=== PATIENT | male | born 1940 | race Caucasian/White ===

== ENCOUNTER 2023-10-26 09:54 | Inpatient (IN) | payer OTHER, MEDICAID ==
[~2023-10-26] VITALS: Ht 172.7 cm; Wt 75.0 kg
[2023-10-26 10:36] VITALS: PULSE 94; RESP 18; O2SAT 96
[2023-10-26 10:59] LABS: Basophils # (auto) 0 10 ^3/uL (0-0.2); Basophils % (auto) 0.3 % (0.0-2.0); Eosinophils # (auto) 0.2 10 ^3/uL (0-0.8); Eosinophils % (auto) 3.2 % (0.0-7.0); Hemoglobin 13.3 g/dL (13.5-17.5); Lymphocytes # (auto) 0.9 10 ^3/uL (0.4-5.4); Lymphocytes % (auto) 16.4 % (10.0-50.0); Mean Corpuscular Hemoglobin 29.4 pg (28.0-32.0); Mean Corpuscular Volume 86.6 fL (80.0-100.0); Monocytes # (auto) 0.4 10 ^3/uL (0-1.3); Monocytes % (auto) 6.5 % (0.0-12.0); Neutrophils % (auto) 73.6 % (37.0-80.0); Nucleated Red Blood Cells % 0.2 %; Red Cell Distribution Width 15.5 % (11.8-14.3); White Blood Cell 5.4 10^3/uL (4.4-10.8)
[2023-10-26 11:20] LABS: Alanine Aminotransferase 15 U/L (7-40); Albumin 4.1 g/dL (3.2-4.8); Alkaline Phosphatase 85 U/L (46-116); Anion Gap 5 (5-15); Aspartate Aminotransferase 12 U/L (13-40); Blood Urea Nitrogen 12 mg/dL (9-23); Calcium 9.6 mg/dL (8.5-10.1); Carbon Dioxide 30 mmol/L (20-30); Chloride 106 mmol/L (98-107); Glucose 81 mg/dL (74-106); INR 1.17 (0.9-1.15); Partial Thromboplastin Time 29.3 SEC (24.5-34.5); Potassium 3.9 mmol/L (3.5-5.1); Prothrombin Time 12.3 sec (9.3-11.8); Sodium 141 mmol/L (136-145)
[2023-10-26 11:21] LABS: Total Protein 6.4 g/dL (5.7-8.2)
[2023-10-26] MEDS ORDERED: ASCO10003 PO (12:27)
[2023-10-26] MEDS ORDERED: ACET-1882 PO (12:27)
[2023-10-26] MEDS ORDERED: ACETAMINOPHEN 325 MG TAB PO PRN (12:30)
[2023-10-26] MEDS: IOHEXOL 350 MG/ML 100ML IJ ONE (16:49)
[2023-10-26] MEDS: SODIUM CHLORIDE 0.9% 1,000 ML IV SCH (17:26)
[2023-10-26 19:15] VITALS: PULSE 94; RESP 18; O2SAT 96
[2023-10-26 22:35] VITALS: BP 148/76; PULSE 82; RESP 23; O2SAT 90
[2023-10-26] MEDS: diphenhdrAMINE HCL 50 MG/1 ML VL IV ONE (22:39)
[2023-10-27] VITALS (7 sets, daily range): BP systolic 119–150; BP diastolic 75–101; PULSE 66–86; RESP 18–21; TEMP 97.6–98.8; O2SAT 90–95
[2023-10-27 06:53] LABS: Basophils # (auto) 0 10 ^3/uL (0-0.2); Eosinophils # (auto) 0.1 10 ^3/uL (0-0.8); Eosinophils % (auto) 2.9 % (0.0-7.0); Hemoglobin 13.2 g/dL (13.5-17.5); Lymphocytes % (auto) 23.1 % (10.0-50.0); Mean Corpuscular Hemoglobin 29.2 pg (28.0-32.0); Mean Corpuscular Hgb Conc. 33.8 g/dL (32.0-36.0); Mean Corpuscular Volume 86.4 fL (80.0-100.0); Monocytes # (auto) 0.4 10 ^3/uL (0-1.3); Monocytes % (auto) 8.7 % (0.0-12.0); Neutrophils # (auto) 2.8 10 ^3/uL (1.6-8.6); Neutrophils % (auto) 64.3 % (37.0-80.0); Nucleated Red Blood Cells % 0.1 %; Red Blood Cells 4.52 10^6/uL (4.5-5.90); Red Cell Distribution Width 15.1 % (11.8-14.3); White Blood Cell 4.4 10^3/uL (4.4-10.8)
[2023-10-27 07:14] LABS: Alanine Aminotransferase 16 U/L (7-40); Albumin 3.8 g/dL (3.2-4.8); Alkaline Phosphatase 82 U/L (46-116); Anion Gap 10 (5-15); Aspartate Aminotransferase 15 U/L (13-40); Bilirubin, Total 1.4 mg/dL (0.2-1.0); Blood Urea Nitrogen 8 mg/dL (9-23); Calcium 9.5 mg/dL (8.5-10.1); Carbon Dioxide 23 mmol/L (20-30); Chloride 106 mmol/L (98-107); Glucose 76 mg/dL (74-106); Potassium 3.7 mmol/L (3.5-5.1); Sodium 139 mmol/L (136-145); Total Protein 6.2 g/dL (5.7-8.2)
[2023-10-27] MEDS: ENOXAPARIN SOD 40 MG/0.4 ML SYRINGE SC SCH (09:29)
[2023-10-27] MEDS: ASCORBIC ACID PO SCH (09:29)
[2023-10-27] MEDS ORDERED: HYDR-4924 PO (17:12)
[2023-10-27] MEDS ORDERED: TRAZ-227 PO (17:12)
[2023-10-27] MEDS ORDERED: DIVA1TAB38 PO (17:12)
[2023-10-27] MEDS ORDERED: LORA-1123 PO (17:12)
[2023-10-27] MEDS ORDERED: QUET50TA PO (17:12)
[2023-10-28] VITALS (7 sets, daily range): BP systolic 118–156; BP diastolic 75–100; PULSE 61–85; RESP 16–20; TEMP 97.5–98.2; O2SAT 95–100
[2023-10-28] MEDS: HALOPERIDOL LACTATE 5 MG/ML INJ VIAL IM PRN (14:26)
[2023-10-28] MEDS: LORazepam 0.5 MG TAB PO PRN (16:29)
[2023-10-28] MEDS: traZODone HCL 50 MG TAB PO SCH (21:10)
[2023-10-28] MEDS: QUEtiapine FUMARATE 25 MG TAB PO SCH (21:11)
[2023-10-29] VITALS (7 sets, daily range): BP systolic 118–140; BP diastolic 68–89; PULSE 60–88; RESP 17–20; TEMP 97–98.7; O2SAT 94–99
== END 2023-10-29 19:34 | disposition home or self-care (01) | DRG 641 ==
LOC: EDBD 09:54 → ER 09:54 → OVERFLOW 12:27 → WEST WING 22:35
PROVIDERS: ADMIT Nurse Practitioner Family; ATTEND Internal Medicine Geriatric Medicine
DX: R62.7 Adult failure to thrive (principal); F02.811 Dementia in other diseases classified elsewhere, unspecified severity, with agitation; M25.512 Pain in left shoulder; G30.9 Alzheimer's disease, unspecified; Z79.1 Long term (current) use of non-steroidal anti-inflammatories (NSAID); Z79.899 Other long term (current) drug therapy; Z68.25 Body mass index [BMI] 25.0-25.9, adult
CPT/HCPCS: 36415; 70450; 71045; 71275; 73020; 80053; 82607; 83605; 83880; 84443; 84484; 85025; 85379; 85610; 85730; 87040; 93005; 93306; 96374; 97110; 97116; 97163; 97530; G0378

== ENCOUNTER 2024-01-01 10:42 | Inpatient (IN) | payer OTHER, MEDICAID ==
[~2024-01-01] VITALS: Ht 180.3 cm; Wt 74.4 kg
[~2024-01-01 10:42] MED LIST: ACET-1882 PO; ASCO10003 PO; DIVA1TAB38 PO; HYDR-4924 PO; LORA-1123 PO; QUET50TA PO; TRAZ-227 PO
[2024-01-01 11:30] LABS: Base Excess 0.9 mmol/L (-2.0-3.0)
[2024-01-01] MEDS: SODIUM CHLORIDE 0.9% 500 ML IVB ONE (11:37)
[2024-01-01 11:38] VITALS: PULSE 64; RESP 14; O2SAT 94
[2024-01-01 12:13] LABS: Basophils # (auto) 0 10 ^3/uL (0-0.2); Basophils % (auto) 0.2 % (0.0-2.0); Eosinophils # (auto) 0.1 10 ^3/uL (0-0.8); Eosinophils % (auto) 1.7 % (0.0-7.0); Hemoglobin 14.8 g/dL (13.5-17.5); Lymphocytes # (auto) 1.3 10 ^3/uL (0.4-5.4); Lymphocytes % (auto) 16.7 % (10.0-50.0); Mean Corpuscular Hemoglobin 30.6 pg (28.0-32.0); Mean Corpuscular Hgb Conc. 33.5 g/dL (32.0-36.0); Mean Corpuscular Volume 91.3 fL (80.0-100.0); Monocytes # (auto) 0.5 10 ^3/uL (0-1.3); Monocytes % (auto) 6.2 % (0.0-12.0); Neutrophils # (auto) 5.8 10 ^3/uL (1.6-8.6); Neutrophils % (auto) 75.2 % (37.0-80.0); Nucleated Red Blood Cells % 0.2 %; Platelet Count (auto) 212 10^3/uL (140-450); Red Blood Cells 4.82 10^6/uL (4.5-5.90); Red Cell Distribution Width 14.7 % (11.8-14.3); White Blood Cell 7.7 10^3/uL (4.4-10.8)
[2024-01-01 12:37] LABS: Alanine Aminotransferase 27 U/L (7-40); Albumin 4.2 g/dL (3.2-4.8); Alkaline Phosphatase 98 U/L (46-116); Anion Gap 8 (5-15); Aspartate Aminotransferase 21 U/L (13-40); BUN/Creatinine Ratio 30.6 (10.0-20.0); Bilirubin, Total 1.6 mg/dL (0.2-1.0); Blood Urea Nitrogen 34 mg/dL (9-23); Calcium 9.9 mg/dL (8.7-10.4); Carbon Dioxide 33 mmol/L (20-30); Chloride 119 mmol/L (98-107); Glucose 77 mg/dL (74-106); Magnesium 2.4 mg/dL (1.6-2.6); Potassium 3.5 mmol/L (3.5-5.1); Sodium 160 mmol/L (136-145); Total Protein 6.8 g/dL (5.7-8.2)
[2024-01-01] MEDS: LORazepam 2MG/ML-1ML VIAL IV ONE (13:17)
[2024-01-01] MEDS: LORazepam 2MG/ML-1ML VIAL ONE (13:22)
[2024-01-01 14:34] LABS: Urine Bacteria None Seen /hpf (None Seen)
[2024-01-01 15:11] LABS: Amphetamine Screen, Urine Neg (NEGATIVE); Barbiturate Scree,Urine Neg (NEGATIVE); Benzodiazephine Screen, Urine Neg (NEGATIVE)
[2024-01-01 15:12] LABS: Cannabinoid Screen, Urine Neg (NEGATIVE); Cocaine Screen, Urine Neg (NEGATIVE); Opiate Scree,Urine Neg (NEGATIVE); Phencyclidine Screen, Urine Neg (NEGATIVE)
[2024-01-01 15:16] LABS: Urine Blood 2+ /uL (Negative); Urine Clarity Clear (Clear); Urine Color Dark-Yellow (Yellow); Urine Mucus FEW (None Seen); Urine Protein, UAD 1+ (Negative); Urine Specific Gravity 1.034 (1.001-1.035); Urine Urobilinogen 4 mg/dL (Negative); Urine WBC 2 /hpf (0 - 3); Urine pH 5.5 (5.0-9.0)
[2024-01-01] MEDS: SODIUM CHLORIDE 0.9% 1,000 ML IV ONE (16:00)
[2024-01-01] MEDS: D5W/SOD CHL 0.45% 1,000 ML IV ONE (17:18)
[2024-01-01] MEDS ORDERED: ACETAMINOPHEN 325 MG TAB PO PRN ×2 (18:30)
[2024-01-01] MEDS ORDERED: DOCUSATE SOD 100 MG CAP PO PRN (18:30)
[2024-01-01 19:13] LABS: Chloride 122 mmol/L (98-107); Potassium 3.7 mmol/L (3.5-5.1); Sodium 159 mmol/L (136-145)
[2024-01-01 19:14] LABS: Anion Gap 7 (5-15); Calcium 9.6 mg/dL (8.7-10.4); Carbon Dioxide 30 mmol/L (20-30)
[2024-01-01 19:19] LABS: BUN/Creatinine Ratio 28.6 (10.0-20.0); Blood Urea Nitrogen 26 mg/dL (9-23); Glucose 83 mg/dL (74-106)
[2024-01-01 21:30] VITALS: PULSE 73; RESP 16; O2SAT 95
[2024-01-01 21:31] LABS: Chloride 121 mmol/L (98-107); Potassium 2.9 mmol/L (3.5-5.1); Sodium 158 mmol/L (136-145)
[2024-01-01 21:33] LABS: Anion Gap 5 (5-15); Calcium 9.6 mg/dL (8.7-10.4); Carbon Dioxide 32 mmol/L (20-30)
[2024-01-01 21:38] LABS: BUN/Creatinine Ratio 28.1 (10.0-20.0); Blood Urea Nitrogen 27 mg/dL (9-23); Glucose 112 mg/dL (74-106)
[2024-01-01] MEDS: ONDANSETRON HCL 4 MG/2 ML VIAL IV PRN (22:49)
[2024-01-01] MEDS: HYDROmorphone HCL 2 MG/ML VL/or syr IV PRN (22:50)
[2024-01-01] MEDS: LORazepam 2MG/ML-1ML VIAL IV PRN (22:50)
[2024-01-02 02:13] LABS: Chloride 121 mmol/L (98-107); Potassium 3.4 mmol/L (3.5-5.1); Sodium 158 mmol/L (136-145)
[2024-01-02 02:14] LABS: Anion Gap 7 (5-15); Calcium 9.3 mg/dL (8.7-10.4); Carbon Dioxide 30 mmol/L (20-30)
[2024-01-02 02:19] LABS: BUN/Creatinine Ratio 27.4 (10.0-20.0); Blood Urea Nitrogen 26 mg/dL (9-23); Glucose 94 mg/dL (74-106)
[2024-01-02 05:09] LABS: Basophils # (auto) 0.1 10 ^3/uL (0-0.2); Basophils % (auto) 0.6 % (0.0-2.0); Eosinophils # (auto) 0.2 10 ^3/uL (0-0.8); Eosinophils % (auto) 2.4 % (0.0-7.0); Hematocrit 41.9 % (41.0-53.0); Lymphocytes # (auto) 1.8 10 ^3/uL (0.4-5.4); Lymphocytes % (auto) 19.4 % (10.0-50.0); Mean Corpuscular Hgb Conc. 33.3 g/dL (32.0-36.0); Mean Corpuscular Volume 90.2 fL (80.0-100.0); Monocytes # (auto) 0.9 10 ^3/uL (0-1.3); Neutrophils # (auto) 6.2 10 ^3/uL (1.6-8.6); Neutrophils % (auto) 67.6 % (37.0-80.0); Nucleated Red Blood Cells % 0.4 %; Platelet Count (auto) 175 10^3/uL (140-450); Red Blood Cells 4.65 10^6/uL (4.5-5.90); Red Cell Distribution Width 14.5 % (11.8-14.3); White Blood Cell 9.2 10^3/uL (4.4-10.8)
[2024-01-02 05:14] LABS: Chloride 120 mmol/L (98-107); Potassium 3.6 mmol/L (3.5-5.1); Sodium 160 mmol/L (136-145)
[2024-01-02 05:15] LABS: Anion Gap 6 (5-15); Calcium 9.4 mg/dL (8.7-10.4); Carbon Dioxide 34 mmol/L (20-30)
[2024-01-02 05:20] LABS: BUN/Creatinine Ratio 33.3 (10.0-20.0); Blood Urea Nitrogen 33 mg/dL (9-23); Glucose 86 mg/dL (74-106)
[2024-01-02 07:35] VITALS: PULSE 82; RESP 12; O2SAT 100
[2024-01-02] MEDS: ENOXAPARIN SOD 40 MG/0.4 ML SYRINGE SC SCH (10:35)
[2024-01-02 11:35] LABS: Calcium 9.7 mg/dL (8.7-10.4); Chloride 120 mmol/L (98-107); Potassium 3.8 mmol/L (3.5-5.1); Sodium 160 mmol/L (136-145)
[2024-01-02 11:36] LABS: Anion Gap 7 (5-15); Carbon Dioxide 33 mmol/L (20-30)
[2024-01-02 11:41] LABS: BUN/Creatinine Ratio 26.3 (10.0-20.0); Blood Urea Nitrogen 25 mg/dL (9-23); Glucose 81 mg/dL (74-106)
[2024-01-02] MEDS: POTASSIUM CHLORIDE 20 MEQ in D5W 5% 1,000 ML IV SCH (13:19)
[2024-01-02 18:43] LABS: Chloride 118 mmol/L (98-107); Potassium 3.3 mmol/L (3.5-5.1); Sodium 157 mmol/L (136-145)
[2024-01-02 18:44] LABS: Anion Gap 8 (5-15); Calcium 9.3 mg/dL (8.7-10.4); Carbon Dioxide 31 mmol/L (20-30)
[2024-01-02 18:49] LABS: BUN/Creatinine Ratio 30.6 (10.0-20.0); Blood Urea Nitrogen 26 mg/dL (9-23); Glucose 116 mg/dL (74-106)
[2024-01-02 19:10] VITALS: PULSE 95; RESP 12; O2SAT 100
[2024-01-02] MEDS ORDERED: D5W 5% 1,000 ML IV SCH (22:45)
[2024-01-02] MEDS: D5W 5% 1,000 ML IV SCH (22:53)
[2024-01-03 06:16] LABS: Basophils # (auto) 0 10 ^3/uL (0-0.2); Basophils % (auto) 0.1 % (0.0-2.0); Eosinophils # (auto) 0.2 10 ^3/uL (0-0.8); Eosinophils % (auto) 2.2 % (0.0-7.0); Hematocrit 39.7 % (41.0-53.0); Hemoglobin 13.4 g/dL (13.5-17.5); Lymphocytes # (auto) 0.9 10 ^3/uL (0.4-5.4); Lymphocytes % (auto) 12.3 % (10.0-50.0); Mean Corpuscular Hemoglobin 30.7 pg (28.0-32.0); Mean Corpuscular Hgb Conc. 33.9 g/dL (32.0-36.0); Mean Corpuscular Volume 90.7 fL (80.0-100.0); Monocytes # (auto) 0.5 10 ^3/uL (0-1.3); Monocytes % (auto) 6.9 % (0.0-12.0); Neutrophils # (auto) 5.9 10 ^3/uL (1.6-8.6); Neutrophils % (auto) 78.5 % (37.0-80.0); Nucleated Red Blood Cells % 0.1 %; Platelet Count (auto) 183 10^3/uL (140-450); Red Blood Cells 4.37 10^6/uL (4.5-5.90); Red Cell Distribution Width 14.4 % (11.8-14.3); White Blood Cell 7.6 10^3/uL (4.4-10.8)
[2024-01-03 06:23] LABS: Chloride 114 mmol/L (98-107); Potassium 2.9 mmol/L (3.5-5.1); Sodium 153 mmol/L (136-145)
[2024-01-03 06:24] LABS: Anion Gap 6 (5-15); Carbon Dioxide 33 mmol/L (20-30)
[2024-01-03 06:25] LABS: Calcium 9.6 mg/dL (8.7-10.4)
[2024-01-03 06:29] LABS: Blood Urea Nitrogen 18 mg/dL (9-23); Glucose 102 mg/dL (74-106)
[2024-01-03 10:40] VITALS: PULSE 79; RESP 18; O2SAT 98
[2024-01-03] MEDS: POTASSIUM CHLORIDE 40 MEQ, LIDOCAINE 1% (LOCAL ANESTH.) 4 ML in SODIUM CHL 0.9% 250 ML IV ONE (11:15)
[2024-01-03] MEDS: POTASSIUM CHLORIDE 40 MEQ in D5W 5% 1,000 ML IV SCH (11:15)
[2024-01-03 17:30] VITALS: BP 135/84; PULSE 73; RESP 16; O2SAT 90
[2024-01-03 18:22] VITALS: BP 135/84; PULSE 64; RESP 20; TEMP 98.3; O2SAT 91
[2024-01-03 20:00] VITALS: PULSE 77; PULSE 89; RESP 18; O2SAT 99
[2024-01-03] MEDS: POTASSIUM CHL 20MEQ/100ML 100 ML IV SCH (20:59)
[2024-01-04 07:30] VITALS: PULSE 82
[2024-01-04 09:00] VITALS: BP 133/66; PULSE 81; RESP 20; TEMP 98.1; O2SAT 96
[2024-01-04 09:25] LABS: Basophils # (auto) 0 10 ^3/uL (0-0.2); Basophils % (auto) 0.3 % (0.0-2.0); Eosinophils # (auto) 0.3 10 ^3/uL (0-0.8); Eosinophils % (auto) 4.1 % (0.0-7.0); Hematocrit 39.5 % (41.0-53.0); Hemoglobin 13.5 g/dL (13.5-17.5); Lymphocytes # (auto) 0.8 10 ^3/uL (0.4-5.4); Lymphocytes % (auto) 11.2 % (10.0-50.0); Mean Corpuscular Hemoglobin 30.5 pg (28.0-32.0); Mean Corpuscular Hgb Conc. 34.1 g/dL (32.0-36.0); Mean Corpuscular Volume 89.3 fL (80.0-100.0); Monocytes # (auto) 0.4 10 ^3/uL (0-1.3); Neutrophils # (auto) 5.5 10 ^3/uL (1.6-8.6); Neutrophils % (auto) 78.4 % (37.0-80.0); Nucleated Red Blood Cells % 0.1 %; Platelet Count (auto) 178 10^3/uL (140-450); Red Blood Cells 4.42 10^6/uL (4.5-5.90); Red Cell Distribution Width 14.3 % (11.8-14.3)
[2024-01-04 09:37] LABS: Anion Gap 4 (5-15); Carbon Dioxide 31 mmol/L (20-30); Chloride 113 mmol/L (98-107); Potassium 4.2 mmol/L (3.5-5.1)
[2024-01-04 09:38] LABS: Calcium 9.5 mg/dL (8.7-10.4)
[2024-01-04 09:42] LABS: Sodium 148 mmol/L (136-145)
[2024-01-04 09:43] LABS: BUN/Creatinine Ratio 18.1 (10.0-20.0); Blood Urea Nitrogen 13 mg/dL (9-23); Glucose 90 mg/dL (74-106)
[2024-01-04] MEDS: SOD CHL 0.45% 1,000 ML IV SCH (10:00)
[2024-01-04] MEDS: Ensure HIGH Protein Chocolate 8oz Bottle PO SCH (12:00)
[2024-01-04 13:00] VITALS: BP 122/67; PULSE 79; RESP 20; TEMP 98.1; O2SAT 99
[2024-01-04 17:00] VITALS: BP 133/81; PULSE 65; RESP 20; TEMP 98.3; O2SAT 100
[2024-01-04 20:00] VITALS: PULSE 66; PULSE 85; RESP 20; O2SAT 100
[2024-01-04 21:00] VITALS: BP 150/36; PULSE 66; RESP 20; TEMP 97.9; O2SAT 100
[2024-01-05] VITALS (9 sets, daily range): BP systolic 118–149; BP diastolic 29–96; PULSE 64–94; RESP 14–20; TEMP 97.4–98.5; O2SAT 95–100
[2024-01-05 06:47] LABS: Basophils # (auto) 0 10 ^3/uL (0-0.2); Basophils % (auto) 0.2 % (0.0-2.0); Eosinophils # (auto) 0.2 10 ^3/uL (0-0.8); Eosinophils % (auto) 3.9 % (0.0-7.0); Hematocrit 35.3 % (41.0-53.0); Hemoglobin 12.4 g/dL (13.5-17.5); Lymphocytes # (auto) 0.8 10 ^3/uL (0.4-5.4); Lymphocytes % (auto) 13.8 % (10.0-50.0); Mean Corpuscular Hgb Conc. 35.2 g/dL (32.0-36.0); Monocytes # (auto) 0.4 10 ^3/uL (0-1.3); Monocytes % (auto) 6.7 % (0.0-12.0); Neutrophils # (auto) 4.6 10 ^3/uL (1.6-8.6); Neutrophils % (auto) 75.4 % (37.0-80.0); Nucleated Red Blood Cells % 0.1 %; Platelet Count (auto) 156 10^3/uL (140-450); Red Blood Cells 4.01 10^6/uL (4.5-5.90); Red Cell Distribution Width 13.9 % (11.8-14.3); White Blood Cell 6.1 10^3/uL (4.4-10.8)
[2024-01-05 09:40] LABS: Chloride 110 mmol/L (98-107); Potassium 3.4 mmol/L (3.5-5.1); Sodium 143 mmol/L (136-145)
[2024-01-05 09:41] LABS: Anion Gap 6 (5-15); Calcium 8.8 mg/dL (8.7-10.4); Carbon Dioxide 27 mmol/L (20-30)
[2024-01-05 09:46] LABS: BUN/Creatinine Ratio 16.9 (10.0-20.0); Blood Urea Nitrogen 10 mg/dL (9-23); Glucose 85 mg/dL (74-106)
[2024-01-05] MEDS: POTASSIUM CHLORIDE 40 MEQ, LIDOCAINE 1% (LOCAL ANESTH.) 4 ML in SODIUM CHL 0.9% 250 ML IV ONE (13:10)
[2024-01-06] VITALS (7 sets, daily range): BP systolic 115–154; BP diastolic 53–67; PULSE 72–84; RESP 14–18; TEMP 97.2–98.5; O2SAT 95–100
[2024-01-06 14:33] LABS: Basophils # (auto) 0 10 ^3/uL (0-0.2); Basophils % (auto) 0.1 % (0.0-2.0); Eosinophils # (auto) 0.2 10 ^3/uL (0-0.8); Hematocrit 34.4 % (41.0-53.0); Lymphocytes # (auto) 0.8 10 ^3/uL (0.4-5.4); Lymphocytes % (auto) 13.3 % (10.0-50.0); Mean Corpuscular Hemoglobin 30.7 pg (28.0-32.0); Mean Corpuscular Hgb Conc. 34.9 g/dL (32.0-36.0); Monocytes # (auto) 0.4 10 ^3/uL (0-1.3); Monocytes % (auto) 7.6 % (0.0-12.0); Neutrophils # (auto) 4.4 10 ^3/uL (1.6-8.6); Nucleated Red Blood Cells % 0.1 %; Platelet Count (auto) 158 10^3/uL (140-450); Red Blood Cells 3.91 10^6/uL (4.5-5.90); White Blood Cell 5.8 10^3/uL (4.4-10.8)
[2024-01-06 15:07] LABS: Anion Gap 6 (5-15); Carbon Dioxide 29 mmol/L (20-30); Chloride 107 mmol/L (98-107); Potassium 3.4 mmol/L (3.5-5.1); Sodium 142 mmol/L (136-145)
[2024-01-06 15:09] LABS: Calcium 8.8 mg/dL (8.7-10.4)
[2024-01-06 15:13] LABS: BUN/Creatinine Ratio 20.9 (10.0-20.0); Blood Urea Nitrogen 14 mg/dL (9-23); Glucose 91 mg/dL (74-106)
[2024-01-06 16:40] LABS: Erythrocyte Sedimentation Rate 13 mm/hr (0-20)
[2024-01-06] MEDS: VALPROIC ACID 250 MG/5 ML ORAL SOLN PO SCH (22:44)
[2024-01-07] VITALS (8 sets, daily range): BP systolic 102–146; BP diastolic 52–78; PULSE 66–88; RESP 15–18; TEMP 97.5–98.1; O2SAT 93–96
[2024-01-07 12:57] LABS: Chloride 106 mmol/L (98-107); Potassium 3.5 mmol/L (3.5-5.1); Sodium 140 mmol/L (136-145)
[2024-01-07 12:58] LABS: Anion Gap 5 (5-15); Carbon Dioxide 29 mmol/L (20-30)
[2024-01-07 12:59] LABS: Calcium 9.3 mg/dL (8.7-10.4)
[2024-01-07 13:03] LABS: BUN/Creatinine Ratio 16.1 (10.0-20.0); Blood Urea Nitrogen 10 mg/dL (9-23); Glucose 90 mg/dL (74-106)
[2024-01-08] VITALS (7 sets, daily range): BP systolic 110–140; BP diastolic 48–78; PULSE 60–90; RESP 16–20; TEMP 97.1–98.7; O2SAT 92–97
[2024-01-09] VITALS (7 sets, daily range): BP systolic 110–143; BP diastolic 45–73; PULSE 65–87; RESP 16–18; TEMP 97.7–98.4; O2SAT 96–98
[2024-01-09] MEDS ORDERED: HALOPERIDOL LACTATE 5 MG/ML INJ VIAL IM PRN (23:00)
[2024-01-10] VITALS (7 sets, daily range): BP systolic 103–148; BP diastolic 47–76; PULSE 64–84; RESP 14–17; TEMP 97.5–99.4; O2SAT 95–100
[2024-01-10] MEDS: HYDROcodone-ACET 5/325MG TAB PO PRN (10:02)
[2024-01-10 22:08] LABS: Vitamin B1, Whole Blood 102.3 nmol/L (66.5-200.0)
[2024-01-11] VITALS (8 sets, daily range): BP systolic 114–139; BP diastolic 39–91; PULSE 59–73; RESP 16–20; TEMP 97.1–98.8; O2SAT 95–98
[2024-01-12 01:00] VITALS: BP 118/70; PULSE 65; RESP 20; TEMP 98.6; O2SAT 98
[2024-01-12 04:47] VITALS: BP 157/67; PULSE 56; RESP 18; TEMP 98.6; O2SAT 98
[2024-01-12 08:00] VITALS: PULSE 57; RESP 18; O2SAT 95
[2024-01-12 20:00] VITALS: PULSE 69; PULSE 71; RESP 17; O2SAT 97
[2024-01-12 21:00] VITALS: BP 126/36; PULSE 71; RESP 17; TEMP 98.1; O2SAT 97
[2024-01-13] MEDS ORDERED: LORazepam 2MG/ML-1ML VIAL IV PRN
[2024-01-13 05:00] VITALS: BP 135/41; PULSE 58; RESP 17; TEMP 98; O2SAT 97
[2024-01-13 08:00] VITALS: PULSE 54; RESP 18; O2SAT 95
[2024-01-13 09:09] VITALS: BP 121/60; PULSE 56; RESP 91; TEMP 98.1; O2SAT 98
[2024-01-13 13:50] VITALS: BP 125/66; PULSE 54; RESP 19; TEMP 98; O2SAT 98
[2024-01-13 17:21] VITALS: BP 126/67; PULSE 58; RESP 19; TEMP 98.2; O2SAT 97
[2024-01-13 21:00] VITALS: BP 119/65; PULSE 60; RESP 20; TEMP 97.6; O2SAT 98
[2024-01-14 01:00] VITALS: BP 129/70; PULSE 62; RESP 20; TEMP 97.9; O2SAT 99
[2024-01-14 05:00] VITALS: BP 135/70; PULSE 68; RESP 18; TEMP 98; O2SAT 98
[2024-01-14 08:00] VITALS: RESP 18
[2024-01-14 09:00] VITALS: BP 130/68; PULSE 65; RESP 19; TEMP 97.8; O2SAT 97
[2024-01-14 11:36] LABS: Chloride 105 mmol/L (98-107); Potassium 3.7 mmol/L (3.5-5.1); Sodium 140 mmol/L (136-145)
[2024-01-14 11:37] LABS: Anion Gap 3 (5-15); Calcium 9.6 mg/dL (8.7-10.4); Carbon Dioxide 32 mmol/L (20-30)
[2024-01-14 11:42] LABS: Glucose 80 mg/dL (74-106)
[2024-01-14 11:43] LABS: BUN/Creatinine Ratio 27.7 (10.0-20.0); Blood Urea Nitrogen 18 mg/dL (9-23)
[2024-01-14 11:49] LABS: Basophils # (auto) 0 10 ^3/uL (0-0.2); Basophils % (auto) 0.4 % (0.0-2.0); Eosinophils # (auto) 0.2 10 ^3/uL (0-0.8); Eosinophils % (auto) 2.6 % (0.0-7.0); Hematocrit 36.9 % (41.0-53.0); Hemoglobin 12.7 g/dL (13.5-17.5); Lymphocytes # (auto) 0.9 10 ^3/uL (0.4-5.4); Lymphocytes % (auto) 12.8 % (10.0-50.0); Mean Corpuscular Hemoglobin 30.7 pg (28.0-32.0); Mean Corpuscular Hgb Conc. 34.5 g/dL (32.0-36.0); Mean Corpuscular Volume 88.9 fL (80.0-100.0); Monocytes # (auto) 0.5 10 ^3/uL (0-1.3); Neutrophils # (auto) 5.4 10 ^3/uL (1.6-8.6); Neutrophils % (auto) 77.2 % (37.0-80.0); Platelet Count (auto) 452 10^3/uL (140-450); Red Blood Cells 4.15 10^6/uL (4.5-5.90); Red Cell Distribution Width 14.1 % (11.8-14.3)
[2024-01-14 13:00] VITALS: BP 125/72; PULSE 58; RESP 20; TEMP 98.4; O2SAT 96
== END 2024-01-14 13:50 | DRG 640 ==
LOC: EDBD 10:42 → ER 10:42 → TELE 18:43 → TELE-EAST 01-03 16:36 → TELE-WESTW 01-09 05:48 → WEST WING 01-14 01:32
PROVIDERS: ADMIT Internal Medicine; ATTEND Nurse Practitioner Acute Care
PROC: 05H933Z Insertion of Infusion Device into Right Brachial Vein, Percutaneous Approach (ICD-10-PCS; principal; 2024-01-05)
PROC: B54MZZA Ultrasonography of Right Upper Extremity Veins, Guidance (ICD-10-PCS; 2024-01-05)
DX: E87.0 Hyperosmolality and hypernatremia (principal); G93.41 Metabolic encephalopathy; E86.0 Dehydration; F02.80 Dementia in other diseases classified elsewhere, unspecified severity, without behavioral disturbance, psychotic disturbance, mood disturbance, and anxiety; E86.1 Hypovolemia; G30.9 Alzheimer's disease, unspecified; F29 Unspecified psychosis not due to a substance or known physiological condition; E87.6 Hypokalemia; I12.9 Hypertensive chronic kidney disease with stage 1 through stage 4 chronic kidney disease, or unspecified chronic kidney disease; I48.91 Unspecified atrial fibrillation; N18.9 Chronic kidney disease, unspecified; N40.0 Benign prostatic hyperplasia without lower urinary tract symptoms; L89.159 Pressure ulcer of sacral region, unspecified stage; Z82.49 Family history of ischemic heart disease and other diseases of the circulatory system; Z81.8 Family history of other mental and behavioral disorders
CPT/HCPCS: 36415; 36600; 70450; 70551; 71045; 76705; 80048; 80053; 80164; 80307; 81001; 82140; 82306; 82607; 82805; 83735; 83930; 84425; 84484; 85025; 85652; 86141; 87081; 87086; 92610; 93005; 97110; 97116; 97163; 97530; G0378; J2001; J2405; J3480

== ENCOUNTER 2024-02-02 10:17 | Inpatient (IN) | payer OTHER, MEDICAID ==
[~2024-02-02] VITALS: Ht 165.1 cm; Wt 61.0 kg
[2024-02-02] MEDS: DEXTROSE (50%) 50ML SYRG IV ONE ×2 (10:22→11:00)
[2024-02-02] MEDS ORDERED: DEXTROSE 50% SYRINGE 50 ML IV ONE (10:24)
[2024-02-02 11:36] LABS: Basophils # (auto) 0 10 ^3/uL (0-0.2); Basophils % (auto) 0.3 % (0.0-2.0); Eosinophils # (auto) 0.2 10 ^3/uL (0-0.8); Eosinophils % (auto) 2.7 % (0.0-7.0); Hematocrit 41.6 % (41.0-53.0); Hemoglobin 13.8 g/dL (13.5-17.5); Lymphocytes # (auto) 0.9 10 ^3/uL (0.4-5.4); Lymphocytes % (auto) 11.9 % (10.0-50.0); Mean Corpuscular Hemoglobin 29.7 pg (28.0-32.0); Mean Corpuscular Hgb Conc. 33.1 g/dL (32.0-36.0); Mean Corpuscular Volume 89.7 fL (80.0-100.0); Monocytes # (auto) 0.5 10 ^3/uL (0-1.3); Monocytes % (auto) 6.5 % (0.0-12.0); Neutrophils # (auto) 6.2 10 ^3/uL (1.6-8.6); Neutrophils % (auto) 78.6 % (37.0-80.0); Nucleated Red Blood Cells % 0.1 %; Platelet Count (auto) 209 10^3/uL (140-450); Red Blood Cells 4.64 10^6/uL (4.5-5.90); Red Cell Distribution Width 14.6 % (11.8-14.3); White Blood Cell 7.9 10^3/uL (4.4-10.8)
[2024-02-02 11:39] VITALS: PULSE 64; RESP 12; O2SAT 98
[2024-02-02] MEDS: DEXTROSE 10% 1,000 ML IV ONE (11:59)
[2024-02-02 12:03] LABS: Alanine Aminotransferase 14 U/L (7-40); Albumin 3.7 g/dL (3.2-4.8); Alkaline Phosphatase 103 U/L (46-116); Anion Gap 7 (5-15); Aspartate Aminotransferase 13 U/L (13-40); BUN/Creatinine Ratio 22.5 (10.0-20.0); Bilirubin, Total 0.5 mg/dL (0.2-1.0); Blood Urea Nitrogen 20 mg/dL (9-23); Calcium 9.9 mg/dL (8.7-10.4); Carbon Dioxide 31 mmol/L (20-31); Chloride 111 mmol/L (98-107); Glucose 147 mg/dL (74-106); Potassium 3.5 mmol/L (3.5-5.1); Sodium 149 mmol/L (136-145); Total Protein 6.1 g/dL (5.7-8.2)
[2024-02-02] MEDS ORDERED: ACETAMINOPHEN 325 MG TAB PO PRN (14:45)
[2024-02-02] MEDS ORDERED: NITROGLYCERIN 0.4 MG SL TAB SL PRN (14:45)
[2024-02-02] MEDS ORDERED: MORPHINE SULFATE INJ 2 MG/ml SYRG IV PRN (14:45)
[2024-02-02] MEDS: PANTOPRAZOLE 40 MG/10 ML VIAL INJ IV ONE (14:53)
[2024-02-02] MEDS ORDERED: SOD CHL 0.45% 1,000 ML IV ONE ×2 (15:00→15:15)
[2024-02-02 16:31] LABS: Urine Bacteria None Seen /hpf (None Seen)
[2024-02-02 16:44] LABS: Urine Blood Negative /uL (Negative); Urine Clarity Ex.Turbid (Clear); Urine Color Yellow (Yellow); Urine Protein, UAD 3+ (Negative); Urine Specific Gravity 1.015 (1.001-1.035); Urine Urobilinogen Normal (Negative); Urine WBC 1319 /hpf (0 - 3); Urine WBC Clumps PRESENT /hpf (None Seen)
[2024-02-02 16:53] LABS: Amphetamine Screen, Urine Neg (NEGATIVE); Barbiturate Scree,Urine Neg (NEGATIVE); Benzodiazephine Screen, Urine Neg (NEGATIVE); Cocaine Screen, Urine Neg (NEGATIVE); Creatinine, Urine 91.12 mg/dL (30.0-125.0)
[2024-02-02 16:54] LABS: Cannabinoid Screen, Urine Neg (NEGATIVE); Opiate Scree,Urine Neg (NEGATIVE); Phencyclidine Screen, Urine Neg (NEGATIVE)
[2024-02-02 16:56] LABS: Protein, Urine 329.3 mg/dL (1-14); Urine Protein/Creatinine Ratio 3.61
[2024-02-02] MEDS: D5W/SOD CHL 0.45%/KCL 20MEQ 1,000 ML IV SCH (17:45)
[2024-02-02 19:30] VITALS: BP 113/55; PULSE 48; PULSE 87; RESP 13; RESP 17; TEMP 91.5; O2SAT 98; O2SAT 99
[2024-02-02] MEDS: cefTRIAXone 1GM/50ML D5W 50 ML IV SCH (21:00)
[2024-02-02 22:20] VITALS: BP 113/55; PULSE 48; RESP 17; TEMP 97.7; O2SAT 99
[2024-02-03] MEDS ORDERED: TAMS-35 PO (00:49)
[2024-02-03 01:00] VITALS: BP 103/55; PULSE 58; RESP 18; TEMP 97.3; O2SAT 100
[2024-02-03 05:00] VITALS: BP 100/55; PULSE 65; RESP 18; TEMP 96.5; O2SAT 95
[2024-02-03 07:50] LABS: Basophils # (auto) 0 10 ^3/uL (0-0.2); Basophils % (auto) 0.2 % (0.0-2.0); Eosinophils # (auto) 0.2 10 ^3/uL (0-0.8); Hematocrit 39.9 % (41.0-53.0); Hemoglobin 13.7 g/dL (13.5-17.5); Lymphocytes # (auto) 0.8 10 ^3/uL (0.4-5.4); Lymphocytes % (auto) 10.7 % (10.0-50.0); Mean Corpuscular Hemoglobin 30.4 pg (28.0-32.0); Mean Corpuscular Hgb Conc. 34.4 g/dL (32.0-36.0); Mean Corpuscular Volume 88.5 fL (80.0-100.0); Monocytes # (auto) 0.4 10 ^3/uL (0-1.3); Monocytes % (auto) 4.7 % (0.0-12.0); Neutrophils # (auto) 6.2 10 ^3/uL (1.6-8.6); Neutrophils % (auto) 81.4 % (37.0-80.0); Nucleated Red Blood Cells % 0.1 %; Platelet Count (auto) 232 10^3/uL (140-450); Red Blood Cells 4.51 10^6/uL (4.5-5.90); Red Cell Distribution Width 14.3 % (11.8-14.3); White Blood Cell 7.6 10^3/uL (4.4-10.8)
[2024-02-03 08:06] LABS: Alanine Aminotransferase 12 U/L (7-40); Albumin 3.7 g/dL (3.2-4.8); Alkaline Phosphatase 105 U/L (46-116); Anion Gap 6 (5-15); Aspartate Aminotransferase 9 U/L (13-40); BUN/Creatinine Ratio 23.4 (10.0-20.0); Bilirubin, Total 0.6 mg/dL (0.2-1.0); Blood Urea Nitrogen 15 mg/dL (9-23); Carbon Dioxide 31 mmol/L (20-31); Chloride 111 mmol/L (98-107); Glucose 82 mg/dL (74-106); Potassium 3.7 mmol/L (3.5-5.1); Sodium 148 mmol/L (136-145)
[2024-02-03 09:00] VITALS: BP 105/45; PULSE 62; RESP 15; TEMP 97.5; O2SAT 43
[2024-02-03] MEDS: ENOXAPARIN SOD 40 MG/0.4 ML SYRINGE SC SCH (09:36)
[2024-02-03] MEDS: PANTOPRAZOLE 40 MG/10 ML VIAL INJ IV SCH (09:36)
[2024-02-03 13:00] VITALS: BP 104/65; PULSE 95; RESP 18; TEMP 97.1; O2SAT 94
[2024-02-03] MEDS: HALOPERIDOL LACTATE 5 MG/ML INJ VIAL IM PRN (17:59)
[2024-02-03 20:00] VITALS: PULSE 75; RESP 14; O2SAT 95
[2024-02-03 22:00] VITALS: BP 124/74; PULSE 75; RESP 14; TEMP 98; O2SAT 95
[2024-02-04] VITALS (7 sets, daily range): BP systolic 108–127; BP diastolic 57–92; PULSE 63–82; RESP 14–24; TEMP 96.6–98.1; O2SAT 93–100
[2024-02-04 10:32] LABS: Anion Gap 5 (5-15); Carbon Dioxide 30 mmol/L (20-31); Chloride 110 mmol/L (98-107); Potassium 3.7 mmol/L (3.5-5.1); Sodium 145 mmol/L (136-145)
[2024-02-04 10:33] LABS: Calcium 9.5 mg/dL (8.7-10.4)
[2024-02-04 10:38] LABS: BUN/Creatinine Ratio 24.6 (10.0-20.0); Blood Urea Nitrogen 15 mg/dL (9-23); Glucose 84 mg/dL (74-106); INR 1.19 (0.9-1.15); Partial Thromboplastin Time 32.7 SEC (24.5-34.5); Prothrombin Time 12.5 sec (9.3-11.8)
[2024-02-04] MEDS ORDERED: VANCOMYCIN PER PHARMACY 0 MG IV SCH (16:00)
[2024-02-04] MEDS: VANCOMYCIN 1GM/250ML 250 ML IV ONE (16:00)
[2024-02-04] MEDS: OLANZapine 5 MG TAB PO ONE (16:15)
[2024-02-04] MEDS ORDERED: fentaNYL CITRATE 100 MCG/2 ML VL ONE (17:34)
[2024-02-04] MEDS ORDERED: ePHEDrine SULFATE 50 MG/ML AMP ONE (18:02)
[2024-02-04] MEDS ORDERED: MEPERIDINE HCL (25 MG/ML) 1ML VIAL ONE (18:14)
[2024-02-04] MEDS: SODIUM CHLORIDE 0.9% 1,000 ML IV ONE (19:00)
[2024-02-04] MEDS: OLANZapine 5 MG TAB PO SCH (22:25)
[2024-02-05 05:00] VITALS: BP 120/85; PULSE 62; RESP 20; TEMP 97; O2SAT 95
[2024-02-05 06:07] LABS: PSA Free 0.35 ng/mL; Prostate Specific Antigen 1.7 ng/mL (0.0-4.0)
[2024-02-05] MEDS: VANCOMYCIN 1GM/200ML PREMIX 200 ML IV ONE (07:58)
[2024-02-05] MEDS: VANCOMYCIN 1GM/250ML 250 ML IV ONE (07:58)
[2024-02-05 08:36] VITALS: BP 122/77; PULSE 81; RESP 19; TEMP 98.1; O2SAT 94
[2024-02-05 12:52] VITALS: BP 112/70; PULSE 71; RESP 19; TEMP 98.4; O2SAT 98
[2024-02-05 17:00] VITALS: BP 118/80; PULSE 76; RESP 18; TEMP 98.1; O2SAT 98
[2024-02-05 19:28] LABS: Basophils # (auto) 0 10 ^3/uL (0-0.2); Basophils % (auto) 0.2 % (0.0-2.0); Eosinophils # (auto) 0.1 10 ^3/uL (0-0.8); Eosinophils % (auto) 1.6 % (0.0-7.0); Hematocrit 40.3 % (41.0-53.0); Hemoglobin 13.6 g/dL (13.5-17.5); Lymphocytes % (auto) 13.2 % (10.0-50.0); Mean Corpuscular Hemoglobin 29.8 pg (28.0-32.0); Mean Corpuscular Hgb Conc. 33.8 g/dL (32.0-36.0); Mean Corpuscular Volume 88.4 fL (80.0-100.0); Monocytes # (auto) 0.4 10 ^3/uL (0-1.3); Monocytes % (auto) 5.6 % (0.0-12.0); Neutrophils # (auto) 6.1 10 ^3/uL (1.6-8.6); Neutrophils % (auto) 79.4 % (37.0-80.0); Nucleated Red Blood Cells % 0.1 %; Platelet Count (auto) 235 10^3/uL (140-450); Red Blood Cells 4.56 10^6/uL (4.5-5.90); Red Cell Distribution Width 14.4 % (11.8-14.3); White Blood Cell 7.7 10^3/uL (4.4-10.8)
[2024-02-05] MEDS: VANCOMYCIN 750mg/150ml 150 ML IV SCH (19:58)
[2024-02-05 20:00] VITALS: PULSE 72; RESP 17; O2SAT 95
[2024-02-05 20:51] VITALS: BP 122/69; PULSE 68; RESP 20; TEMP 98.2; O2SAT 98
[2024-02-06] VITALS (8 sets, daily range): BP systolic 95–142; BP diastolic 48–92; PULSE 55–105; RESP 17–19; TEMP 97.3–98.6; O2SAT 90–99
[2024-02-07] VITALS (8 sets, daily range): BP systolic 100–132; BP diastolic 51–79; PULSE 69–85; RESP 16–18; TEMP 98–98.2; O2SAT 92–97
[2024-02-07 06:49] LABS: Anion Gap 7 (5-15); Carbon Dioxide 26 mmol/L (20-31); Chloride 109 mmol/L (98-107); Potassium 3.2 mmol/L (3.5-5.1); Sodium 142 mmol/L (136-145)
[2024-02-07 06:51] LABS: Calcium 8.8 mg/dL (8.7-10.4)
[2024-02-07 06:55] LABS: Glucose 102 mg/dL (74-106)
[2024-02-07 06:56] LABS: BUN/Creatinine Ratio 15.3 (10.0-20.0); Blood Urea Nitrogen 11 mg/dL (9-23)
[2024-02-07] MEDS: LIDOCAINE 1% (LOCAL ANESTH.) PF 5ml SDV ID ONE (11:15)
[2024-02-07] MEDS: SODIUM CHLOR 0.9% PF (SALINE LOCK) 10ML VIAL/SYR IV SCH (11:43)
[2024-02-08] VITALS (8 sets, daily range): BP systolic 94–124; BP diastolic 51–69; PULSE 64–84; RESP 14–19; TEMP 97.2–98.1; O2SAT 92–100
[2024-02-08 06:16] LABS: Basophils # (auto) 0 10 ^3/uL (0-0.2); Basophils % (auto) 0.4 % (0.0-2.0); Eosinophils # (auto) 0.2 10 ^3/uL (0-0.8); Eosinophils % (auto) 4.7 % (0.0-7.0); Hematocrit 35.1 % (41.0-53.0); Hemoglobin 12.1 g/dL (13.5-17.5); Lymphocytes # (auto) 1.1 10 ^3/uL (0.4-5.4); Lymphocytes % (auto) 22.2 % (10.0-50.0); Mean Corpuscular Hemoglobin 30.3 pg (28.0-32.0); Mean Corpuscular Hgb Conc. 34.5 g/dL (32.0-36.0); Mean Corpuscular Volume 87.8 fL (80.0-100.0); Monocytes # (auto) 0.5 10 ^3/uL (0-1.3); Monocytes % (auto) 9.7 % (0.0-12.0); Platelet Count (auto) 195 10^3/uL (140-450); Red Blood Cells 3.99 10^6/uL (4.5-5.90); Red Cell Distribution Width 14.3 % (11.8-14.3); White Blood Cell 4.8 10^3/uL (4.4-10.8)
[2024-02-09] VITALS (7 sets, daily range): BP systolic 118–151; BP diastolic 55–96; PULSE 57–74; RESP 16–20; TEMP 97.4–98.3; O2SAT 95–100
[2024-02-09 15:31] LABS: Basophils # (auto) 0 10 ^3/uL (0-0.2); Basophils % (auto) 0.4 % (0.0-2.0); Eosinophils # (auto) 0.2 10 ^3/uL (0-0.8); Eosinophils % (auto) 3.8 % (0.0-7.0); Hematocrit 37.5 % (41.0-53.0); Hemoglobin 12.6 g/dL (13.5-17.5); Lymphocytes # (auto) 1.5 10 ^3/uL (0.4-5.4); Lymphocytes % (auto) 27.3 % (10.0-50.0); Mean Corpuscular Hemoglobin 29.5 pg (28.0-32.0); Mean Corpuscular Hgb Conc. 33.7 g/dL (32.0-36.0); Mean Corpuscular Volume 87.5 fL (80.0-100.0); Monocytes # (auto) 0.4 10 ^3/uL (0-1.3); Neutrophils # (auto) 3.2 10 ^3/uL (1.6-8.6); Neutrophils % (auto) 60.5 % (37.0-80.0); Nucleated Red Blood Cells % 0.2 %; Platelet Count (auto) 210 10^3/uL (140-450); Red Blood Cells 4.29 10^6/uL (4.5-5.90); Red Cell Distribution Width 14.5 % (11.8-14.3); White Blood Cell 5.3 10^3/uL (4.4-10.8)
[2024-02-09] MEDS: VANCOMYCIN 750mg/150ml 150 ML IV SCH (20:11)
[2024-02-10] VITALS (7 sets, daily range): BP systolic 92–127; BP diastolic 38–67; PULSE 52–80; RESP 16–19; TEMP 97.4–98.3; O2SAT 93–100
[2024-02-10 00:22] LABS: Potassium 3.6 mmol/L (3.5-5.1)
[2024-02-10 00:29] LABS: Magnesium 1.6 mg/dL (1.6-2.6)
[2024-02-10] MEDS ORDERED: POTASSIUM CHLORIDE 40 MEQ, LIDOCAINE 1% (LOCAL ANESTH.) 4 ML in SODIUM CHL 0.9% 250 ML IV ONE (00:45)
[2024-02-10] MEDS: MAGNESIUM SULFATE 1GM/100ML 100 ML IV ONE (01:22)
[2024-02-10] MEDS: POTASSIUM CHL 20MEQ/100ML 100 ML IV SCH (02:51)
[2024-02-10 06:53] LABS: Basophils # (auto) 0 10 ^3/uL (0-0.2); Basophils % (auto) 0.3 % (0.0-2.0); Eosinophils # (auto) 0.2 10 ^3/uL (0-0.8); Eosinophils % (auto) 4.5 % (0.0-7.0); Hematocrit 32.4 % (41.0-53.0); Hemoglobin 11.2 g/dL (13.5-17.5); Lymphocytes % (auto) 22.5 % (10.0-50.0); Mean Corpuscular Hemoglobin 30.4 pg (28.0-32.0); Mean Corpuscular Hgb Conc. 34.6 g/dL (32.0-36.0); Monocytes # (auto) 0.4 10 ^3/uL (0-1.3); Monocytes % (auto) 8.8 % (0.0-12.0); Neutrophils # (auto) 2.8 10 ^3/uL (1.6-8.6); Neutrophils % (auto) 63.9 % (37.0-80.0); Nucleated Red Blood Cells % 0.2 %; Platelet Count (auto) 190 10^3/uL (140-450); Red Blood Cells 3.68 10^6/uL (4.5-5.90); Red Cell Distribution Width 14.2 % (11.8-14.3); White Blood Cell 4.3 10^3/uL (4.4-10.8)
[2024-02-11] VITALS (8 sets, daily range): BP systolic 90–131; BP diastolic 50–68; PULSE 56–86; RESP 16–18; TEMP 97.9–98.5; O2SAT 96–100
[2024-02-11 14:14] LABS: COVID19 ANTIGEN SOFIA FIA NEGATIVE (NEGATIVE)
[2024-02-12 05:00] VITALS: BP 97/61; PULSE 59; RESP 17
[2024-02-12 08:15] VITALS: O2SAT 96
[2024-02-12 09:42] VITALS: BP 98/57; PULSE 57; O2SAT 94
[2024-02-12 13:00] VITALS: BP 105/59; PULSE 57; RESP 19; TEMP 97.5; O2SAT 97
[2024-02-12 17:00] VITALS: BP 98/53; PULSE 55; RESP 18; TEMP 97.5; O2SAT 100
[2024-02-12 21:00] VITALS: BP 109/61; PULSE 100; RESP 16; TEMP 97.7; O2SAT 92
[2024-02-13 01:00] VITALS: BP 100/52; PULSE 90; RESP 16; TEMP 97.8; O2SAT 92
[2024-02-13 05:00] VITALS: BP 128/63; PULSE 66; RESP 16; TEMP 97.6; O2SAT 96
[2024-02-13 08:15] VITALS: BP 131/64; PULSE 85; RESP 20; TEMP 98.4; O2SAT 94
[2024-02-13 12:00] VITALS: BP 113/54; PULSE 58; RESP 18; TEMP 98.3; O2SAT 96
[2024-02-13] MEDS ORDERED: HALOPERIDOL LACTATE 5 MG/ML INJ VIAL ONE (14:16)
[2024-02-13] MEDS ORDERED: LORazepam 2MG/ML-1ML VIAL IV ONE (14:45)
[2024-02-14 01:00] VITALS: BP 127/74; PULSE 78; RESP 18; TEMP 98; O2SAT 94
[2024-02-14 05:00] VITALS: BP 130/66; PULSE 81; RESP 18; TEMP 97.6; O2SAT 95
[2024-02-14 09:00] VITALS: BP 116/74; PULSE 61; RESP 20; TEMP 97.8; O2SAT 94
[2024-02-14 13:00] VITALS: BP 112/73; PULSE 59; RESP 17; TEMP 97.9; O2SAT 93
[2024-02-14 17:00] VITALS: BP 130/72; PULSE 67; RESP 16; TEMP 97.9; O2SAT 94
[2024-02-14 21:00] VITALS: BP 130/69; PULSE 57; RESP 17; TEMP 97.3; O2SAT 97
[2024-02-15] VITALS (7 sets, daily range): BP systolic 98–132; BP diastolic 50–82; PULSE 50–74; RESP 16–20; TEMP 97.7–98.2; O2SAT 94–99
[2024-02-15] MEDS: ENSURE CLEAR Apple 8oz Carton PO SCH (12:00)
[2024-02-16 05:00] VITALS: BP 123/65; PULSE 52; RESP 20; TEMP 97.4; O2SAT 97
[2024-02-16 07:33] LABS: Chloride 107 mmol/L (98-107); Potassium 3.4 mmol/L (3.5-5.1); Sodium 142 mmol/L (136-145)
[2024-02-16 07:34] LABS: Anion Gap 6 (5-15); Calcium 8.8 mg/dL (8.7-10.4); Carbon Dioxide 29 mmol/L (20-31)
[2024-02-16 07:39] LABS: BUN/Creatinine Ratio 25.8 (10.0-20.0); Blood Urea Nitrogen 17 mg/dL (9-23); Glucose 82 mg/dL (74-106)
[2024-02-16 07:43] LABS: Basophils # (auto) 0 10 ^3/uL (0-0.2); Basophils % (auto) 0.4 % (0.0-2.0); Eosinophils # (auto) 0.3 10 ^3/uL (0-0.8); Eosinophils % (auto) 6.5 % (0.0-7.0); Hematocrit 33.3 % (41.0-53.0); Hemoglobin 11.4 g/dL (13.5-17.5); Lymphocytes # (auto) 1.1 10 ^3/uL (0.4-5.4); Mean Corpuscular Hemoglobin 29.9 pg (28.0-32.0); Mean Corpuscular Hgb Conc. 34.3 g/dL (32.0-36.0); Mean Corpuscular Volume 87.2 fL (80.0-100.0); Monocytes # (auto) 0.3 10 ^3/uL (0-1.3); Monocytes % (auto) 8.9 % (0.0-12.0); Neutrophils # (auto) 2.2 10 ^3/uL (1.6-8.6); Neutrophils % (auto) 56.2 % (37.0-80.0); Nucleated Red Blood Cells % 0.1 %; Platelet Count (auto) 233 10^3/uL (140-450); Red Blood Cells 3.82 10^6/uL (4.5-5.90); Red Cell Distribution Width 14.5 % (11.8-14.3); White Blood Cell 3.9 10^3/uL (4.4-10.8)
[2024-02-16 08:00] VITALS: RESP 18
[2024-02-16 09:00] VITALS: BP 120/58; PULSE 54; RESP 17; TEMP 98.2; O2SAT 97
[2024-02-16 12:52] VITALS: BP 105/40; PULSE 56; RESP 17; TEMP 97.1; O2SAT 96
[2024-02-16] MEDS: POTASSIUM EFFERVESENT TAB 25 MEQ PO ONE (13:10)
[2024-02-16 17:00] VITALS: BP 95/52; PULSE 59; RESP 16; TEMP 98.3; O2SAT 98
[2024-02-16 21:00] VITALS: BP 107/59; PULSE 80; RESP 17; TEMP 98; O2SAT 96
[2024-02-17 01:00] VITALS: BP 107/69; PULSE 62; RESP 17; TEMP 98.1; O2SAT 98
[2024-02-17 09:00] VITALS: BP 110/49; PULSE 53; RESP 21; TEMP 97.4; O2SAT 93
[2024-02-17 13:00] VITALS: BP 107/44; PULSE 55; RESP 20; TEMP 96.5; O2SAT 95
[2024-02-17 17:00] VITALS: BP 90/58; PULSE 64; RESP 21; TEMP 96.6; O2SAT 93
[2024-02-17 20:00] VITALS: PULSE 59; RESP 16; O2SAT 99
[2024-02-17 21:00] VITALS: BP 122/70; PULSE 59; RESP 18; TEMP 98; O2SAT 99
[2024-02-18] VITALS (8 sets, daily range): BP systolic 96–122; BP diastolic 50–69; PULSE 51–72; RESP 16–19; TEMP 97.9–98.8; O2SAT 96–100
[2024-02-19 05:00] VITALS: BP 106/60; PULSE 54; RESP 18; TEMP 97.3; O2SAT 100
[2024-02-19 08:00] VITALS: PULSE 56; RESP 18
[2024-02-19 08:43] VITALS: BP 130/67; PULSE 56; RESP 18; TEMP 98.8; O2SAT 98
[2024-02-19 13:42] VITALS: TEMP 37.1
== END 2024-02-19 16:40 | disposition hospice, home (50) | DRG 853 ==
LOC: EDBD 10:17 → ER 10:17 → TELE 14:41 → OVERFLOW 15:31 → CENTRAL 22:20 → EAST 02-18 21:22
PROVIDERS: ADMIT Nurse Practitioner Family; ATTEND Nurse Practitioner Acute Care
PROC: 0T5C8ZZ Destruction of Bladder Neck, Via Natural or Artificial Opening Endoscopic (ICD-10-PCS; 2024-02-04)
PROC: 0TBC8ZX Excision of Bladder Neck, Via Natural or Artificial Opening Endoscopic, Diagnostic (ICD-10-PCS; principal; 2024-02-04 17:38)
PROC: 02HV33Z Insertion of Infusion Device into Superior Vena Cava, Percutaneous Approach (ICD-10-PCS; 2024-02-07)
PROC: B548ZZA Ultrasonography of Superior Vena Cava, Guidance (ICD-10-PCS; 2024-02-07)
DX: A41.9 Sepsis, unspecified organism (principal); G93.41 Metabolic encephalopathy; R65.21 Severe sepsis with septic shock; N39.0 Urinary tract infection, site not specified; E87.0 Hyperosmolality and hypernatremia; I31.39 Other pericardial effusion (noninflammatory); I48.20 Chronic atrial fibrillation, unspecified; R47.01 Aphasia; L89.621 Pressure ulcer of left heel, stage 1; E86.0 Dehydration; E16.2 Hypoglycemia, unspecified; E87.6 Hypokalemia; F32.A Depression, unspecified; N32.9 Bladder disorder, unspecified; G30.9 Alzheimer's disease, unspecified; F02.C0 Dementia in other diseases classified elsewhere, severe, without behavioral disturbance, psychotic disturbance, mood disturbance, and anxiety; K80.20 Calculus of gallbladder without cholecystitis without obstruction; N40.0 Benign prostatic hyperplasia without lower urinary tract symptoms; L89.151 Pressure ulcer of sacral region, stage 1; Z20.822 Contact with and (suspected) exposure to COVID-19; E86.1 Hypovolemia; F02.80 Dementia in other diseases classified elsewhere, unspecified severity, without behavioral disturbance, psychotic disturbance, mood disturbance, and anxiety; Z79.1 Long term (current) use of non-steroidal anti-inflammatories (NSAID); Z79.899 Other long term (current) drug therapy; Z82.49 Family history of ischemic heart disease and other diseases of the circulatory system; Z81.8 Family history of other mental and behavioral disorders; Z59.71 Insufficient health insurance coverage; Z74.01 Bed confinement status
CPT/HCPCS: 36415; 36569; 70450; 71045; 74176; 76705; 76937; 80048; 80053; 80202; 80307; 81001; 82565; 82570; 82962; 83735; 84132; 84154; 84156; 84300; 84443; 85025; 85610; 85730; 86850; 86900; 86901; 87040; 87081; 87086; 87426; 93005; 93886; 96365; 96375; 97110; 97163; 97530; G0378; J2470; J3480

== ENCOUNTER 2024-03-05 14:40 | Inpatient (IN) | payer OTHER, MEDICAID ==
[~2024-03-05] VITALS: Ht 177.8 cm; Wt 61.0 kg
[2024-03-05] MEDS: PANTOPRAZOLE 40 MG/10 ML VIAL INJ IV ONE (00:31)
[2024-03-05] MEDS: CIPROFLOXACIN 400MG/200ML 200 ML IV ONE (00:31)
[~2024-03-05 14:40] MED LIST changes: +TAMS-35 PO
--- NOTE | 2024-03-05 15:21 | ED.PDOC ---
General HPI Comments 83y M who presents to the ED vi EMS for chief complaint of urinary symptoms. EMS states pt is resident at [facility] and staff noticed pt had blood in urine with associated 02 sat. Pt daughter was consulted and EMS was called for pt to be seen for further evaluation in the ED. EMS states pt has history of dementia and is ax0x0 in the ED and unable to answer any questions. Pt has history of COPD and is on 2 L via NC. . Pt has noted stable vitals in the ED with noted 02 sat of 99%. Pt unable to provide any information at this time Chief Complaint: Urinary Time Seen by MD: 15:17 Primary Care Provider: UNKNOWN Reviewed notes: Medications, Allergies Allergies: Coded Allergies: Lactose Intolerance (GI) (Verified Adverse Reaction, Mild, 02/08/24) Home Meds Reported Medications Tamsulosin Hcl (Flomax) 0.4 Mg Cap, 1 CAP PO DAILY, #30 CAP 11 Refills 02/03/24 Trazodone Hcl (Trazodone Hcl) 50 Mg Tab, 50 MG PO, TAB 10/27/23 Hydroxyzine HCl (Hydroxyzine Hydrochloride) 25 Mg Tab, 25 MG PO, TAB 10/27/23 Divalproex Sodium (Divalproex Sodium) 250 Mg Tab, 250 MG PO, TAB 10/27/23 Lorazepam (Lorazepam) 1 Mg Tab, 1 TAB PO TID, #90 TAB 10/27/23 Quetiapine Fumerate (Seroquel) 50 Mg Tab, 50 MG PO for 30 Days, MG 10/27/23 Ascorbic Acid (Gnp Vitamin C W/Tammy Hips) 1,000 Mg Tab, 1 PO DAILY 10/26/23 Acetaminophen (Acetaminophen) 325 Mg Tab, PO 10/26/23 Information Source: Emergency Med Personnel Mode of Arrival: EMS Brought in by: EMS Past Medical History PAST MEDICAL HISTORY: Alzheimer, COPD, Depression Surgical History: Unknown Family History Family History: Reviewed,noncontributory to illness, Unknown Social History Smoker: Unknown Alcohol: Unknown Drugs: Unknown Lives In: Assisted Care Constitutional: denies: chills, diaphoresis, fatigue, fever, malaise, sweats, weakness, others EENTM: denies: blurred vision, double vision, ear bleeding, ear discharge, ear drainage, ear pain, ear ringing, eye pain, eye redness, hearing loss, mouth pain, mouth swelling, nasal discharge, nose bleeding, nose congestion, nose pain, photophobia, tearing, throat pain, throat swelling, voice changes, others Respiratory: denies: cough, hemoptysis, orthopnea, SOB at rest, shortness of breath, SOB with excertion, stridor, wheezing, others Cardiovascular: denies: chest pain, dizzy spells, diaphoresis, Dyspnea on exertion, edema, irregular heart beat, left arm pain, lightheadedness, palpitations, PND, syncope, others Gastrointestinal: denies: abdomen distended, abdominal pain, blood streaked bowels, constipated, diarrhea, dysphagia, difficulty swallowing, hematemesis, melena, nausea, poor appetite, poor fluid intake, rectal bleeding, rectal pain, vomiting, others Genitourinary: reports: hematuria; denies: burning, dysuria, flank pain, frequency, incontinence, penile discharge, penile sore, pain, testicle pain, testicle swelling, urgency, others Neurological: denies: dizziness, fainting, headache, left sided numbness, left sided weakness, numbness, paresthesia, pre-existing deficit, right sided numbness, right sided weakness, seizure, speech problems, tingling, tremors, weakness, others Musculoskeletal: denies: back pain, gout, joint pain, joint swelling, muscle pain, muscle stiffness, neck pain, others Integumetry: denies: bruises, change in color, change in hair/nails, dryness, laceration, lesions, lumps, rash, wounds, others Allergic/Immunocompromised: denies: Difficulty Healing, Frequent Infections, Hives, Itching, others Hematologic/Lymphatic: denies: anemia, blood clots, easy bleeding, easy bruising, swollen glands, others Endocrine: denies: excessive hunger, excessive sweating, excessive thirst, excessive urination, flushing, intolerance to cold, intolerance to heat, unexplained weight gain, unexplained weight loss, others Psychiatric: denies: anxiety, bipolar disorder, depression, hopeless, panic disorder, schizophrenia, sleepless, suicidal, others All Other Systems: Reviewed and Negative Physical Exam General Appearance: Moderate Distress HEENT: Normal ENT Inspection, Pharynx Normal, TMs Normal Neck: Full Range of Motion, Non-Tender, Normal, Normal Inspection Respiratory: Chest Non-Tender, Lungs Clear, No Accessory Muscle Use, No Respiratory Distress, Normal Breath Sounds Cardiovascular: No Edema, No JVD, No Murmur, No Gallop, Normal Peripheral Pulses, Regular Rate/Rhythm Breast Exam: Deferred Gastrointestinal: No Organomegaly, Non Tender, No Pulsatile Mass, Normal Bowel Sounds, Soft Genitalia: Deferred Pelvic: Deferred Rectal: Deferred Extremities: No calf tenderness, Normal capillary refill, Normal inspection, Normal range of motion, Non-tender, No pedal edema Musculoskeletal : Apperance: Normal Neurologic: Disoriented Cerebellar Function: NOT DONE Reflexes: NOT DONE Skin: Pallor Peripheral Pulses: 3+ Radial (R), 3+ Radial (L) Lymphatic: No Adenopathy Was a procedure done? Was a procedure done?: No Differential Diagnosis Kidney stone (Female): Musculoskeletal pain, Urinary obstruction, Urolithiasis Urinary Problem (Male): Epididymitis, Prostatitis, Plelonephritis, Urethritis, Urinary Retention, UTI X-Ray, Labs, Meds, VS Vital Signs Date Time Temp Pulse Resp B/P (MAP) Pulse Ox O2 Delivery O2 Flow Rate FiO2 03/05/24 15:30 84 14 99 Nasal Cannula* 2 28 03/05/24 15:30 97.9 84 14 122/58 (79) 99 97.9 03/05/24 14:59 97.9 90 24 157/72 (100) 99 Lab Test 03/05/24 15:26 Range/Units White Blood Count 7.6 4.4-10.8 10^3/uL Red Blood Count 4.88 4.5-5.90 10^6/uL Hemoglobin 14.8 13.5-17.5 g/dL Hematocrit 45.7 41.0-53.0 % Mean Corpuscular Volume 93.7 80.0-100.0 fL Mean Corpuscular Hemoglobin 30.4 28.0-32.0 pg Mean Corpuscular Hemoglobin Concent 32.4 32.0-36.0 g/dL Red Cell Distribution Width 15.9 H 11.8-14.3 % Platelet Count 246 140-450 10^3/uL Mean Platelet Volume 9.3 6.9-10.8 fL Neutrophils (%) (Auto) 71.6 37.0-80.0 % Lymphocytes (%) (Auto) 17.6 10.0-50.0 % Monocytes (%) (Auto) 6.5 0.0-12.0 % Eosinophils (%) (Auto) 4.1 0.0-7.0 % Basophils (%) (Auto) 0.2 0.0-2.0 % Neutrophils # (Auto) 5.5 1.6-8.6 10 ^3/uL Lymphocytes # (Auto) 1.3 0.4-5.4 10 ^3/uL Monocytes # (Auto) 0.5 0-1.3 10 ^3/uL Eosinophils # (Auto) 0.3 0-0.8 10 ^3/uL Basophils # (Auto) 0 0-0.2 10 ^3/uL Nucleated Red Blood Cells 0.2 % Sodium Level 151 H 136-145 mmol/L Potassium Level 4.7 3.5-5.1 mmol/L Chloride Level 115 H 98-107 mmol/L Carbon Dioxide Level 25 20-31 mmol/L Anion Gap 11 5-15 Blood Urea Nitrogen 37 H 9-23 mg/dL Creatinine 0.93 0.700-1.30 mg/dL Glomerular Filtration Rate Calc 82 >90 mL/min BUN/Creatinine Ratio 39.8 H 10.0-20.0 Serum Glucose 89 74-106 mg/dL Calcium Level 10.0 8.7-10.4 mg/dL Troponin I High Sensitivity 13 </=54 ng/L PROCEDURE(s): CXRP - CHEST PORTABLE IMPRESSION: No acute disease. Patient baseline. History of dementia. Sodium elevated. Vitals stable. Family was worried about his confusion. Denies any falls. Establish intravenous access. Was given fluid. Hypernatremia. Free water. WBC within normal limits. Hemoglobin within normal limits. Reviewed his previous visit. EKG reviewed does not show any acute changes. Cardiac marker within normal limits. Waiting for family. Continue cardiac monitoring. Chest x-ray reviewed does not show any acute changes. Time of 1ST Reevaluation: 15:50 Reevaluation 1ST: Unchanged Patient Education/Counseling: Other (pt has history of dementia) Family Education/Counseling: No Family Present Departure 1 Departure Time of Disposition: 16:36 Impression: Primary Impression: Metabolic encephalopathy Additional Impression: Hypernatremia Disposition: 09 ADMITTED INPATIENT Admit to: Med Surg Condition: Guarded Critical Care Note Critical Care Time?: Yes (45 min-critical care time only) Stability Stability form required: No Heart Score Heart Score: Heart Score Response (Comments) Value History N/A 0 EKG N/A 0 Age N/A 0 Risk Factors N/A 0 Troponin N/A 0 Total 0 I personally scribed for RONALDO PHILLIPS MD ([email or web address]) on 03/05/24 at 15:21. Electronically submitted by Maty Del Toro ([email or web address]). I personally scribed for RONALDO PHILLIPS MD ([email or web address]) on 03/05/24 at 16:53. Electronically submitted by Maty Del Toro ([email or web address]). RONALDO PHILLIPS MD Mar 05, 2024 15:21
[2024-03-05 15:30] VITALS: PULSE 84; RESP 14; O2SAT 99
[2024-03-05 15:54] LABS: Basophils # (auto) 0 10 ^3/uL (0-0.2); Basophils % (auto) 0.2 % (0.0-2.0); Eosinophils # (auto) 0.3 10 ^3/uL (0-0.8); Eosinophils % (auto) 4.1 % (0.0-7.0); Hematocrit 45.7 % (41.0-53.0); Hemoglobin 14.8 g/dL (13.5-17.5); Lymphocytes # (auto) 1.3 10 ^3/uL (0.4-5.4); Lymphocytes % (auto) 17.6 % (10.0-50.0); Mean Corpuscular Hemoglobin 30.4 pg (28.0-32.0); Mean Corpuscular Hgb Conc. 32.4 g/dL (32.0-36.0); Mean Corpuscular Volume 93.7 fL (80.0-100.0); Monocytes # (auto) 0.5 10 ^3/uL (0-1.3); Monocytes % (auto) 6.5 % (0.0-12.0); Neutrophils # (auto) 5.5 10 ^3/uL (1.6-8.6); Neutrophils % (auto) 71.6 % (37.0-80.0); Nucleated Red Blood Cells % 0.2 %; Platelet Count (auto) 246 10^3/uL (140-450); Red Blood Cells 4.88 10^6/uL (4.5-5.90); Red Cell Distribution Width 15.9 % (11.8-14.3); White Blood Cell 7.6 10^3/uL (4.4-10.8)
[2024-03-05 16:24] LABS: Chloride 115 mmol/L (98-107); Potassium 4.7 mmol/L (3.5-5.1); Sodium 151 mmol/L (136-145)
[2024-03-05 16:25] LABS: Anion Gap 11 (5-15); Carbon Dioxide 25 mmol/L (20-31)
[2024-03-05 16:30] LABS: BUN/Creatinine Ratio 39.8 (10.0-20.0); Blood Urea Nitrogen 37 mg/dL (9-23); Glucose 89 mg/dL (74-106)
--- NOTE | 2024-03-05 16:31 | DVH ---
CHEST RADIOGRAPH Indication:sob Technique: Single frontal view of the chest was obtained COMPARISON: XY CHEST PORTABLE on DOS: 02/04/24, XY CHEST PORTABLE on DOS: 01/01/24, XY CHEST PORTABLE on DOS: 10/26/23 FINDINGS: Lines and Tubes: None Lungs: Clear Pleura: No effusion. No pneumothorax. Cardiomediastinal contours: Unremarkable Bones: Unremarkable IMPRESSION: No acute disease.
[2024-03-05 17:18] LABS: Urine Bacteria None Seen /hpf (None Seen)
[2024-03-05 17:53] LABS: Urine Blood 3+ /uL (Negative); Urine Clarity Ex.Turbid (Clear); Urine Color Dark-Red (Yellow); Urine Protein, UAD 2+ (Negative); Urine Urobilinogen Normal (Negative)
[2024-03-05 17:55] LABS: Urine WBC 8212 /hpf (0 - 3)
[2024-03-05] MEDS ORDERED: NITROGLYCERIN 0.4 MG SL TAB SL PRN (20:45)
[2024-03-05] MEDS ORDERED: ONDANSETRON HCL 4 MG/2 ML VIAL IV PRN (20:45)
[2024-03-05] MEDS ORDERED: ACETAMINOPHEN 325 MG TAB PO PRN (20:45)
[2024-03-05] MEDS ORDERED: MORPHINE SULFATE INJ 2 MG/ml SYRG IV PRN ×2 (20:45)
[2024-03-05] MEDS: ENOXAPARIN SOD 40 MG/0.4 ML SYRINGE SC SCH (21:32)
[2024-03-05] MEDS: SODIUM CHLOR 0.9% PF (SALINE LOCK) 10ML VIAL/SYR IV SCH (22:29)
[2024-03-05 23:00] VITALS: PULSE 85
--- NOTE | 2024-03-05 23:03 | DVHHPRES ---
History of Present Illness Resident Creating Document: ITZEL KEVIN RESIDENT History of Present Illness AARON LOGAN is a 83 years old male with PMH of Alzheimer's, COPD, depression from [facility] facility presented to the ED with the chief complaints of blood in urine noted by staff and altered. Patient is poor historian, unable to answer any question. Past Medical History Alzheimer's, COPD, depression Past Surgical History Unable to obtain Family History Unable to obtain Past Social History Lives at [facility]. Review of Systems Review of Systems Unable to obtain due to patient clinical status Allergies: Coded Allergies: Lactose Intolerance (GI) (Verified Adverse Reaction, Mild, 02/08/24) Medications Current Medications Medications Dose Ordered Sig/Candice Route Start Time Stop Time Status Last Admin Dose Admin Sodium Chloride 10 ml Q8HR IV 03/05/24 22:00 03/05/24 22:29 10 ML Ondansetron HCl 4 mg Q4HP PRN IV 03/05/24 20:45 Acetaminophen 650 mg Q6HP PRN PO 03/05/24 20:45 Morphine Sulfate 2 mg Q4HPRN PRN IV 03/05/24 20:45 Enoxaparin Sodium 40 mg DAILY SC 03/05/24 20:45 03/05/24 21:32 40 MG Nitroglycerin 0.4 mg Q5MINP PRN SL 03/05/24 20:45 Morphine Sulfate 2 mg Q30M PRN IV 03/05/24 20:45 Cefepime HCl 50 ml @ 12.5 mls/hr Q8HR IV 03/06/24 06:00 UNV Ciprofloxacin 200 ml @ 200 mls/hr DAILY IV 03/05/24 23:00 UNV Exam Vital Signs Vital Signs Date Time Temp Pulse Resp B/P (MAP) Pulse Ox O2 Delivery O2 Flow Rate FiO2 03/05/24 22:00 98 18 112/65 (81) 97 03/05/24 19:35 98.3 98.3 03/05/24 15:30 Nasal Cannula* 2 28 Exam Pt is lying on bed, limited physical exam due to patient clinical status General Appearance: altered, Oriented X 0 HEENT: Atraumatic, Mucous membranes moist/pink Respiratory: Clear to auscultation, Normal air movement, No added sounds Cardiovascular: Regular rate, Normal S1, Normal S2, No murmurs Abdominal: Active bowel sounds, Soft, no distention, no tenderness Extremities: No edema, Normal pulses, Skin: deferred Neuro: deferred Psych/Mental Status: deferred Nurse was there as sharperone during examination Labs/Xrays Labs Test 03/05/24 17:00 03/05/24 15:26 Range/Units Urine Color Dark-red Yellow Urine Clarity Ex.turbid Clear Urine pH 6.0 5.0-9.0 Urine Specific [place] 1.030 1.001-1.035 Urine Protein 2+ H Negative Urine Ketones Negative Negative Urine Blood 3+ H Negative /uL Urine Nitrite Negative Negative Urine Bilirubin 1+ Negative Urine Urobilinogen Normal Negative mg/dL Urine Leukocyte Esterase Negative Negative /uL Urine RBC 2655802 0 - 3 /hpf Urine WBC 8212 0 - 3 /hpf Urine Squamous Epithelial Cells None seen <5 /hpf Urine Bacteria None seen None Seen /hpf Urine Glucose 3+ H Normal mg/dL White Blood Count 7.6 4.4-10.8 10^3/uL Red Blood Count 4.88 4.5-5.90 10^6/uL Hemoglobin 14.8 13.5-17.5 g/dL Hematocrit 45.7 41.0-53.0 % Mean Corpuscular Volume 93.7 80.0-100.0 fL Mean Corpuscular Hemoglobin 30.4 28.0-32.0 pg Mean Corpuscular Hemoglobin Concent 32.4 32.0-36.0 g/dL Red Cell Distribution Width 15.9 H 11.8-14.3 % Platelet Count 246 140-450 10^3/uL Mean Platelet Volume 9.3 6.9-10.8 fL Neutrophils (%) (Auto) 71.6 37.0-80.0 % Lymphocytes (%) (Auto) 17.6 10.0-50.0 % Monocytes (%) (Auto) 6.5 0.0-12.0 % Eosinophils (%) (Auto) 4.1 0.0-7.0 % Basophils (%) (Auto) 0.2 0.0-2.0 % Neutrophils # (Auto) 5.5 1.6-8.6 10 ^3/uL Lymphocytes # (Auto) 1.3 0.4-5.4 10 ^3/uL Monocytes # (Auto) 0.5 0-1.3 10 ^3/uL Eosinophils # (Auto) 0.3 0-0.8 10 ^3/uL Basophils # (Auto) 0 0-0.2 10 ^3/uL Nucleated Red Blood Cells 0.2 % Sodium Level 151 H 136-145 mmol/L Potassium Level 4.7 3.5-5.1 mmol/L Chloride Level 115 H 98-107 mmol/L Carbon Dioxide Level 25 20-31 mmol/L Anion Gap 11 5-15 Blood Urea Nitrogen 37 H 9-23 mg/dL Creatinine 0.93 0.700-1.30 mg/dL Glomerular Filtration Rate Calc 82 >90 mL/min BUN/Creatinine Ratio 39.8 H 10.0-20.0 Serum Glucose 89 74-106 mg/dL Calcium Level 10.0 8.7-10.4 mg/dL Troponin I High Sensitivity 13 </=54 ng/L Assessment/Plan Assessment/Plan # Acute metabolic encephalopathy likely due to UTI # acute complicated UTI -evident on urinalysis -ordered urine culture -currently on cefepime and ciprofloxacin -ordered UDS # hematuria -ordered CT abdominal pelvis, pending -urology consulted evaluation # hypernatremia -monitor lab for now Lovenox for now protonix Clear liquid diet if passed swallow test Reconciled home meds Goals of care discussed with the patient for more than 27 minutes: Full code status Case management discussed with Dr. Hough, patient's nurse Plan discussed with: Patient My Orders Orders - ITZEL KEVIN RESIDENT Procedure Category Date Status Time Admit ADMIT 03/05/24 Transmitted 20:35 Allergies FRANKO 03/05/24 In Process 20:35 Code Status CODE 03/05/24 Transmitted 20:35 Sodium Chloride Lock PHA 03/05/24 In Process (Saline Lock Ns) 22:00 Ondansetron Hcl PHA 03/05/24 In Process (Zofran) 20:45 Complete Blood Count LAB 03/06/24 Verified 04:00 Comprehensive LAB 03/06/24 Verified Metabolic Panel 04:00 * Swallow Request ST 03/05/24 Transmitted 20:35 Acetaminophen Tablet PHA 03/05/24 In Process (Tylenol Tablet) 20:45 Clear Liq Diet DIET 03/06/24 Transmitted Breakfast Morphine Sulfate PHA 03/05/24 In Process Injection 20:45 Enoxaparin Sodium PHA 03/05/24 In Process (Lovenox) 20:45 Nitroglycerin PHA 03/05/24 In Process Sublingual (Ntrostat 20:45 Morphine Sulfate PHA 03/05/24 In Process Injection 20:45 Oxygen By Nasal RT 03/05/24 Transmitted Cannula 20:35 Stat Ekg For Chest FRANKO 03/05/24 In Process Pain 20:35 Notify Of Changes FRANKO 03/05/24 In Process From Base 20:35 Bird Raiser For FRANKO 03/05/24 In Process 24 Hours 20:35 Emergency Dysrhythmia FRANKO 03/05/24 In Process Protocol 20:35 Rhythm Strips Once FRANKO 03/05/24 In Process Every Shift 20:35 PTPTT LAB 03/06/24 Verified 04:00 Hemoglobin A1c LAB 03/05/24 Logged 22:48 Drug Screen LAB 03/05/24 In Process 22:48 Comprehensive LAB 03/05/24 Logged Metabolic Panel 22:48 Complete Blood Count LAB 03/05/24 Logged 22:48 Vitamin D, 25-Hydroxy LAB 03/05/24 Logged 22:48 Vitamin B12 LAB 03/05/24 Logged 22:48 Thyroid Stimulating LAB 03/05/24 Logged Hormone 22:48 Stool Occult Blood LAB 03/06/24 Verified 04:00 Cefepime 1gm/ 50ml PHA 03/06/24 Logged (Maxipime 1gm/50ml) 06:00 Ciprofloxacin PHA 03/05/24 Logged 400mg/200ml (Cipro Iv) 23:00 Urine Bacterial AYDEN 03/05/24 In Process Culture 22:48 Creatine Kinase LAB 03/05/24 Logged 22:55 Ct Ab Pel Wo Con-No CT 03/05/24 Logged Oral Or Iv 22:55 * Urology Consult CONS 03/05/24 Transmitted 22:56 Pantoprazole PHA 03/05/24 Verified (Protonix) 23:00 Pantoprazole PHA 03/06/24 Verified (Protonix) 10:00 ITZEL KEVIN RESIDENT Mar 05, 2024 23:02
[2024-03-05 23:08] VITALS: BP 121/62; PULSE 56; RESP 16; TEMP 98; O2SAT 90
[2024-03-05 23:18] LABS: Amphetamine Screen, Urine Neg (NEGATIVE); Barbiturate Scree,Urine Neg (NEGATIVE); Benzodiazephine Screen, Urine Neg (NEGATIVE); Cocaine Screen, Urine Neg (NEGATIVE); Opiate Scree,Urine Neg (NEGATIVE)
[2024-03-05 23:19] LABS: Cannabinoid Screen, Urine Neg (NEGATIVE); Phencyclidine Screen, Urine Neg (NEGATIVE)
[2024-03-05 23:34] LABS: Basophils # (auto) 0 10 ^3/uL (0-0.2); Basophils % (auto) 0.1 % (0.0-2.0); Eosinophils # (auto) 0.3 10 ^3/uL (0-0.8); Eosinophils % (auto) 3.8 % (0.0-7.0); Hematocrit 40.9 % (41.0-53.0); Hemoglobin 13.8 g/dL (13.5-17.5); Lymphocytes # (auto) 1.2 10 ^3/uL (0.4-5.4); Lymphocytes % (auto) 16.3 % (10.0-50.0); Mean Corpuscular Hemoglobin 30.2 pg (28.0-32.0); Mean Corpuscular Hgb Conc. 33.9 g/dL (32.0-36.0); Mean Corpuscular Volume 89.2 fL (80.0-100.0); Monocytes # (auto) 0.4 10 ^3/uL (0-1.3); Monocytes % (auto) 5.6 % (0.0-12.0); Neutrophils # (auto) 5.3 10 ^3/uL (1.6-8.6); Neutrophils % (auto) 74.2 % (37.0-80.0); Nucleated Red Blood Cells % 0.1 %; Platelet Count (auto) 252 10^3/uL (140-450); Red Blood Cells 4.58 10^6/uL (4.5-5.90); Red Cell Distribution Width 15.3 % (11.8-14.3); White Blood Cell 7.2 10^3/uL (4.4-10.8)
[2024-03-05 23:50] LABS: Alanine Aminotransferase 21 U/L (7-40); Albumin 4.1 g/dL (3.2-4.8); Alkaline Phosphatase 102 U/L (46-116); Anion Gap 7 (5-15); Aspartate Aminotransferase 20 U/L (13-40); BUN/Creatinine Ratio 41.7 (10.0-20.0); Bilirubin, Total 0.8 mg/dL (0.2-1.0); Blood Urea Nitrogen 35 mg/dL (9-23); Carbon Dioxide 32 mmol/L (20-31); Chloride 113 mmol/L (98-107); Glucose 92 mg/dL (74-106); Potassium 3.8 mmol/L (3.5-5.1); Sodium 152 mmol/L (136-145); Total Protein 6.2 g/dL (5.7-8.2)
[2024-03-06] VITALS (11 sets, daily range): BP systolic 116–131; BP diastolic 60–69; PULSE 56–92; RESP 16–18; TEMP 98–98.6; O2SAT 90–94
--- NOTE | 2024-03-06 00:17 | DVH ---
EXAM: CT STROKE CTH INDICATION: Stroke TECHNIQUE: CT of the head without intravenous contrast. Radiation Dose : 1. Head: CT Dose: CTDI volume is 34 mGy. Dose-length product is 860 mGy*cm The dose indicators for CT are the volume Computed Tomography (CT) Dose Index (CTDIvol) and the Dose Length Product (DLP), and are measured in units of mGy and mGy-cm, respectively. These indicators are not patient dose, but values generated from the CT scanner acquisition factors. The report includes radiation exposure data for exposures received during this examination. COMPARISON: CT HEAD WITHOUT CONTRAST on DOS: 02/02/24, CT HEAD WITHOUT CONTRAST on DOS: 01/01/24, CT HEA D WITHOUT CONTRAST on DOS: 10/26/23 FINDINGS: There is no evidence of acute intracranial hemorrhage, extra-axial collection, mass effect, midline s hift, herniation or hydrocephalus. The ventricles, sulci and cisterns are age appropriate. The powell-white differentiation is intact. Patchy periventricular and subcortical white matter hypoattenuation is nonspecific but may be related to small vessel ischemic disease. The visualized paranasal sinuses and mastoid air cells are clear. The surrounding soft tissues and osseous structures are unremarkable. IMPRESSION: No acute intracranial abnormality. Severe chronic small vessel ischemic disease. Age-related atrophy. If there is high clinical concern for acute infarct consider MRI for further evaluation. Radiation optimization: All CT scans at this facility use at least one of these dose optimization seymour hniques: automated exposure control mA and/or kV adjustment per patient size (includes targeted exam s where dose is matched to clinical indication) or iterative reconstruction.
[2024-03-06] MEDS: SOD CHL 0.45% 1,000 ML IV SCH (01:00)
[2024-03-06 01:16] LABS: Base Excess 2.9 mmol/L (-2.0-3.0)
[2024-03-06] MEDS: CEFEPIME 1GM/ 50ML 50 ML IV ONE (01:50)
--- NOTE | 2024-03-06 04:10 | DVH ---
Exam: CT CT AB PEL WO CON-NO ORAL OR IV History: Hematuria,UTi complicated Comparison Study: None available at time of dictation. TECHNIQUE: Multidetector CT of the abdomen was performed from lung bases to pubic symphysis. Imaging was performed without IV contrast. Axial, coronal and sagittal multiplanar reformats were obtained fr om the axial data set by the technologist. Radiation Dose Information: CT Dose: CTDI volume is 25 mGy. Dose-length product is 250 mGy*cm FINDINGS: Evaluation of solid organs is limited due to lack of intravenous contrast use. Findings: Lung Bases: No acute or significant lung base finding. Normal heart size. No pleural or pericardial effusion. Liver: Hepatic steatosis. Gallbladder and Biliary Tree: Unremarkable Spleen: Unremarkable Pancreas: The pancreas is grossly normal in appearance. Adrenal Glands: Unremarkable Kidneys: Kidneys are grossly normal without calculi or hydronephrosis. Possible nonobstructing 2 mm l eft proximal ureteral calculus. This could represent punctate atherosclerotic calcification within th e left renal artery alternatively. No hydronephrosis. Bladder: Garza catheter present within the bladder. Hypodense foci seen within the bladder, which cou ld represent hemorrhage. Bowel: The stomach is grossly normal in appearance. Small bowel and colon are normal in caliber and d istribution. The appendix is not visualized; however, no secondary findings of acute appendicitis id entified. Ascites: Absent Lymphadenopathy: No mesenteric, retroperitoneal or periportal lymphadenopathy. Abdominal Wall and Mesentery: Unremarkable. Vasculature: The visualized abdominal aorta is normal in size and caliber. Evaluation of abdominal a nd pelvic vessels is limited due to lack of intravenous contrast. Pelvic Organs: Unremarkable Musculoskeletal: No aggressive focal bony lesions, acute fractures or dislocation. Soft tissues: Unremarkable IMPRESSION: Possible nonobstructing 2 mm left proximal ureteral calculus. This could represent punctate atheroscl erotic calcification within the left renal artery alternatively. No hydronephrosis. Garza catheter present within the bladder. Hypodense foci seen within the bladder, which could repres ent hemorrhage. Radiation optimization: All CT scans at this facility use at least one of these dose optimization seymour hniques: automated exposure control mA and/or kV adjustment per patient size (includes targeted exam s where dose is matched to clinical indication) or iterative reconstruction.
[2024-03-06] MEDS: CEFEPIME 1GM/ 50ML 50 ML IV SCH (05:54)
[2024-03-06 05:59] LABS: Basophils # (auto) 0 10 ^3/uL (0-0.2); Basophils % (auto) 0.2 % (0.0-2.0); Eosinophils # (auto) 0.2 10 ^3/uL (0-0.8); Eosinophils % (auto) 3.4 % (0.0-7.0); Hematocrit 40.1 % (41.0-53.0); Hemoglobin 13.3 g/dL (13.5-17.5); Lymphocytes # (auto) 1.4 10 ^3/uL (0.4-5.4); Lymphocytes % (auto) 18.7 % (10.0-50.0); Mean Corpuscular Hgb Conc. 33.2 g/dL (32.0-36.0); Mean Corpuscular Volume 90.3 fL (80.0-100.0); Monocytes # (auto) 0.5 10 ^3/uL (0-1.3); Monocytes % (auto) 6.4 % (0.0-12.0); Neutrophils # (auto) 5.1 10 ^3/uL (1.6-8.6); Neutrophils % (auto) 71.3 % (37.0-80.0); Nucleated Red Blood Cells % 0.2 %; Platelet Count (auto) 222 10^3/uL (140-450); Red Blood Cells 4.44 10^6/uL (4.5-5.90); Red Cell Distribution Width 15.4 % (11.8-14.3); White Blood Cell 7.2 10^3/uL (4.4-10.8)
[2024-03-06 06:08] LABS: INR 1.24 (0.9-1.15); Partial Thromboplastin Time 33.1 SEC (24.5-34.5); Prothrombin Time 12.9 sec (9.3-11.8)
[2024-03-06 06:29] LABS: Alanine Aminotransferase 19 U/L (7-40); Albumin 3.9 g/dL (3.2-4.8); Alkaline Phosphatase 97 U/L (46-116); Anion Gap 7 (5-15); Aspartate Aminotransferase 16 U/L (13-40); BUN/Creatinine Ratio 35.8 (10.0-20.0); Blood Urea Nitrogen 29 mg/dL (9-23); Calcium 9.9 mg/dL (8.7-10.4); Carbon Dioxide 30 mmol/L (20-31); Chloride 113 mmol/L (98-107); Glucose 83 mg/dL (74-106); Potassium 3.4 mmol/L (3.5-5.1); Sodium 150 mmol/L (136-145)
[2024-03-06 06:30] LABS: Bilirubin, Total 0.8 mg/dL (0.2-1.0); Total Protein 6.4 g/dL (5.7-8.2)
[2024-03-06] MEDS: POTASSIUM CHL 20MEQ/100ML 100 ML IV ONE (07:01)
[2024-03-06] MEDS ORDERED: IPRATROPIUM BROM 0.5 MG/2.5ML INH SOL NEB PRN (09:45)
[2024-03-06] MEDS ORDERED: ALBUTEROL SULF 2.5 MG/0.5ML(0.5%) NEB SOLN NEB PRN (09:45)
--- NOTE | 2024-03-06 09:49 | ECG ---
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
[2024-03-06] MEDS: PANTOPRAZOLE 40 MG/10 ML VIAL INJ IV SCH (10:41)
[2024-03-06] MEDS: TAMSULOSIN HYDROCHLORIDE 0.4 MG CAP PO SCH (10:41)
[2024-03-06] MEDS: MEROPENEM 1GM IVPB 50 ML IV ONE (11:48)
[2024-03-06] MEDS ORDERED: cefTRIAXone 1GM/50ML D5W 50 ML IV SCH (12:00)
[2024-03-06] MEDS: ERGOCALCIFEROL 50,000 UNIT(1.25MG) CAP PO SCH (12:00)
[2024-03-06 13:28] LABS: Chloride 114 mmol/L (98-107); Potassium 3.7 mmol/L (3.5-5.1); Sodium 150 mmol/L (136-145)
[2024-03-06 13:29] LABS: Anion Gap 4 (5-15); Calcium 9.7 mg/dL (8.7-10.4); Carbon Dioxide 32 mmol/L (20-31)
[2024-03-06 13:34] LABS: BUN/Creatinine Ratio 29.1 (10.0-20.0); Blood Urea Nitrogen 23 mg/dL (9-23); Glucose 115 mg/dL (74-106)
[2024-03-06] MEDS ORDERED: MEROPENEM 1GM IVPB 50 ML IV SCH ×3 (14:00→18:00)
[2024-03-06] MEDS: D5W 5% 1,000 ML IV SCH (14:39)
[2024-03-06] MEDS: CALAMINE TOPical LOTION180 ML TOP PRN (18:07)
[2024-03-06] MEDS: MEROPENEM 1GM IVPB 50 ML IV SCH (18:07)
--- NOTE | 2024-03-06 18:19 | DVHPNRES ---
Progress Note Date Seen: Mar 06, 2024 Resident Creating Document: RANDY MARSHALL Has the PT tested + for MRSA If YES, has PT been informed?: No Medical Necessity Reason Pt with a Central, PICC or Fol: No Subjective Review of Systems AARON LOGAN is an 83-year-old male with a history of severe dementia, permanent atrial fibrillation, BPH, and gallstones who was brought from a care facility with altered level of consciousness and witnessed blood in the urine. The patient was also admitted on February 02, 2024, to [facility] due to metabolic encephalopathy secondary to septic shock and was found to have hematuria. He underwent cystoscopy with a biopsy and fulguration of a bladder neck lesion by urologist Dr. oNbles on 02/04/2024. The reports did not show malignancy. The patient was also evaluated by Neurology consult by Dr. Whitlock for severe dementia, who advised Haldol p.r.n. for agitation and confusion and also placed him on Zyprexa. He was discharged with a PICC line to receive IV antibiotics. At the time of discharge, due to severe dementia, the patient was alert, awake, and oriented x3 but not communicative. During this discharge, the patient could not communicate to provide a proper history. PMHx: Alzheimers, COPD, depression PSHx: Noncontributory Family history: Noncontributory Social history: Lives at a care facility Home medication: Hydroxyzine, loratadine, quetiapine, tamsulosin, trazodone, divalproex Allergic history: Lactulose intolerance On physical examination, the patient was aphasic, with scar tissue from a healed bedsore on his back. Lab studies were significant for raised sodium at 150, potassium at 3.4, creatinine kinase at 197, and urinalysis RBC at [id number]. Head CT scan showed chronic ischemic changes. Abdominopelvic CT scan showed a possible nonobstructing 2 mm left proximal ureteral calculus with a hypodense focus seen within the bladder, which could represent hemorrhage. Changes from previous H/P or p: No Changes Objective vital signs Vital Sign Date Time Temp Pulse Resp B/P (MAP) Pulse Ox O2 Delivery O2 Flow Rate FiO2 03/06/24 13:26 98.2 70 18 127/64 94 4.0 98.2 03/06/24 08:00 Nasal Cannula* 28 Total Intake and Output 03/05/24 03/05/24 03/06/24 15:00 23:00 07:00 Intake Total 250 ml Output Total 10 ml 125 ml Balance -10 ml 125 ml medications Current Medications Medications Dose Ordered Sig/Candice Route Start Time Stop Time Status Last Admin Dose Admin Sodium Chloride 10 ml Q8HR IV 03/05/24 22:00 03/06/24 14:25 10 ML Ondansetron HCl 4 mg Q4HP PRN IV 03/05/24 20:45 Acetaminophen 650 mg Q6HP PRN PO 03/05/24 20:45 Morphine Sulfate 2 mg Q4HPRN PRN IV 03/05/24 20:45 Nitroglycerin 0.4 mg Q5MINP PRN SL 03/05/24 20:45 Morphine Sulfate 2 mg Q30M PRN IV 03/05/24 20:45 Pantoprazole Sodium 40 mg DAILY IV 03/06/24 10:00 03/06/24 10:41 40 MG Divalproex Sodium 250 mg DAILY PO 03/06/24 10:00 03/06/24 10:41 250 MG Tamsulosin HCl 0.4 mg DAILY PO 03/06/24 10:00 03/06/24 10:41 0.4 MG Dextrose 1,000 ml @ 85 mls/hr [id number] IV 03/06/24 09:30 03/06/24 14:39 85 MLS/HR Ipratropium Ernest 0.5 mg Q4HPRN PRN NEB 03/06/24 09:45 Albuterol 2.5 mg Q4HPRN PRN NEB 03/06/24 09:45 Ergocalciferol 50,000 unit Q7D PO 03/06/24 12:00 Calamine 1 applic QIDP PRN TOP 03/06/24 15:30 Meropenem 50 ml @ 17 mls/hr Q8H IV 03/06/24 18:00 Examination General Appearance: An old male lying on the bed, alert but could not communicate. HEENT: Atraumatic, PERRLA, EOMI, Mucous membrane moist/pink Respiratory: Clear to auscultation, Normal air movement Cardiovascular: Regular rate, Normal S1, Normal S2, No murmurs, no chest wall tenderness Abdominal: Normal bowel sounds, Soft, No tenderness, No hepatospenomegaly, No masses Extremities: No clubbing, No cyanosis, No edema, Normal pulses, No tenderness/swelling Skin: There is a scar tissue on the back of the patient, remnant of healed bedsore laboratory and microbiology Laboratory Tests 03/06/24 13:00 03/06/24 05:12 Test 03/06/24 13:00 Range/Units Serum Glucose 115 H 74-106 mg/dL Labs and/or images reviewed: Labs reviewed by me, Image(s) reviewed by me Problem List/Assessment/Plan Problem List/Assessment/Plan Acute metabolic encephalopathy likely due to UTI/electrolyte imbalance Acute complicated UTI BPH Maryana hematuria Urinalysis shows maryana hematuria Urine culture Meropenem Tamsulosin Hypernatremia Sodium is raised at 1:[address] 5 at 85 mL/hour Check serum sodium every 6 hours Hypokalemia Supplement Hyperchloremia Monitor Rhabdomyolysis, likely due to immobility IV fluids Severe dementia Continue home medical Permanent atrial fibrillation Due to hematuria, could not give anticoagulant DVT prophylaxis SCD Diet Regular diet Code status Full code Case discussed with Dr. Hough Plan discussed with: Patient, Spouse (Alma Jimenez), Other (RN) My Orders My Orders Orders - RANDY MARSHALL Procedure Category Date Status Time * Swallow Request ST 03/06/24 Transmitted 11:43 Ergocalciferol PHA 03/06/24 In Process (Vitamin D 50,000 12:00 Meropenem 1gm Ivpb PHA 03/06/24 In Process (Merrem 1gm/ Ns) 18:00 Pureed DIET 03/06/24 Transmitted Dinner RANDY MARSHALL RESDIENT Mar 06, 2024 18:19
[2024-03-06] MEDS ORDERED: CIPROFLOXACIN 400MG/200ML 200 ML IV SCH (22:00)
[2024-03-07] VITALS (9 sets, daily range): BP systolic 118–149; BP diastolic 45–76; PULSE 68–94; RESP 16–18; TEMP 97.5–98.4; O2SAT 91–100
[2024-03-07 07:31] LABS: Alanine Aminotransferase 16 U/L (7-40); Alkaline Phosphatase 85 U/L (46-116); Anion Gap 7 (5-15); BUN/Creatinine Ratio 28.6 (10.0-20.0); Blood Urea Nitrogen 18 mg/dL (9-23); Calcium 9.3 mg/dL (8.7-10.4); Carbon Dioxide 28 mmol/L (20-31); Chloride 112 mmol/L (98-107); Glucose 113 mg/dL (74-106); Potassium 3.3 mmol/L (3.5-5.1); Sodium 147 mmol/L (136-145)
[2024-03-07 07:32] LABS: Albumin 3.5 g/dL (3.2-4.8); Aspartate Aminotransferase 16 U/L (13-40)
[2024-03-07 07:33] LABS: Bilirubin, Total 0.7 mg/dL (0.2-1.0); Total Protein 5.9 g/dL (5.7-8.2)
[2024-03-07 09:18] LABS: Basophils # (auto) 0 10 ^3/uL (0-0.2); Basophils % (auto) 0.4 % (0.0-2.0); Eosinophils # (auto) 0.3 10 ^3/uL (0-0.8); Eosinophils % (auto) 5.7 % (0.0-7.0); Hematocrit 38.4 % (41.0-53.0); Hemoglobin 12.6 g/dL (13.5-17.5); Lymphocytes # (auto) 1.3 10 ^3/uL (0.4-5.4); Lymphocytes % (auto) 22.3 % (10.0-50.0); Mean Corpuscular Hemoglobin 29.9 pg (28.0-32.0); Mean Corpuscular Hgb Conc. 32.9 g/dL (32.0-36.0); Mean Corpuscular Volume 90.9 fL (80.0-100.0); Monocytes # (auto) 0.4 10 ^3/uL (0-1.3); Neutrophils # (auto) 3.9 10 ^3/uL (1.6-8.6); Neutrophils % (auto) 64.6 % (37.0-80.0); Nucleated Red Blood Cells % 0.1 %; Platelet Count (auto) 224 10^3/uL (140-450); Red Blood Cells 4.22 10^6/uL (4.5-5.90); Red Cell Distribution Width 15.4 % (11.8-14.3)
[2024-03-07] MEDS ORDERED: POTASSIUM CHL 20MEQ/100ML 100 ML IV ONE (10:15)
[2024-03-07] MEDS: D5W 5% 1,000 ML IV SCH (10:51)
[2024-03-07] MEDS: POTASSIUM CHL 20MEQ/100ML 100 ML IV ONE (14:09)
--- NOTE | 2024-03-07 15:38 | DVHPNRES ---
Progress Note Date Seen: Mar 07, 2024 Resident Creating Document: RANDY MARSHALL JULIO CÉSAR Has the PT tested + for MRSA If YES, has PT been informed?: No Medical Necessity Reason Pt with a Central, PICC or Fol: No Subjective Review of Systems Mind at the bedside. Patient is confused and can not communicate. Patient reports: No new complaints Objective vital signs Vital Sign Date Time Temp Pulse Resp B/P (MAP) Pulse Ox O2 Delivery O2 Flow Rate FiO2 03/07/24 08:00 92 03/07/24 08:00 Nasal Cannula* 2 28 03/07/24 06:59 98 03/06/24 17:00 98.0 16 120/66 (84) 98.0 Total Intake and Output 03/06/24 03/06/24 03/07/24 15:00 23:00 07:00 Intake Total 200 ml 700 ml 220 ml Output Total 200 ml Balance 200 ml 500 ml 220 ml medications Current Medications Medications Dose Ordered Sig/Candice Route Start Time Stop Time Status Last Admin Dose Admin Sodium Chloride 10 ml Q8HR IV 03/05/24 22:00 03/07/24 14:09 10 ML Ondansetron HCl 4 mg Q4HP PRN IV 03/05/24 20:45 Acetaminophen 650 mg Q6HP PRN PO 03/05/24 20:45 Morphine Sulfate 2 mg Q4HPRN PRN IV 03/05/24 20:45 Nitroglycerin 0.4 mg Q5MINP PRN SL 03/05/24 20:45 Morphine Sulfate 2 mg Q30M PRN IV 03/05/24 20:45 Pantoprazole Sodium 40 mg DAILY IV 03/06/24 10:00 03/07/24 10:31 40 MG Divalproex Sodium 250 mg DAILY PO 03/06/24 10:00 03/07/24 10:25 250 MG Tamsulosin HCl 0.4 mg DAILY PO 03/06/24 10:00 03/07/24 10:28 0.4 MG Ipratropium [place] 0.5 mg Q4HPRN PRN NEB 03/06/24 09:45 Albuterol 2.5 mg Q4HPRN PRN NEB 03/06/24 09:45 Calamine 1 applic QIDP PRN TOP 03/06/24 15:30 03/06/24 18:07 1 APPLIC Meropenem 50 ml @ 17 mls/hr Q8H IV 03/06/24 18:00 03/07/24 10:53 17 MLS/HR Dextrose 1,000 ml @ 75 mls/hr [id number] IV 03/07/24 10:15 03/07/24 10:51 75 MLS/HR Potassium Bicarbonate 50 meq DAILY PO 03/08/24 10:00 Examination General Appearance: An old male lying on the bed, alert but could not communicate. HEENT: Atraumatic, PERRLA, EOMI, Mucous membrane moist/pink Respiratory: Clear to auscultation, Normal air movement Cardiovascular: Regular rate, Normal S1, Normal S2, No murmurs, no chest wall tenderness Abdominal: Normal bowel sounds, Soft, No tenderness, No hepatospenomegaly, No masses Extremities: No clubbing, No cyanosis, No edema, Normal pulses, No tenderness/swelling Skin: There is a scar tissue on the back of the patient, remnant of healed bedsore laboratory and microbiology Laboratory Tests 03/07/24 12:15 03/07/24 08:44 03/07/24 06:17 Test 03/07/24 06:17 Range/Units Serum Glucose 113 H 74-106 mg/dL Microbiology Date/Time Source Procedure Growth Status 03/06/24 09:20 Blood Blood Culture - Preliminary NO GROWTH AFTER 24 HOURS OF INCUBATION. Resulted 03/05/24 17:00 Voided Urine Urine Culture - Preliminary Resulted Labs and/or images reviewed: Labs reviewed by me, Image(s) reviewed by me Problem List/Assessment/Plan Problem List/Assessment/Plan Acute metabolic encephalopathy likely due to UTI/electrolyte imbalance Acute complicated UTI BPH Maryana hematuria Urinalysis shows maryana hematuria Urine culture, preliminary result after 24 hours shows no growth Blood culture results of the 24 hours shows no growth. Meropenem Tamsulosin Consulted Urology Hypernatremia Sodium is downtrending Continue DW 5 at 75 mL/hour Check serum sodium every 6 hours Hypokalemia Supplement Hyperchloremia Monitor Rhabdomyolysis, likely due to immobility IV fluids Severe dementia Continue home medical Permanent atrial fibrillation Due to hematuria, could not give anticoagulant DVT prophylaxis SCD Diet Regular diet Code status Full code Case discussed with Plan discussed with: Patient, Spouse, Other (RN) My Orders My Orders Orders - RANDY MARSHALL RESDIENT Procedure Category Date Status Time Meropenem 1gm Ivpb PHA 03/06/24 In Process (Merrem 1gm/ Ns) 18:00 Pureed DIET 03/06/24 Transmitted Dinner Sodium LAB 03/07/24 Logged 18:00 Sodium LAB 03/08/24 Verified 00:00 Sodium LAB 03/08/24 Verified 06:00 Sodium LAB 03/08/24 Verified 12:00 Sodium LAB 03/08/24 Verified 18:00 D5w 5% (Dextrose 5%) PHA 03/07/24 In Process 10:15 Potassium Effervesent PHA 03/08/24 In Process Tab (Klor-Con/Ef) 10:00 Date of Service: Mar 07, 2024 Billing Provider: ELEUTERIO MEJIA MD Common Visit Codes: [id number] INP/OBS CARE(HIGH) RANDY MARSHALL RESDIENT Mar 07, 2024 15:38 ELEUTERIO MEJIA MD Mar 08, 2024 10:30
[2024-03-08] VITALS (9 sets, daily range): BP systolic 128–147; BP diastolic 54–73; PULSE 61–95; RESP 16–18; TEMP 97.2–98.4; O2SAT 95–100
[2024-03-08 06:52] LABS: Basophils # (auto) 0 10 ^3/uL (0-0.2); Basophils % (auto) 0.3 % (0.0-2.0); Eosinophils # (auto) 0.3 10 ^3/uL (0-0.8); Eosinophils % (auto) 5.7 % (0.0-7.0); Hematocrit 35.3 % (41.0-53.0); Hemoglobin 11.8 g/dL (13.5-17.5); Lymphocytes # (auto) 1.4 10 ^3/uL (0.4-5.4); Mean Corpuscular Hemoglobin 29.9 pg (28.0-32.0); Mean Corpuscular Hgb Conc. 33.4 g/dL (32.0-36.0); Mean Corpuscular Volume 89.6 fL (80.0-100.0); Monocytes # (auto) 0.4 10 ^3/uL (0-1.3); Monocytes % (auto) 7.8 % (0.0-12.0); Neutrophils # (auto) 3.4 10 ^3/uL (1.6-8.6); Neutrophils % (auto) 61.2 % (37.0-80.0); Nucleated Red Blood Cells % 0.2 %; Platelet Count (auto) 205 10^3/uL (140-450); Red Blood Cells 3.94 10^6/uL (4.5-5.90); Red Cell Distribution Width 14.7 % (11.8-14.3); White Blood Cell 5.6 10^3/uL (4.4-10.8)
[2024-03-08 07:02] LABS: Chloride 107 mmol/L (98-107); Potassium 3.3 mmol/L (3.5-5.1); Sodium 142 mmol/L (136-145)
[2024-03-08 07:03] LABS: Anion Gap 5 (5-15); Calcium 9.2 mg/dL (8.7-10.4); Carbon Dioxide 30 mmol/L (20-31)
[2024-03-08 07:08] LABS: BUN/Creatinine Ratio 27.6 (10.0-20.0); Blood Urea Nitrogen 16 mg/dL (9-23); Glucose 96 mg/dL (74-106)
--- NOTE | 2024-03-08 09:37 | DVHINCON2 ---
Date of service: Mar 08, 2024 Referring Physician hospitalist Reason for Consultation hematuria History of Present Illness History Source: MD Notes Exam Limitations: Clinical condition HPI 83 yo male with PMH of Alzheimer's, COPD, depression from for [facility] care [facility] presented to the ED with the chief complaints of blood in urine noted by staff and altered. Patient is poor historian, unable to answer any question. Urine is now clear. family is bedside for visitation Past Medical History Alzheimer's, COPD, depression Past Surgical History Unable to obtain Family History Unable to obtain Past Social History [facility]. Review of Systems Review of Systems Unable to obtain due to patient clinical status Allergies: Coded Allergies: Lactose Intolerance (GI) (Verified Adverse Reaction, Mild, 02/08/24) Home Meds Reported Medications Tamsulosin Hcl (Flomax) 0.4 Mg Cap, 1 CAP PO DAILY, #30 CAP 11 Refills 02/03/24 Trazodone Hcl (Trazodone Hcl) 50 Mg Tab, 50 MG PO, TAB 10/27/23 Hydroxyzine HCl (Hydroxyzine Hydrochloride) 25 Mg Tab, 25 MG PO, TAB 10/27/23 Divalproex Sodium (Divalproex Sodium) 250 Mg Tab, 250 MG PO, TAB 10/27/23 Lorazepam (Lorazepam) 1 Mg Tab, 1 TAB PO TID, #90 TAB 10/27/23 Quetiapine Fumerate (Seroquel) 50 Mg Tab, 50 MG PO for 30 Days, MG 10/27/23 Ascorbic Acid (Gnp Vitamin C W/Tammy Hips) 1,000 Mg Tab, 1 PO DAILY 10/26/23 Acetaminophen (Acetaminophen) 325 Mg Tab, PO 10/26/23 Past Medical History Patient Family History: Hypertension H&P Exam Vital Signs Vital Signs Date Time Temp Pulse Resp B/P (MAP) Pulse Ox O2 Delivery O2 Flow Rate FiO2 03/08/24 05:00 97.3 61 16 128/68 (88) 99 97.3 03/07/24 22:39 Nasal Cannula* 2 28 Labs/Xrays [facility] [id number] [place] [id number] Ph: [phone] DIAGNOSTIC IMAGING Diagnostic Imaging Report : [id number] Signed PATIENT: AARON LOGAN ACCT: [id number] UNIT: [id number] : 1940 LOC: [facility] ROOM / BED: 0274T / B AGE / SEX: 83 / M ADM STATUS: ADM IN SERVICE 0522 ORDERING PHYSICIAN: ITZEL KEVIN RESIDENT PROCEDURE(s): ABPL - CT AB PEL WO CON-NO ORAL OR IV REASON: Hematuria,UTi complicated ORDER NUMBER(s): [id number], ACCESSION NUMBER(s): [id number] Exam: CT CT AB PEL WO CON-NO ORAL OR IV History: Hematuria,UTi complicated Comparison Study: None available at time of dictation. TECHNIQUE: Multidetector CT of the abdomen was performed from lung bases to pubic symphysis. Imaging was performed without IV contrast. Axial, coronal and sagittal multiplanar reformats were obtained from the axial data set by the technologist. Radiation Dose Information: CT Dose: CTDI volume is 25 mGy. Dose-length product is 250 mGy*cm FINDINGS: Evaluation of solid organs is limited due to lack of intravenous contrast use. Findings: Lung Bases: No acute or significant lung base finding. Normal heart size. No pleural or pericardial effusion. Liver: Hepatic steatosis. Gallbladder and Biliary Tree: Unremarkable Spleen: Unremarkable Pancreas: The pancreas is grossly normal in appearance. Adrenal Glands: Unremarkable Kidneys: Kidneys are grossly normal without calculi or hydronephrosis. Possible nonobstructing 2 mm left proximal ureteral calculus. This could represent punctate atherosclerotic calcification within the left renal artery alternatively. No hydronephrosis. Bladder: [place]ore catheter present within the bladder. Hypodense foci seen within the bladder, which could represent hemorrhage. Bowel: The stomach is grossly normal in appearance. Small bowel and colon are normal in caliber and distribution. The appendix is not visualized; however, no secondary findings of acute appendicitis identified. Ascites: Absent Lymphadenopathy: No mesenteric, retroperitoneal or periportal lymphadenopathy. Abdominal Wall and Mesentery: Unremarkable. Vasculature: The visualized abdominal aorta is normal in size and caliber. Evaluation of abdominal and pelvic vessels is limited due to lack of intravenous contrast. Pelvic Organs: Unremarkable Musculoskeletal: No aggressive focal bony lesions, acute fractures or disl ocation. Soft tissues: Unremarkable IMPRESSION: Possible nonobstructing 2 mm left proximal ureteral calculus. This could represent punctate atherosclerotic calcification within the left renal artery alternatively. No hydronephrosis. Kilgore catheter present within the bladder. Hypodense foci seen within the bladder, which could represent hemorrhage. Radiation optimization: All CT scans at this facility use at least one of these dose optimization techniques: automated exposure control mA and/or kV ad justment per patient size (includes targeted exams where dose is matched to clinical indication) or iterative reconstruction. ATED BY: PANFILO RUST MD DICTATED DATE/TIME: 03/06/24407 SIGNED BY: PANFILO RUST MD SIGNED DATE/TIME: 03/06/24407 CC: Labs Test 03/08/24 06:25 03/07/24 06:17 03/06/24 13:00 03/06/24 10:00 Range/Units White Blood Count 5.6 4.4-10.8 10^3/uL Red Blood Count 3.94 L 4.5-5.90 10^6/uL Hemoglobin 11.8 L 13.5-17.5 g/dL Hematocrit 35.3 L 41.0-53.0 % Mean Corpuscular Volume 89.6 80.0-100.0 fL Mean Corpuscular Hemoglobin 29.9 28.0-32.0 pg Mean Corpuscular Hemoglobin Concent 33.4 32.0-36.0 g/dL Red Cell Distribution Width 14.7 H 11.8-14.3 % Platelet Count 205 140-450 10^3/uL Mean Platelet Volume 9.4 6.9-10.8 fL Neutrophils (%) (Auto) 61.2 37.0-80.0 % Lymphocytes (%) (Auto) 25.0 10.0-50.0 % Monocytes (%) (Auto) 7.8 0.0-12.0 % Eosinophils (%) (Auto) 5.7 0.0-7.0 % Basophils (%) (Auto) 0.3 0.0-2.0 % Neutrophils # (Auto) 3.4 1.6-8.6 10 ^3/uL Lymphocytes # (Auto) 1.4 0.4-5.4 10 ^3/uL Monocytes # (Auto) 0.4 0-1.3 10 ^3/uL Eosinophils # (Auto) 0.3 0-0.8 10 ^3/uL Basophils # (Auto) 0 0-0.2 10 ^3/uL Nucleated Red Blood Cells 0.2 % Sodium Level 142 136-145 mmol/L Potassium Level 3.3 L 3.5-5.1 mmol/L Chloride Level 107 98-107 mmol/L Carbon Dioxide Level 30 20-31 mmol/L Anion Gap 5 5-15 Blood Urea Nitrogen 16 9-23 mg/dL Creatinine 0.58 L 0.700-1.30 mg/dL Glomerular Filtration Rate Calc 98 >90 mL/min BUN/Creatinine Ratio 27.6 H 10.0-20.0 Serum Glucose 96 74-106 mg/dL Calcium Level 9.2 8.7-10.4 mg/dL Total Bilirubin 0.7 0.2-1.0 mg/dL Aspartate Amino Transferase (AST) 16 13-40 U/L Alanine Aminotransferase (ALT) 16 7-40 U/L Alkaline Phosphatase 85 46-116 U/L Total Protein 5.9 5.7-8.2 g/dL Albumin 3.5 3.2-4.8 g/dL Magnesium Level 2.0 1.6-2.6 mg/dL Lactic Acid Level 1.0 0.4-2.0 mmol/L Test 03/06/24 05:12 03/06/24 01:08 03/05/24 23:12 03/05/24 17:00 Range/Units Prothrombin Time 12.9 H 9.3-11.8 sec Prothrombin Time INR 1.24 H 0.9-1.15 Activated Partial Thromboplast Time 33.1 24.5-34.5 SEC Blood Gas Specimen Type Arterial Blood Gas Sample Site Right brachial Blood Gas Patient Temperature 37.0 Arterial Blood Date Drawn [id number] Arterial Blood pH 7.462 H 7.350-7.450 Arterial Blood Partial Pressure CO2 38.2 35.0-48.0 mmHg Arterial Blood Partial Pressure O2 139.7 H 83.0-108.0 mmHg Arterial Blood HCO3 26.7 21.0-28.0 mmol/L Arterial Blood Oxygen Saturation 98.4 H 94.0-98.0 % Arterial Blood Base Excess 2.9 -2.0-3.0 mmol/L Arterial Blood Oxyhemoglobin 97.9 94.0-98.0 % Arterial Blood Carboxyhemoglobin 0.2 L 0.5-1.5 % Arterial Blood Methemoglobin 0.3 0.0-1.5 % Jimmy Test N/a Blood Gas Total Hemoglobin 13.50 13.5-17.5 g/dL Blood Gas Liter Flow 3.00 Blood Gas Modality Nasal cannula FiO2 % 32.0 Hemoglobin A1c 4.9 <5.7 % A1C Ammonia < 10 L 11-32 umol/L Creatine Kinase 197 H 46-171 U/L Vitamin B12 Level 1283 H 211-911 pg/mL Vitamin D 25-Hydroxy 42.9 30.0-100 ng/mL Thyroid Stimulating Hormone (TSH) 2.12 0.55-4.78 uIU/mL Urine Color Dark-red Yellow Urine Clarity Ex.turbid Clear Urine pH 6.0 5.0-9.0 Urine Specific [place] 1.030 1.001-1.035 Urine Protein 2+ H Negative Urine Ketones Negative Negative Urine Blood 3+ H Negative /uL Urine Nitrite Negative Negative Urine Bilirubin 1+ Negative Urine Urobilinogen Normal Negative mg/dL Urine Leukocyte Esterase Negative Negative /uL Urine RBC [id number] 0 - 3 /hpf Urine WBC 8212 0 - 3 /hpf Urine Squamous Epithelial Cells None seen <5 /hpf Urine Bacteria None seen None Seen /hpf Urine Glucose 3+ H Normal mg/dL Urine Opiates Screen Neg NEGATIVE Urine Fentanyl Screen Neg NEGATIVE Urine Barbiturates Screen Neg NEGATIVE Urine Phencyclidine Screen Neg NEGATIVE Urine Amphetamines Screen Neg NEGATIVE Urine Benzodiazepines Screen Neg NEGATIVE Urine Cocaine Screen Neg NEGATIVE Urine Cannabinoids Screen Neg NEGATIVE Test 03/05/24 15:26 Range/Units Troponin I High Sensitivity 13 </=54 ng/L Microbiology Date/Time Source Procedure Growth Status 03/06/24 09:20 Blood Blood Culture - Preliminary NO GROWTH AFTER 48 HOURS OF INCUBATION. Resulted 03/05/24 17:00 Voided Urine Urine Culture - Final Klebsiella pneumoniae - ESBL Complete Assessment/Plan Problem List: (1) Failure to thrive (2) Alzheimer disease (3) Lethargic (4) Dehydration with hypernatremia (5) Hypoglycemia (6) Bladder mass (7) Altered mental status (8) Hypernatremia (9) Metabolic encephalopathy Plan outpt cystoscopy TBA d/c home with kilgore Plan discussed with: HAILEY Collado NP Mar 08, 2024 09:37
[2024-03-08] MEDS ORDERED: POTASSIUM EFFERVESENT TAB 25 MEQ PO SCH (10:00)
[2024-03-08] MEDS: POTASSIUM EFFERVESENT TAB 25 MEQ PO ONE (10:39)
[2024-03-08] MEDS ORDERED: DEXTROSE (50%) 50ML SYRG IV PRN (15:30)
[2024-03-08] MEDS: InsuLIN REG 1unit/0.01ml Soln (100units/ml) SC SCH (18:00)
[2024-03-08] MEDS: ACCU-CHEK COMFORT CURVE STRIP VI SCH (18:13)
[2024-03-08] MEDS: VALPROIC ACID 250 MG/5 ML ORAL SOLN PO SCH (18:16)
[2024-03-08] MEDS: MEROPENEM 1GM IVPB 50 ML IV SCH (20:00)
--- NOTE | 2024-03-08 22:18 | DVHPNRES ---
Progress Note Date Seen: Mar 08, 2024 Resident Creating Document: KELSEA CONNELLY RESIDENT Has the PT tested + for MRSA If YES, has PT been informed?: No Medical Necessity Reason Pt with a Central, PICC or Fol: No Subjective Review of Systems Patient is confused and can not communicate. Objective vital signs Vital Sign Date Time Temp Pulse Resp B/P (MAP) Pulse Ox O2 Delivery O2 Flow Rate FiO2 03/08/24 21:00 98.1 70 17 137/58 (84) 96 98.1 03/08/24 18:53 Nasal Cannula* 2 28 Total Intake and Output 03/07/24 03/07/24 03/08/24 15:00 23:00 07:00 Intake Total 50 ml 1610 ml 550 ml Output Total 300 ml 150 ml Balance 50 ml 1310 ml 400 ml medications Current Medications Medications Dose Ordered Sig/Candice Route Start Time Stop Time Status Last Admin Dose Admin Sodium Chloride 10 ml Q8HR IV 03/05/24 22:00 03/08/24 13:36 10 ML Ondansetron HCl 4 mg Q4HP PRN IV 03/05/24 20:45 Acetaminophen 650 mg Q6HP PRN PO 03/05/24 20:45 Morphine Sulfate 2 mg Q4HPRN PRN IV 03/05/24 20:45 Nitroglycerin 0.4 mg Q5MINP PRN SL 03/05/24 20:45 Morphine Sulfate 2 mg Q30M PRN IV 03/05/24 20:45 Pantoprazole Sodium 40 mg DAILY IV 03/06/24 10:00 03/08/24 10:38 40 MG Tamsulosin HCl 0.4 mg DAILY PO 03/06/24 10:00 03/07/24 10:28 0.4 MG Ipratropium [place] 0.5 mg Q4HPRN PRN NEB 03/06/24 09:45 Albuterol 2.5 mg Q4HPRN PRN NEB 03/06/24 09:45 Calamine 1 applic QIDP PRN TOP 03/06/24 15:30 03/06/24 18:07 1 APPLIC Potassium Bicarbonate 50 meq DAILY PO 03/09/24 10:00 Diagnostic Test (Pha) 1 strip Q6HR 03/08/24 18:00 03/08/24 18:13 1 STRIP Insulin Human Regular Q6HR SC 03/08/24 18:00 Dextrose 50 ml UD PRN IV 03/08/24 15:30 Valproate Sodium 125 mg BID PO 03/08/24 15:30 03/08/24 18:16 125 MG Meropenem 50 ml @ 17 mls/hr Q8H IV 03/08/24 20:00 03/08/24 20:00 17 MLS/HR Examination General Appearance: An old male lying on the bed, alert but could not communicate. HEENT: Atraumatic, PERRLA, EOMI, Mucous membrane moist/pink Respiratory: Clear to auscultation, Normal air movement Cardiovascular: Regular rate, Normal S1, Normal S2, No murmurs, no chest wall tenderness Abdominal: Normal bowel sounds, Soft, No tenderness, No hepatospenomegaly, No masses Extremities: No clubbing, No cyanosis, No edema, Normal pulses, No tenderness/swelling Skin: There is a scar tissue on the back of the patient, remnant of healed bedsore laboratory and microbiology Laboratory Tests 03/08/24 18:01 03/08/24 06:25 Test 03/08/24 06:25 Range/Units Serum Glucose 96 74-106 mg/dL Microbiology Date/Time Source Procedure Growth Status 03/07/24 13:20 Nose MRSA Screen - Final Complete 03/06/24 09:20 Blood Blood Culture - Preliminary NO GROWTH AFTER 48 HOURS OF INCUBATION. Resulted 03/05/24 17:00 Voided Urine Urine Culture - Final Klebsiella pneumoniae - ESBL Complete Labs and/or images reviewed: Labs reviewed by me, Image(s) reviewed by me Problem List/Assessment/Plan Problem List/Assessment/Plan Acute metabolic encephalopathy likely due to UTI/electrolyte imbalance Acute complicated UTI BPH Maryana hematuria Urinalysis shows maryana hematuria Urine culture, shows Klebsiella UTI Blood culture results of the 24 hours shows no growth. Meropenem Tamsulosin Consulted Urology Hypernatremia Sodium is downtrending Check serum sodium Hypokalemia Supplement Hyperchloremia Monitor Rhabdomyolysis, likely due to immobility IV fluids Severe dementia Continue home medical Permanent atrial fibrillation Due to hematuria, could not give anticoagulant DVT prophylaxis SCD Diet Regular diet Code status Full code Case discussed with Plan discussed with: Other My Orders My Orders Orders - KELSEA CONNELLY RESIDENT Procedure Category Date Status Time Glucose Blood PHA 03/08/24 In Process (Accu-Chek Comfort 18:00 Insulin R (Human) PHA 03/08/24 In Process (Insulin R) 18:00 Dextrose 50% Syringe PHA 03/08/24 In Process 15:30 Valproic Acid Oral PHA 03/08/24 In Process Soln (Depakene Oral S 15:30 Date of Service: Mar 08, 2024 Billing Provider: ELEUTERIO MEJIA MD Common Visit Codes: [id number] INP/OBS CARE(HIGH) KELSEA CONNELLY RESIDENT Mar 08, 2024 22:18 ELEUTERIO MEJIA MD Mar 11, 2024 17:53
[2024-03-09] VITALS (11 sets, daily range): BP systolic 140–150; BP diastolic 63–80; PULSE 54–79; RESP 16–18; TEMP 97.7–98.1; O2SAT 96–100
[2024-03-09 06:40] LABS: Anion Gap 4 (5-15); Basophils # (auto) 0 10 ^3/uL (0-0.2); Basophils % (auto) 0.2 % (0.0-2.0); Carbon Dioxide 31 mmol/L (20-31); Chloride 105 mmol/L (98-107); Eosinophils # (auto) 0.2 10 ^3/uL (0-0.8); Eosinophils % (auto) 5.7 % (0.0-7.0); Hematocrit 32.7 % (41.0-53.0); Hemoglobin 11.3 g/dL (13.5-17.5); Lymphocytes # (auto) 1.4 10 ^3/uL (0.4-5.4); Lymphocytes % (auto) 31.5 % (10.0-50.0); Mean Corpuscular Hemoglobin 30.7 pg (28.0-32.0); Mean Corpuscular Hgb Conc. 34.7 g/dL (32.0-36.0); Mean Corpuscular Volume 88.5 fL (80.0-100.0); Monocytes # (auto) 0.3 10 ^3/uL (0-1.3); Monocytes % (auto) 7.1 % (0.0-12.0); Neutrophils # (auto) 2.4 10 ^3/uL (1.6-8.6); Neutrophils % (auto) 55.5 % (37.0-80.0); Platelet Count (auto) 210 10^3/uL (140-450); Potassium 3.7 mmol/L (3.5-5.1); Red Blood Cells 3.69 10^6/uL (4.5-5.90); Red Cell Distribution Width 14.3 % (11.8-14.3); Sodium 140 mmol/L (136-145); White Blood Cell 4.3 10^3/uL (4.4-10.8)
[2024-03-09 06:41] LABS: Calcium 9.4 mg/dL (8.7-10.4)
[2024-03-09 06:46] LABS: BUN/Creatinine Ratio 24.6 (10.0-20.0); Blood Urea Nitrogen 14 mg/dL (9-23); Glucose 83 mg/dL (74-106)
[2024-03-09 06:47] LABS: Magnesium 1.7 mg/dL (1.6-2.6)
[2024-03-09] MEDS: POTASSIUM EFFERVESENT TAB 25 MEQ PO SCH (09:50)
--- NOTE | 2024-03-09 18:15 | DVHPNRES ---
Progress Note Date Seen: Mar 09, 2024 Resident Creating Document: RANDY MARSHALL JULIO CÉSAR Has the PT tested + for MRSA If YES, has PT been informed?: No Medical Necessity Reason Pt with a Central, PICC or Fol: No Subjective Review of Systems Patient seen and examined at the bedside. Patient is still confused and could not communicate. Patient reports: No new complaints Changes from previous H/P or p: No Changes Objective vital signs Vital Sign Date Time Temp Pulse Resp B/P (MAP) Pulse Ox O2 Delivery O2 Flow Rate FiO2 03/09/24 16:57 97.7 67 17 147/63 (91) 98 97.7 03/09/24 12:25 2.0 28 03/09/24 08:25 Nasal Cannula Total Intake and Output 03/08/24 03/08/24 03/09/24 15:00 23:00 07:00 Intake Total 1717 ml 700 ml 50 ml Output Total 500 ml Balance 1717 ml 200 ml 50 ml medications Current Medications Medications Dose Ordered Sig/Candice Route Start Time Stop Time Status Last Admin Dose Admin Sodium Chloride 10 ml Q8HR IV 03/05/24 22:00 03/09/24 14:17 10 ML Ondansetron HCl 4 mg Q4HP PRN IV 03/05/24 20:45 Acetaminophen 650 mg Q6HP PRN PO 03/05/24 20:45 Morphine Sulfate 2 mg Q4HPRN PRN IV 03/05/24 20:45 Nitroglycerin 0.4 mg Q5MINP PRN SL 03/05/24 20:45 Morphine Sulfate 2 mg Q30M PRN IV 03/05/24 20:45 Pantoprazole Sodium 40 mg DAILY IV 03/06/24 10:00 03/09/24 09:49 40 MG Tamsulosin HCl 0.4 mg DAILY PO 03/06/24 10:00 03/09/24 09:50 0.4 MG Ipratropium [place] 0.5 mg Q4HPRN PRN NEB 03/06/24 09:45 Cancel Albuterol 2.5 mg Q4HPRN PRN NEB 03/06/24 09:45 Calamine 1 applic QIDP PRN TOP 03/06/24 15:30 03/06/24 18:07 1 APPLIC Potassium Bicarbonate 50 meq DAILY PO 03/09/24 10:00 03/09/24 09:50 50 MEQ Diagnostic Test (Pha) 1 strip Q6HR 03/08/24 18:00 03/09/24 17:52 1 STRIP Insulin Human Regular Q6HR SC 03/08/24 18:00 03/09/24 00:05 2 UNITS Dextrose 50 ml UD PRN IV 03/08/24 15:30 Valproate Sodium 125 mg BID PO 03/08/24 15:30 03/09/24 09:49 125 MG Examination General Appearance: An old male lying on the bed, alert but could not communicate. HEENT: Atraumatic, PERRLA, EOMI, Mucous membrane moist/pink Respiratory: Clear to auscultation, Normal air movement Cardiovascular: Regular rate, Normal S1, Normal S2, No murmurs, no chest wall tenderness Abdominal: Normal bowel sounds, Soft, No tenderness, No hepatospenomegaly, No masses Extremities: No clubbing, No cyanosis, No edema, Normal pulses, No tenderness/swelling Skin: There is a scar tissue on the back of the patient, remnant of healed bedsore laboratory and microbiology Laboratory Tests 03/09/24 05:40 Test 03/09/24 05:40 Range/Units Serum Glucose 83 74-106 mg/dL Microbiology Date/Time Source Procedure Growth Status 03/07/24 13:20 Nose MRSA Screen - Final Complete 03/06/24 09:20 Blood Blood Culture - Preliminary NO GROWTH AFTER 72 HOURS OF INCUBATION. Resulted 03/05/24 17:00 Voided Urine Urine Culture - Final Klebsiella pneumoniae - ESBL Complete Labs and/or images reviewed: Labs reviewed by me, Image(s) reviewed by me Problem List/Assessment/Plan Problem List/Assessment/Plan Acute metabolic encephalopathy likely due to UTI/electrolyte imbalance Acute complicated UTI BPH Maryana hematuria Urinalysis shows maryana hematuria Urine culture, shows Klebsiella pneumoniae, ESBL Blood culture results of the 72 hours shows no growth. Discontinue Meropenem Start ertapenem Continue Tamsulosin Consulted Urology, recommended outpatient basis follow up and for cystoscopy MRSA screening negative Hypernatremia Sodium is normalized Monitoring Hypokalemia Supplement Hyperchloremia Monitor Questionable Rhabdomyolysis, likely due to immobility IV fluids Severe dementia Continue home medical Permanent atrial fibrillation Due to hematuria, could not give anticoagulant DVT prophylaxis SCD Diet Regular diet Code status Full code As the urine culture shows Klebsiella pneumoniae ESBL, the patient is planned to discharge to SNF (as [facility] previous facility, [facility] could not provide IV antibiotic) for IV antibiotic ertapenem 1 g daily for 14 days, elementary school social worker on the board for providing the place. Case discussed with Plan discussed with: Patient, Daughter (Nandini SAMPSON) via phone) My Orders My Orders Orders - RANDY MARSHALL RESDIENT Procedure Category Date Status Time * Vp Transportation CONS 03/09/24 Transmitted Consult 14:54 Discharge DISCHARGE 03/09/24 Transmitted 15:15 Ertapenem Sod Inj PHA 03/10/24 In Process (Invanz) 10:00 RANDY MARSHALL RESDIENT Mar 09, 2024 18:15
[2024-03-10] VITALS (11 sets, daily range): BP systolic 113–156; BP diastolic 62–75; PULSE 52–80; RESP 16–18; TEMP 98–99; O2SAT 96–100
[2024-03-10 10:45] LABS: Basophils # (auto) 0 10 ^3/uL (0-0.2); Basophils % (auto) 0.1 % (0.0-2.0); Eosinophils # (auto) 0.3 10 ^3/uL (0-0.8); Hematocrit 39.3 % (41.0-53.0); Hemoglobin 13.4 g/dL (13.5-17.5); Lymphocytes # (auto) 1.2 10 ^3/uL (0.4-5.4); Lymphocytes % (auto) 24.4 % (10.0-50.0); Mean Corpuscular Hemoglobin 30.2 pg (28.0-32.0); Mean Corpuscular Hgb Conc. 34.1 g/dL (32.0-36.0); Mean Corpuscular Volume 88.6 fL (80.0-100.0); Monocytes # (auto) 0.3 10 ^3/uL (0-1.3); Monocytes % (auto) 6.5 % (0.0-12.0); Nucleated Red Blood Cells % 0.3 %; Platelet Count (auto) 244 10^3/uL (140-450); Red Blood Cells 4.44 10^6/uL (4.5-5.90); Red Cell Distribution Width 14.4 % (11.8-14.3); White Blood Cell 4.8 10^3/uL (4.4-10.8)
[2024-03-10] MEDS: ERTAPENEM SOD INJ 1 GM in SODIUM CHL 0.9% 50 ML IV ONE (10:57)
--- NOTE | 2024-03-10 16:36 | DVHPNRES ---
Progress Note Date Seen: Mar 10, 2024 Resident Creating Document: RANDY MARSHALL JULIO CÉSAR Has the PT tested + for MRSA If YES, has PT been informed?: No Medical Necessity Reason Pt with a Central, PICC or Fol: No Subjective Review of Systems Patient seen and examined at the bedside. Patient is still confused and could not communicate. Patient reports: No new complaints Changes from previous H/P or p: No Changes Objective vital signs Vital Sign Date Time Temp Pulse Resp B/P (MAP) Pulse Ox O2 Delivery O2 Flow Rate FiO2 03/10/24 13:00 98.0 71 16 156/71 (99) 99 98.0 03/10/24 09:14 Room Air 03/10/24 09:14 0 21 Total Intake and Output 03/09/24 03/09/24 03/10/24 15:00 23:00 07:00 Intake Total 240 ml 900 ml 122 ml Output Total 650 ml 150 ml Balance 240 ml 250 ml -28 ml medications Current Medications Medications Dose Ordered Sig/Candice Route Start Time Stop Time Status Last Admin Dose Admin Sodium Chloride 10 ml Q8HR IV 03/05/24 22:00 03/10/24 14:02 10 ML Ondansetron HCl 4 mg Q4HP PRN IV 03/05/24 20:45 Acetaminophen 650 mg Q6HP PRN PO 03/05/24 20:45 Morphine Sulfate 2 mg Q4HPRN PRN IV 03/05/24 20:45 Nitroglycerin 0.4 mg Q5MINP PRN SL 03/05/24 20:45 Morphine Sulfate 2 mg Q30M PRN IV 03/05/24 20:45 Pantoprazole Sodium 40 mg DAILY IV 03/06/24 10:00 03/10/24 09:38 40 MG Tamsulosin HCl 0.4 mg DAILY PO 03/06/24 10:00 03/10/24 09:37 0.4 MG Ipratropium [place] 0.5 mg Q4HPRN PRN NEB 03/06/24 09:45 Cancel Albuterol 2.5 mg Q4HPRN PRN NEB 03/06/24 09:45 Calamine 1 applic QIDP PRN TOP 03/06/24 15:30 03/06/24 18:07 1 APPLIC Potassium Bicarbonate 50 meq DAILY PO 03/09/24 10:00 03/10/24 09:37 50 MEQ Diagnostic Test (Pha) 1 strip Q6HR 03/08/24 18:00 03/10/24 12:00 1 STRIP Insulin Human Regular Q6HR SC 03/08/24 18:00 03/09/24 00:05 2 UNITS Dextrose 50 ml UD PRN IV 03/08/24 15:30 Valproate Sodium 125 mg BID PO 03/08/24 15:30 03/10/24 09:38 125 MG Ertapenem 1 gm/ Sodium Chloride 50 ml @ 100 mls/hr DAILY IV 03/11/24 10:00 Examination General Appearance: An old male lying on the bed, alert but could not communicate. HEENT: Atraumatic, PERRLA, EOMI, Mucous membrane moist/pink Respiratory: Clear to auscultation, Normal air movement Cardiovascular: Regular rate, Normal S1, Normal S2, No murmurs, no chest wall tenderness Abdominal: Normal bowel sounds, Soft, No tenderness, No hepatospenomegaly, No masses Extremities: No clubbing, No cyanosis, No edema, Normal pulses, No tenderness/swelling Skin: There is a scar tissue on the back of the patient, remnant of healed bedsore laboratory and microbiology Laboratory Tests 03/10/24 10:24 03/09/24 05:40 Test 03/09/24 05:40 Range/Units Serum Glucose 83 74-106 mg/dL Microbiology Date/Time Source Procedure Growth Status 03/07/24 13:20 Nose MRSA Screen - Final Complete 03/06/24 09:20 Blood Blood Culture - Preliminary NO GROWTH AFTER 72 HOURS OF INCUBATION. Resulted 03/05/24 17:00 Voided Urine Urine Culture - Final Klebsiella pneumoniae - ESBL Complete Labs and/or images reviewed: Labs reviewed by me, Image(s) reviewed by me Problem List/Assessment/Plan Problem List/Assessment/Plan Acute metabolic encephalopathy likely due to UTI/electrolyte imbalance Acute complicated UTI BPH Maryana hematuria Urinalysis shows maryana hematuria Urine culture, shows Klebsiella pneumoniae, ESBL Blood culture results of the 72 hours shows no growth. Discontinue Meropenem Start ertapenem Continue Tamsulosin Consulted Urology, recommended outpatient basis follow up and for cystoscopy MRSA screening negative Hypernatremia Sodium is normalized Monitoring Hypokalemia Supplement Hyperchloremia Monitor Questionable Rhabdomyolysis, likely due to immobility IV fluids Severe dementia Continue home medical Permanent atrial fibrillation Due to hematuria, could not give anticoagulant DVT prophylaxis SCD Diet Regular diet Code status Full code As the urine culture shows Klebsiella pneumoniae ESBL, the patient is planned to discharge to SNF (as his previous facility, [facility] could not provide IV antibiotic) for IV antibiotic ertapenem 1 g daily for 14 days, social science manager on the board for providing the place still waiting for the SNF authorization. Case discussed with Plan discussed with: Patient, Other (RN) My Orders My Orders Orders - RANDY MARSHALL RESDIMICHAEL Procedure Category Date Status Time Discontinue Tele FRANKO 03/10/24 In Process 14:13 Transfer Orders XFER 03/10/24 Transmitted 14:13 Date of Service: Mar 10, 2024 Billing Provider: VARSHA MAYERS MD Common Visit Codes: [id number] INP/OBS CARE(HIGH) RANDY MARSHALL RESDIENT Mar 10, 2024 16:36 VARSHA MAYERS MD Mar 11, 2024 09:54
[2024-03-11] VITALS (10 sets, daily range): BP systolic 108–159; BP diastolic 60–71; PULSE 62–98; RESP 16–18; TEMP 97.5–98.6; O2SAT 93–98
[2024-03-11 06:28] LABS: Basophils # (auto) 0 10 ^3/uL (0-0.2); Basophils % (auto) 0.2 % (0.0-2.0); Eosinophils # (auto) 0.3 10 ^3/uL (0-0.8); Eosinophils % (auto) 4.9 % (0.0-7.0); Hematocrit 36.8 % (41.0-53.0); Hemoglobin 12.6 g/dL (13.5-17.5); Lymphocytes # (auto) 1.6 10 ^3/uL (0.4-5.4); Lymphocytes % (auto) 27.9 % (10.0-50.0); Mean Corpuscular Hemoglobin 30.2 pg (28.0-32.0); Mean Corpuscular Hgb Conc. 34.3 g/dL (32.0-36.0); Mean Corpuscular Volume 87.9 fL (80.0-100.0); Monocytes # (auto) 0.5 10 ^3/uL (0-1.3); Monocytes % (auto) 8.5 % (0.0-12.0); Neutrophils # (auto) 3.3 10 ^3/uL (1.6-8.6); Neutrophils % (auto) 58.5 % (37.0-80.0); Nucleated Red Blood Cells % 0.1 %; Platelet Count (auto) 274 10^3/uL (140-450); Red Blood Cells 4.19 10^6/uL (4.5-5.90); Red Cell Distribution Width 14.4 % (11.8-14.3); White Blood Cell 5.6 10^3/uL (4.4-10.8)
[2024-03-11] MEDS: ERTAPENEM SOD INJ 1 GM in SODIUM CHL 0.9% 50 ML IV SCH (10:16)
--- NOTE | 2024-03-11 18:54 | DVHPNRES ---
Progress Note Date Seen: Mar 11, 2024 Resident Creating Document: RANDY MARSHALL JULIO CÉSAR Has the PT tested + for MRSA If YES, has PT been informed?: No Medical Necessity Reason Pt with a Central, PICC or Fol: No Subjective Review of Systems Patient seen and examined at the bedside. Patient is still confused and could not communicate. Patient reports: No new complaints Changes from previous H/P or p: No Changes Objective vital signs Vital Sign Date Time Temp Pulse Resp B/P (MAP) Pulse Ox O2 Delivery O2 Flow Rate FiO2 03/11/24 17:00 97.6 77 18 112/65 (81) 94 97.6 03/11/24 07:57 Room Air* 0 21 Total Intake and Output 03/10/24 03/10/24 03/11/24 15:00 23:00 07:00 Intake Total 550 ml 1755 ml 1600 ml Output Total 1050 ml 1200 ml Balance 550 ml 705 ml 400 ml medications Current Medications Medications Dose Ordered Sig/Candice Route Start Time Stop Time Status Last Admin Dose Admin Sodium Chloride 10 ml Q8HR IV 03/05/24 22:00 03/11/24 14:14 10 ML Ondansetron HCl 4 mg Q4HP PRN IV 03/05/24 20:45 Acetaminophen 650 mg Q6HP PRN PO 03/05/24 20:45 Morphine Sulfate 2 mg Q4HPRN PRN IV 03/05/24 20:45 Nitroglycerin 0.4 mg Q5MINP PRN SL 03/05/24 20:45 Morphine Sulfate 2 mg Q30M PRN IV 03/05/24 20:45 Pantoprazole Sodium 40 mg DAILY IV 03/06/24 10:00 03/11/24 10:09 40 MG Tamsulosin HCl 0.4 mg DAILY PO 03/06/24 10:00 03/11/24 10:09 0.4 MG Ipratropium [place] 0.5 mg Q4HPRN PRN NEB 03/06/24 09:45 Cancel Albuterol 2.5 mg Q4HPRN PRN NEB 03/06/24 09:45 Calamine 1 applic QIDP PRN TOP 03/06/24 15:30 03/06/24 18:07 1 APPLIC Potassium Bicarbonate 50 meq DAILY PO 03/09/24 10:00 03/11/24 10:09 50 MEQ Diagnostic Test (Pha) 1 strip Q6HR 03/08/24 18:00 03/11/24 17:43 1 STRIP Insulin Human Regular Q6HR SC 03/08/24 18:00 03/09/24 00:05 2 UNITS Dextrose 50 ml UD PRN IV 03/08/24 15:30 Valproate Sodium 125 mg BID PO 03/08/24 15:30 03/11/24 10:08 125 MG Ertapenem 1 gm/ Sodium Chloride 50 ml @ 100 mls/hr DAILY IV 03/11/24 10:00 03/11/24 10:16 100 MLS/HR Examination General Appearance: An old male lying on the bed, alert but could not communicate. HEENT: Atraumatic, PERRLA, EOMI, Mucous membrane moist/pink Respiratory: Clear to auscultation, Normal air movement Cardiovascular: Regular rate, Normal S1, Normal S2, No murmurs, no chest wall tenderness Abdominal: Normal bowel sounds, Soft, No tenderness, No hepatospenomegaly, No masses Extremities: No clubbing, No cyanosis, No edema, Normal pulses, No tenderness/swelling Skin: There is a scar tissue on the back of the patient, remnant of healed bedsore laboratory and microbiology Laboratory Tests 03/11/24 06:07 03/09/24 05:40 Test 03/09/24 05:40 Range/Units Serum Glucose 83 74-106 mg/dL Microbiology Date/Time Source Procedure Growth Status 03/07/24 13:20 Nose MRSA Screen - Final Complete 03/06/24 09:20 Blood Blood Culture - Final NO GROWTH AFTER 5 DAYS OF INCUBATION. Complete 03/05/24 17:00 Voided Urine Urine Culture - Final Klebsiella pneumoniae - ESBL Complete Labs and/or images reviewed: Labs reviewed by me, Image(s) reviewed by me Problem List/Assessment/Plan Problem List/Assessment/Plan Acute metabolic encephalopathy likely due to UTI/electrolyte imbalance Acute complicated UTI BPH Maryana hematuria Urinalysis shows maryana hematuria Urine culture, shows Klebsiella pneumoniae, ESBL Blood culture results of the 72 hours shows no growth. Discontinue Meropenem Start ertapenem Continue Tamsulosin Consulted Urology, recommended outpatient basis follow up and for cystoscopy MRSA screening negative Hypernatremia Sodium is normalized Monitoring Hypokalemia Supplement Hyperchloremia Monitor Questionable Rhabdomyolysis, likely due to immobility IV fluids Severe dementia Continue home medical Permanent atrial fibrillation Due to hematuria, could not give anticoagulant DVT prophylaxis SCD Diet Regular diet Code status Full code As the urine culture shows Klebsiella pneumoniae ESBL, the patient is planned to discharge to SNF (as his previous facility, [facility] could not provide IV antibiotic) for IV antibiotic ertapenem 1 g daily for 14 days, delinquency prevention social worker on the board for providing the place still waiting for the SNF authorization. Case discussed with Plan discussed with: Patient, Daughter, Other (RN) Date of Service: Mar 11, 2024 Billing Provider: VARSHA MAYERS MD Common Visit Codes: [id number] INP/OBS CARE(HIGH) RANDY MARSHALL RESDIMICHAEL Mar 11, 2024 18:54 VARSHA MAYERS MD Mar 12, 2024 19:03
[2024-03-12] VITALS (10 sets, daily range): BP systolic 112–122; BP diastolic 7–78; PULSE 70–85; RESP 14–20; TEMP 97.8–98.8; O2SAT 93–98
[2024-03-12 05:42] LABS: Basophils # (auto) 0 10 ^3/uL (0-0.2); Basophils % (auto) 0.1 % (0.0-2.0); Eosinophils # (auto) 0.3 10 ^3/uL (0-0.8); Eosinophils % (auto) 3.2 % (0.0-7.0); Hematocrit 37.3 % (41.0-53.0); Hemoglobin 12.4 g/dL (13.5-17.5); Lymphocytes # (auto) 1.4 10 ^3/uL (0.4-5.4); Lymphocytes % (auto) 15.6 % (10.0-50.0); Mean Corpuscular Hemoglobin 29.4 pg (28.0-32.0); Mean Corpuscular Hgb Conc. 33.2 g/dL (32.0-36.0); Mean Corpuscular Volume 88.7 fL (80.0-100.0); Monocytes # (auto) 0.7 10 ^3/uL (0-1.3); Monocytes % (auto) 7.8 % (0.0-12.0); Neutrophils # (auto) 6.6 10 ^3/uL (1.6-8.6); Neutrophils % (auto) 73.3 % (37.0-80.0); Platelet Count (auto) 293 10^3/uL (140-450); Red Blood Cells 4.21 10^6/uL (4.5-5.90); Red Cell Distribution Width 14.4 % (11.8-14.3)
--- NOTE | 2024-03-12 18:37 | DVHPNRES ---
Progress Note Date Seen: Mar 12, 2024 Resident Creating Document: RANDY MARSHALL JULIO CÉSAR Has the PT tested + for MRSA If YES, has PT been informed?: No Medical Necessity Reason Pt with a Central, PICC or Fol: No Subjective Review of Systems Patient seen and examined at the bedside. Patient is still confused and could not communicate. Patient reports: No new complaints Objective vital signs Vital Sign Date Time Temp Pulse Resp B/P (MAP) Pulse Ox O2 Delivery O2 Flow Rate FiO2 03/12/24 16:34 97.8 70 14 115/70 (85) 94 97.8 03/12/24 12:15 0.0 21 03/12/24 08:00 Room Air* Total Intake and Output 03/11/24 03/11/24 03/12/24 15:00 23:00 07:00 Intake Total 1000 ml 360 ml 540 ml Output Total 1050 ml 450 ml Balance -50 ml 360 ml 90 ml medications Current Medications Medications Dose Ordered Sig/Candice Route Start Time Stop Time Status Last Admin Dose Admin Sodium Chloride 10 ml Q8HR IV 03/05/24 22:00 03/12/24 14:00 10 ML Ondansetron HCl 4 mg Q4HP PRN IV 03/05/24 20:45 Acetaminophen 650 mg Q6HP PRN PO 03/05/24 20:45 Morphine Sulfate 2 mg Q4HPRN PRN IV 03/05/24 20:45 Nitroglycerin 0.4 mg Q5MINP PRN SL 03/05/24 20:45 Morphine Sulfate 2 mg Q30M PRN IV 03/05/24 20:45 Pantoprazole Sodium 40 mg DAILY IV 03/06/24 10:00 03/12/24 10:46 40 MG Tamsulosin HCl 0.4 mg DAILY PO 03/06/24 10:00 03/12/24 10:45 0.4 MG Ipratropium [place] 0.5 mg Q4HPRN PRN NEB 03/06/24 09:45 Cancel Albuterol 2.5 mg Q4HPRN PRN NEB 03/06/24 09:45 Calamine 1 applic QIDP PRN TOP 03/06/24 15:30 03/06/24 18:07 1 APPLIC Potassium Bicarbonate 50 meq DAILY PO 03/09/24 10:00 03/12/24 10:45 50 MEQ Diagnostic Test (Pha) 1 strip Q6HR 03/08/24 18:00 03/12/24 17:59 1 STRIP Insulin Human Regular Q6HR SC 03/08/24 18:00 03/12/24 12:20 2 UNITS Dextrose 50 ml UD PRN IV 03/08/24 15:30 Valproate Sodium 125 mg BID PO 03/08/24 15:30 03/12/24 10:45 125 MG Ertapenem 1 gm/ Sodium Chloride 50 ml @ 100 mls/hr DAILY IV 03/11/24 10:00 03/12/24 10:45 100 MLS/HR Examination General Appearance: An old male lying on the bed, alert but could not communicate. HEENT: Atraumatic, PERRLA, EOMI, Mucous membrane moist/pink Respiratory: Clear to auscultation, Normal air movement Cardiovascular: Regular rate, Normal S1, Normal S2, No murmurs, no chest wall tenderness Abdominal: Normal bowel sounds, Soft, No tenderness, No hepatospenomegaly, No masses Extremities: No clubbing, No cyanosis, No edema, Normal pulses, No tenderness/swelling Skin: There is a scar tissue on the back of the patient, remnant of healed bedsore laboratory and microbiology Laboratory Tests 03/12/24 04:59 03/09/24 05:40 Test 03/09/24 05:40 Range/Units Serum Glucose 83 74-106 mg/dL Microbiology Date/Time Source Procedure Growth Status 03/07/24 13:20 Nose MRSA Screen - Final Complete 03/06/24 09:20 Blood Blood Culture - Final NO GROWTH AFTER 5 DAYS OF INCUBATION. Complete 03/05/24 17:00 Voided Urine Urine Culture - Final Klebsiella pneumoniae - ESBL Complete Labs and/or images reviewed: Labs reviewed by me, Image(s) reviewed by me Problem List/Assessment/Plan Problem List/Assessment/Plan Acute metabolic encephalopathy likely due to UTI/electrolyte imbalance Acute complicated UTI BPH Maryana hematuria Urinalysis shows maryana hematuria Urine culture, shows Klebsiella pneumoniae, ESBL Blood culture results of the 72 hours shows no growth. Discontinue Meropenem Start ertapenem Continue Tamsulosin Consulted Urology, recommended outpatient basis follow up and for cystoscopy MRSA screening negative Hypernatremia Sodium is normalized Monitoring Hypokalemia Supplement Hyperchloremia Monitor Questionable Rhabdomyolysis, likely due to immobility IV fluids Severe dementia Continue home medical Permanent atrial fibrillation Due to hematuria, could not give anticoagulant DVT prophylaxis SCD Diet Regular diet Code status Full code As the urine culture shows Klebsiella pneumoniae ESBL, the patient is planned to discharge to SNF (as his previous facility, [facility] could not provide IV antibiotic) for IV antibiotic ertapenem 1 g daily for 14 days, social worker on the board for providing the place still waiting for the SNF authorization. Case discussed with Plan discussed with: Patient, Daughter, Other (RN) Date of Service: Mar 12, 2024 Billing Provider: VARSHA MAYERS MD Common Visit Codes: [id number] INP/OBS CARE(HIGH) RANDY MARSHALL RESDIMICHAEL Mar 12, 2024 18:37 VARSHA MAYERS MD Mar 12, 2024 19:16
[2024-03-13] VITALS (8 sets, daily range): BP systolic 93–149; BP diastolic 58–94; PULSE 70–88; RESP 16–20; TEMP 97.6–99; O2SAT 94–97
[2024-03-13 04:14] LABS: Rapid Influenza A Negative (Negative); Rapid Influenza B Negative (Negative)
[2024-03-13 04:35] LABS: COVID19 ANTIGEN SOFIA FIA NEGATIVE (NEGATIVE)
[2024-03-13 06:25] LABS: Basophils # (auto) 0 10 ^3/uL (0-0.2); Basophils % (auto) 0.1 % (0.0-2.0); Eosinophils # (auto) 0.3 10 ^3/uL (0-0.8); Eosinophils % (auto) 2.1 % (0.0-7.0); Hematocrit 39.4 % (41.0-53.0); Hemoglobin 13.2 g/dL (13.5-17.5); Lymphocytes # (auto) 1.6 10 ^3/uL (0.4-5.4); Mean Corpuscular Hemoglobin 29.8 pg (28.0-32.0); Mean Corpuscular Hgb Conc. 33.4 g/dL (32.0-36.0); Mean Corpuscular Volume 89.2 fL (80.0-100.0); Monocytes % (auto) 7.1 % (0.0-12.0); Neutrophils # (auto) 11.5 10 ^3/uL (1.6-8.6); Neutrophils % (auto) 79.7 % (37.0-80.0); Nucleated Red Blood Cells % 0.1 %; Platelet Count (auto) 309 10^3/uL (140-450); Red Blood Cells 4.41 10^6/uL (4.5-5.90); Red Cell Distribution Width 14.6 % (11.8-14.3); White Blood Cell 14.4 10^3/uL (4.4-10.8)
--- NOTE | 2024-03-13 13:32 | DVHPNRES ---
Progress Note Date Seen: Mar 13, 2024 Resident Creating Document: RANDY MARSHALL JULIO CÉSAR Has the PT tested + for MRSA If YES, has PT been informed?: No Medical Necessity Reason Pt with a Central, PICC or Fol: No Subjective Review of Systems Patient seen and examined at the bedside. Patient is still confused and could not communicate. Patient reports: No new complaints Objective vital signs Vital Sign Date Time Temp Pulse Resp B/P (MAP) Pulse Ox O2 Delivery O2 Flow Rate FiO2 03/13/24 12:47 99.0 78 18 96/63 (74) 95 99.0 03/13/24 08:00 Room Air* 0 21 Total Intake and Output 03/12/24 03/12/24 03/13/24 15:00 23:00 07:00 Intake Total 50 ml 420 ml 0 ml Output Total 400 ml 200 ml Balance 50 ml 20 ml -200 ml medications Current Medications Medications Dose Ordered Sig/Candice Route Start Time Stop Time Status Last Admin Dose Admin Sodium Chloride 10 ml Q8HR IV 03/05/24 22:00 03/13/24 05:40 10 ML Ondansetron HCl 4 mg Q4HP PRN IV 03/05/24 20:45 Acetaminophen 650 mg Q6HP PRN PO 03/05/24 20:45 Morphine Sulfate 2 mg Q4HPRN PRN IV 03/05/24 20:45 Nitroglycerin 0.4 mg Q5MINP PRN SL 03/05/24 20:45 Morphine Sulfate 2 mg Q30M PRN IV 03/05/24 20:45 Pantoprazole Sodium 40 mg DAILY IV 03/06/24 10:00 03/13/24 09:31 40 MG Tamsulosin HCl 0.4 mg DAILY PO 03/06/24 10:00 03/13/24 10:01 0.4 MG Ipratropium [place] 0.5 mg Q4HPRN PRN NEB 03/06/24 09:45 Cancel Calamine 1 applic QIDP PRN TOP 03/06/24 15:30 03/06/24 18:07 1 APPLIC Potassium Bicarbonate 50 meq DAILY PO 03/09/24 10:00 03/13/24 09:38 50 MEQ Diagnostic Test (Pha) 1 strip Q6HR 03/08/24 18:00 03/13/24 12:00 1 STRIP Insulin Human Regular Q6HR SC 03/08/24 18:00 03/12/24 12:20 2 UNITS Dextrose 50 ml UD PRN IV 03/08/24 15:30 Valproate Sodium 125 mg BID PO 03/08/24 15:30 03/13/24 09:39 125 MG Ertapenem 1 gm/ Sodium Chloride 50 ml @ 100 mls/hr DAILY IV 03/11/24 10:00 03/13/24 09:56 100 MLS/HR Examination General Appearance: An old male lying on the bed, alert but could not communicate. HEENT: Atraumatic, PERRLA, EOMI, Mucous membrane moist/pink Respiratory: Clear to auscultation, Normal air movement Cardiovascular: Regular rate, Normal S1, Normal S2, No murmurs, no chest wall tenderness Abdominal: Normal bowel sounds, Soft, No tenderness, No hepatospenomegaly, No masses Extremities: No clubbing, No cyanosis, No edema, Normal pulses, No tenderness/swelling Skin: There is a scar tissue on the back of the patient, remnant of healed bedsore laboratory and microbiology Laboratory Tests 03/13/24 05:36 03/09/24 05:40 Test 03/09/24 05:40 Range/Units Serum Glucose 83 74-106 mg/dL Microbiology Date/Time Source Procedure Growth Status 03/07/24 13:20 Nose MRSA Screen - Final Complete 03/06/24 09:20 Blood Blood Culture - Final NO GROWTH AFTER 5 DAYS OF INCUBATION. Complete 03/05/24 17:00 Voided Urine Urine Culture - Final Klebsiella pneumoniae - ESBL Complete Labs and/or images reviewed: Labs reviewed by me, Image(s) reviewed by me Problem List/Assessment/Plan Problem List/Assessment/Plan Acute metabolic encephalopathy likely due to UTI/electrolyte imbalance Acute complicated UTI BPH Maryana hematuria Urinalysis shows maryana hematuria Urine culture, shows Klebsiella pneumoniae, ESBL Blood culture results of the 72 hours shows no growth. Discontinue Meropenem Start ertapenem Continue Tamsulosin Today, WBC has raised to 14 Consulted Urology, recommended outpatient basis follow up and for cystoscopy MRSA screening negative Hypernatremia Sodium is normalized Monitoring Hypokalemia Supplement Hyperchloremia Monitor Questionable Rhabdomyolysis, likely due to immobility IV fluids Severe dementia Continue home medical Hypotension 500 mL normal saline bolus Permanent atrial fibrillation Due to hematuria, could not give anticoagulant DVT prophylaxis SCD Diet Regular diet Code status Full code As the urine culture shows Klebsiella pneumoniae ESBL, the patient is planned to discharge to SNF (as his previous facility, [facility] could not provide IV antibiotic) for IV antibiotic ertapenem 1 g daily for 14 days, social work instructor on the board for providing the place still waiting for the SNF authorization. Case discussed with Plan discussed with: Patient, Other (RN) My Orders My Orders Orders - RANDY MARSHALL RESDIMICHAEL Procedure Category Date Status Time * Wound Consult CONS 03/13/24 Transmitted * Dietary Consult CONS 03/13/24 Transmitted 10:00 Date of Service: Mar 13, 2024 Billing Provider: VARSHA MAYERS MD Common Visit Codes: [id number] INP/OBS CARE(HIGH) RANDY MARSHALL RESDIMICHAEL Mar 13, 2024 13:32 VARSHA MAYERS MD Mar 14, 2024 20:00
[2024-03-13] MEDS: SODIUM CHLORIDE 0.9% 500 ML IV ONE (17:41)
[2024-03-13 19:27] LABS: Chloride 101 mmol/L (98-107); Sodium 138 mmol/L (136-145)
[2024-03-13 19:28] LABS: Anion Gap 7 (5-15); Calcium 10.2 mg/dL (8.7-10.4); Carbon Dioxide 30 mmol/L (20-31)
[2024-03-13 19:33] LABS: BUN/Creatinine Ratio 24.1 (10.0-20.0); Blood Urea Nitrogen 27 mg/dL (9-23); Glucose 87 mg/dL (74-106)
[2024-03-14] VITALS (8 sets, daily range): BP systolic 96–110; BP diastolic 51–64; PULSE 51–79; RESP 15–18; TEMP 98.3–99.4; O2SAT 95–100
[2024-03-14 06:05] LABS: Basophils # (auto) 0 10 ^3/uL (0-0.2); Basophils % (auto) 0.1 % (0.0-2.0); Eosinophils # (auto) 0.5 10 ^3/uL (0-0.8); Eosinophils % (auto) 5.6 % (0.0-7.0); Hematocrit 34.4 % (41.0-53.0); Lymphocytes # (auto) 1.6 10 ^3/uL (0.4-5.4); Lymphocytes % (auto) 18.1 % (10.0-50.0); Mean Corpuscular Hemoglobin 30.9 pg (28.0-32.0); Mean Corpuscular Hgb Conc. 34.7 g/dL (32.0-36.0); Mean Corpuscular Volume 88.8 fL (80.0-100.0); Monocytes # (auto) 0.6 10 ^3/uL (0-1.3); Neutrophils % (auto) 69.2 % (37.0-80.0); Platelet Count (auto) 300 10^3/uL (140-450); Red Blood Cells 3.88 10^6/uL (4.5-5.90); Red Cell Distribution Width 14.2 % (11.8-14.3); White Blood Cell 8.7 10^3/uL (4.4-10.8)
--- NOTE | 2024-03-14 16:47 | DVHPNRES ---
Progress Note Date Seen: Mar 14, 2024 Resident Creating Document: KELSEA CONNELLY RESIDENT Has the PT tested + for MRSA If YES, has PT been informed?: No Medical Necessity Reason Pt with a Central, PICC or Fol: No Subjective Review of Systems Patient seen and examined at the bedside. Patient is still confused and could not communicate. Awaiting SNF placement. ROS could not be done as patient is confused. Objective vital signs Vital Sign Date Time Temp Pulse Resp B/P (MAP) Pulse Ox O2 Delivery O2 Flow Rate FiO2 03/14/24 13:00 98.3 70 15 96/57 (70) 100 98.3 03/14/24 08:15 Room Air* 0 21 Total Intake and Output 03/13/24 03/13/24 03/14/24 15:00 23:00 07:00 Intake Total 1050 ml 1940 ml 755 ml Output Total 1325 ml 1300 ml Balance 1050 ml 615 ml -545 ml medications Current Medications Medications Dose Ordered Sig/Candice Route Start Time Stop Time Status Last Admin Dose Admin Sodium Chloride 10 ml Q8HR IV 03/05/24 22:00 03/14/24 13:04 10 ML Ondansetron HCl 4 mg Q4HP PRN IV 03/05/24 20:45 Acetaminophen 650 mg Q6HP PRN PO 03/05/24 20:45 Morphine Sulfate 2 mg Q4HPRN PRN IV 03/05/24 20:45 Nitroglycerin 0.4 mg Q5MINP PRN SL 03/05/24 20:45 Morphine Sulfate 2 mg Q30M PRN IV 03/05/24 20:45 Pantoprazole Sodium 40 mg DAILY IV 03/06/24 10:00 03/14/24 11:35 40 MG Tamsulosin HCl 0.4 mg DAILY PO 03/06/24 10:00 03/14/24 09:42 0.4 MG Ipratropium [place] 0.5 mg Q4HPRN PRN NEB 03/06/24 09:45 Cancel Calamine 1 applic QIDP PRN TOP 03/06/24 15:30 03/06/24 18:07 1 APPLIC Potassium Bicarbonate 50 meq DAILY PO 03/09/24 10:00 03/14/24 09:42 50 MEQ Diagnostic Test (Pha) 1 strip Q6HR 03/08/24 18:00 03/14/24 13:02 1 STRIP Insulin Human Regular Q6HR SC 03/08/24 18:00 03/12/24 12:20 2 UNITS Dextrose 50 ml UD PRN IV 03/08/24 15:30 Valproate Sodium 125 mg BID PO 03/08/24 15:30 03/14/24 09:41 125 MG Ertapenem 1 gm/ Sodium Chloride 50 ml @ 100 mls/hr DAILY IV 03/11/24 10:00 03/14/24 10:00 100 MLS/HR Examination General Appearance: An old male lying on the bed, alert but could not communicate. HEENT: Atraumatic, PERRLA, EOMI, Mucous membrane moist/pink Respiratory: Clear to auscultation, Normal air movement Cardiovascular: Regular rate, Normal S1, Normal S2, No murmurs, no chest wall tenderness Abdominal: Normal bowel sounds, Soft, No tenderness, No hepatospenomegaly, No masses Extremities: No clubbing, No cyanosis, No edema, Normal pulses, No tenderness/swelling Skin: There is a scar tissue on the back of the patient, remnant of healed bedsore laboratory and microbiology Laboratory Tests 03/14/24 05:06 03/13/24 05:36 Test 03/13/24 05:36 Range/Units Serum Glucose 87 74-106 mg/dL Microbiology Date/Time Source Procedure Growth Status 03/07/24 13:20 Nose MRSA Screen - Final Complete 03/06/24 09:20 Blood Blood Culture - Final NO GROWTH AFTER 5 DAYS OF INCUBATION. Complete 03/05/24 17:00 Voided Urine Urine Culture - Final Klebsiella pneumoniae - ESBL Complete Labs and/or images reviewed: Labs reviewed by me, Image(s) reviewed by me Problem List/Assessment/Plan Problem List/Assessment/Plan Assessment/Plan #Acute metabolic encephalopathy likely due to UTI/electrolyte imbalance -IV antibiotics -Head CT #Acute complicated UTI -IV ertapenam based on urine cultures #BPH -urology consulted #Maryana hematuria likely due to UTI Urinalysis shows maryana hematuria, improving Urine culture, shows Klebsiella UTI Consulted Urology outpt cystoscopy TBA d/c home with [place] as per Urology recommendation #Hypernatremia Check serum sodium #Hypokalemia Supplement #Hyperchloremia Monitor #Severe dementia Continue home medical #Permanent atrial fibrillation Due to hematuria, could not give anticoagulant #DVT prophylaxis SCD Code status Full code senior professional services consultant consulted to arrange Transfer to SNF for IV antibiotics and PT Awaiting SNF placement Case discussed with Plan discussed with: Patient, Other Dietary Evaluation Review Comments: 1) Advance pt diet when medically feasible 2) Continue current plan of care Expected Outcomes/Goals: F/U in 3-5 days Date of Service: Mar 14, 2024 Billing Provider: MARGRET PIÑA DO Common Visit Codes: [id number] INP/OBS CARE(HIGH) KELSEA CONNELLY RESIDENT Mar 14, 2024 16:47 MARGRET PIÑA DO Mar 16, 2024 20:17
[2024-03-15] VITALS (7 sets, daily range): BP systolic 98–123; BP diastolic 53–87; PULSE 61–83; RESP 16–18; TEMP 97.5–98.2; O2SAT 92–99
[2024-03-15 06:39] LABS: Basophils # (auto) 0 10 ^3/uL (0-0.2); Basophils % (auto) 0.1 % (0.0-2.0); Eosinophils # (auto) 0.4 10 ^3/uL (0-0.8); Eosinophils % (auto) 5.2 % (0.0-7.0); Hematocrit 37.1 % (41.0-53.0); Hemoglobin 12.7 g/dL (13.5-17.5); Mean Corpuscular Hemoglobin 30.6 pg (28.0-32.0); Mean Corpuscular Hgb Conc. 34.3 g/dL (32.0-36.0); Mean Corpuscular Volume 89.1 fL (80.0-100.0); Monocytes # (auto) 0.5 10 ^3/uL (0-1.3); Monocytes % (auto) 6.6 % (0.0-12.0); Neutrophils # (auto) 5.9 10 ^3/uL (1.6-8.6); Neutrophils % (auto) 75.1 % (37.0-80.0); Platelet Count (auto) 322 10^3/uL (140-450); Red Blood Cells 4.16 10^6/uL (4.5-5.90); Red Cell Distribution Width 14.5 % (11.8-14.3); White Blood Cell 7.8 10^3/uL (4.4-10.8)
[2024-03-15 06:44] LABS: Anion Gap 6 (5-15); Carbon Dioxide 31 mmol/L (20-31); Chloride 100 mmol/L (98-107); Sodium 137 mmol/L (136-145)
[2024-03-15 06:45] LABS: Calcium 10.4 mg/dL (8.7-10.4)
[2024-03-15 06:50] LABS: BUN/Creatinine Ratio 25.3 (10.0-20.0); Blood Urea Nitrogen 21 mg/dL (9-23); Glucose 104 mg/dL (74-106)
[2024-03-15 06:51] LABS: Magnesium 2.1 mg/dL (1.6-2.6)
[2024-03-15 06:57] LABS: Potassium 5.7 mmol/L (3.5-5.1)
--- NOTE | 2024-03-15 11:14 | DVHPNRES ---
Progress Note Date Seen: Mar 15, 2024 Resident Creating Document: RANDY MARSHALL JULIO CÉSAR Has the PT tested + for MRSA If YES, has PT been informed?: No Medical Necessity Reason Pt with a Central, PICC or Fol: No Subjective Review of Systems Patient seen and examined at the bedside. Patient is still confused and could not communicate. Patient reports: No new complaints Changes from previous H/P or p: No Changes Objective vital signs Vital Sign Date Time Temp Pulse Resp B/P (MAP) Pulse Ox O2 Delivery O2 Flow Rate FiO2 03/15/24 08:05 Room Air* 0 21 03/15/24 05:00 98.2 71 16 119/84 (37) 92 98.2 Total Intake and Output 03/14/24 03/14/24 03/15/24 14:59 22:59 06:59 Intake Total 935 ml 800 ml 320 ml Output Total 1300 ml 250 ml Balance 935 ml -500 ml 70 ml medications Current Medications Medications Dose Ordered Sig/Candice Route Start Time Stop Time Status Last Admin Dose Admin Sodium Chloride 10 ml Q8HR IV 03/05/24 22:00 03/15/24 05:35 10 ML Ondansetron HCl 4 mg Q4HP PRN IV 03/05/24 20:45 Acetaminophen 650 mg Q6HP PRN PO 03/05/24 20:45 Nitroglycerin 0.4 mg Q5MINP PRN SL 03/05/24 20:45 Pantoprazole Sodium 40 mg DAILY IV 03/06/24 10:00 03/15/24 09:35 40 MG Tamsulosin HCl 0.4 mg DAILY PO 03/06/24 10:00 03/15/24 09:34 0.4 MG Ipratropium [place] 0.5 mg Q4HPRN PRN NEB 03/06/24 09:45 Cancel [place] 1 applic QIDP PRN TOP 03/06/24 15:30 03/06/24 18:07 1 APPLIC Potassium Bicarbonate 50 meq DAILY PO 03/09/24 10:00 03/14/24 09:42 50 MEQ Diagnostic Test (Pha) 1 strip Q6HR 03/08/24 18:00 03/15/24 05:37 1 STRIP Insulin Human Regular Q6HR SC 03/08/24 18:00 03/12/24 12:20 2 UNITS Dextrose 50 ml UD PRN IV 03/08/24 15:30 Valproate Sodium 125 mg BID PO 03/08/24 15:30 03/15/24 09:35 125 MG Ertapenem 1 gm/ Sodium Chloride 50 ml @ 100 mls/hr DAILY IV 03/11/24 10:00 03/15/24 09:35 100 MLS/HR Examination General Appearance: An old male lying on the bed, alert but could not communicate. HEENT: Atraumatic, PERRLA, EOMI, Mucous membrane moist/pink Respiratory: Clear to auscultation, Normal air movement Cardiovascular: Regular rate, Normal S1, Normal S2, No murmurs, no chest wall tenderness Abdominal: Normal bowel sounds, Soft, No tenderness, No hepatospenomegaly, No masses Extremities: No clubbing, No cyanosis, No edema, Normal pulses, No tenderness/swelling Skin: There is a scar tissue on the back of the patient, remnant of healed bedsore laboratory and microbiology Laboratory Tests 03/15/24 05:33 Test 03/15/24 05:33 Range/Units Serum Glucose 104 74-106 mg/dL Microbiology Date/Time Source Procedure Growth Status 03/07/24 13:20 Nose MRSA Screen - Final Complete 03/06/24 09:20 Blood Blood Culture - Final NO GROWTH AFTER 5 DAYS OF INCUBATION. Complete 03/05/24 17:00 Voided Urine Urine Culture - Final Klebsiella pneumoniae - ESBL Complete Labs and/or images reviewed: Labs reviewed by me, Image(s) reviewed by me Problem List/Assessment/Plan Problem List/Assessment/Plan Acute metabolic encephalopathy likely due to UTI/electrolyte imbalance Acute complicated UTI BPH Maryana hematuria Urinalysis shows maryana hematuria Urine culture, shows Klebsiella pneumoniae, ESBL Blood culture results of the 72 hours shows no growth. Continue ertapenem Continue Tamsulosin Consulted Urology, recommended outpatient basis follow up and for cystoscopy MRSA screening negative Hypernatremia Sodium is normalized Monitoring Hypokalemia Supplement Hyperchloremia Monitor Questionable Rhabdomyolysis, likely due to immobility IV fluids Severe dementia Continue home medical Hypotension 500 mL normal saline bolus given Improved Permanent atrial fibrillation Due to hematuria, could not give anticoagulant DVT prophylaxis SCD Diet Regular diet Code status Full code As the urine culture shows Klebsiella pneumoniae ESBL, the patient is planned to discharge to SNF (as his previous facility, [facility] could not provide IV antibiotic) for IV antibiotic ertapenem 1 g daily for 14 days, director social welfare on the board for providing the place still waiting for the SNF authorization. Case discussed with Dr. Piña Plan discussed with: Patient, Other (RN) Dietary Evaluation Review Comments: 1) Advance pt diet when medically feasible 2) Continue current plan of care Expected Outcomes/Goals: F/U in 3-5 days Date of Service: Mar 15, 2024 Billing Provider: MARGRET PIÑA DO Common Visit Codes: [id number] INP/OBS CARE(HIGH) RANDY MARSHALL RESDIMICHAEL Mar 15, 2024 11:14 MARGRET PIÑA DO Mar 16, 2024 20:18
--- NOTE | 2024-03-15 15:33 | DVHTSRES ---
Transfer Summary Transfer Summary Resident Creating Document: RANDY MARSHALL RESDIENT Date of Admission Mar 05, 2024 at 20:35 Date of Transfer: Mar 09, 2024 Transfer Diagnosis UTI secondary to Klebsiella pneumoniae ESBL Brief Hx & Hospital Course: Patient Summary for Transfer: Patient: 83-year-old male Past Medical History: Severe dementia, permanent atrial fibrillation, BPH, ga llstones, Alzheimers, COPD, depression Chief Complaint: Altered level of consciousness and hematuria History of Present Illness: * Brought from a care facility with altered level of consciousness and witnessed blood in the urine. * Previously admitted on February 02, 2024, for metabolic encephalopathy secondary to septic shock and found to have hematuria. * Underwent cystoscopy with biopsy and fulguration of a bladder neck lesion on 02/04/2024; reports showed no malignancy. and discharged with a PICC line for IV antibiotics; at discharge, the patient was alert, awake, but not communicative. Current Presentation: * Aphasic, with scar tissue from a healed bedsore on his back. * Urine culture: ESBL Klebsiella pneumoniae * Head CT scan: Chronic ischemic changes. Diagnosis: * Acute metabolic encephalopathy likely due to UTI/electrolyte imbalance * Acute complicated UTI * [place] hematuria, improved Current Treatment: * Continue ertapenem * Outpatient follow-up with Urology for cystoscopy * MRSA screening negative * Continue home medications for severe dementia Plan: * Discharge to SNF for IV antibiotic ertapenem 1 g daily for 14 days (previous facility unable to provide IV antibiotics) * director pharmacy services involved, awaiting SNF authorization Transfer Status Stable RANDY MARSHALL RESDIENT Mar 15, 2024 15:33 MARGRET PIÑA DO Mar 16, 2024 20:18
[2024-03-16] VITALS (7 sets, daily range): BP systolic 102–127; BP diastolic 53–90; PULSE 65–74; RESP 16–18; TEMP 97.8–98.5; O2SAT 98–99
[2024-03-16] MEDS ORDERED: SODIUM BICARB 8.4% 50Meq/50ml SYR INJ IV ONE (08:45)
[2024-03-16] MEDS ORDERED: SODIUM ZIRCONIUM CYCL 10 GM PAK PO SCH (08:45)
[2024-03-16] MEDS ORDERED: ALBUTEROL SULF 2.5 MG/0.5ML(0.5%) NEB SOLN NEB ONE (08:45)
[2024-03-16] MEDS ORDERED: FUROSEMIDE 20 MG/2 ML VIAL IV ONE (08:45)
[2024-03-16 08:49] LABS: Basophils # (auto) 0 10 ^3/uL (0-0.2); Basophils % (auto) 0.1 % (0.0-2.0); Eosinophils # (auto) 0.4 10 ^3/uL (0-0.8); Hematocrit 35.6 % (41.0-53.0); Hemoglobin 12.4 g/dL (13.5-17.5); Lymphocytes # (auto) 1.2 10 ^3/uL (0.4-5.4); Lymphocytes % (auto) 15.8 % (10.0-50.0); Mean Corpuscular Hemoglobin 30.8 pg (28.0-32.0); Mean Corpuscular Hgb Conc. 34.8 g/dL (32.0-36.0); Mean Corpuscular Volume 88.6 fL (80.0-100.0); Monocytes # (auto) 0.6 10 ^3/uL (0-1.3); Monocytes % (auto) 7.7 % (0.0-12.0); Neutrophils # (auto) 5.3 10 ^3/uL (1.6-8.6); Neutrophils % (auto) 71.4 % (37.0-80.0); Platelet Count (auto) 352 10^3/uL (140-450); Red Blood Cells 4.01 10^6/uL (4.5-5.90); Red Cell Distribution Width 14.4 % (11.8-14.3); White Blood Cell 7.4 10^3/uL (4.4-10.8)
[2024-03-16 09:09] LABS: Alanine Aminotransferase 27 U/L (7-40); Albumin 3.7 g/dL (3.2-4.8); Alkaline Phosphatase 110 U/L (46-116); Anion Gap 5 (5-15); Aspartate Aminotransferase 37 U/L (13-40); BUN/Creatinine Ratio 25.6 (10.0-20.0); Bilirubin, Total 0.7 mg/dL (0.2-1.0); Blood Urea Nitrogen 23 mg/dL (9-23); Calcium 10.1 mg/dL (8.7-10.4); Carbon Dioxide 32 mmol/L (20-31); Chloride 101 mmol/L (98-107); Glucose 88 mg/dL (74-106); Potassium 4.6 mmol/L (3.5-5.1); Sodium 138 mmol/L (136-145); Total Protein 6.4 g/dL (5.7-8.2)
--- NOTE | 2024-03-16 18:44 | DVHPNRES ---
Progress Note Date Seen: Mar 16, 2024 Resident Creating Document: MARC FRANCIS RESIDENT Has the PT tested + for MRSA If YES, has PT been informed?: No Medical Necessity Reason Pt with a Central, PICC or Fol: No Subjective Review of Systems This is an 83 years old male with PMH of Alzheimer's, COPD, depression from for [facility] care facility presented to the ED with the chief complaints of blood in urine noted by staff and altered. Past Medical History: Alzheimer's, COPD, depression Past Surgical History:Unable to obtain Family History:Unable to obtain Past Social History: Lives at [facility]. Patient seen and examined at the bedside. Patient is lying in bed but was able to answer question. Patient is currently awaiting SNF placement. Objective vital signs Vital Sign Date Time Temp Pulse Resp B/P (MAP) Pulse Ox O2 Delivery O2 Flow Rate FiO2 03/16/24 17:00 98.2 71 18 127/71 (89) 98 98.2 03/16/24 08:00 Room Air* 0 21 Total Intake and Output 03/15/24 03/15/24 03/16/24 15:00 23:00 07:00 Intake Total 50 ml 768 ml 550 ml Output Total 2050 ml 475 ml Balance 50 ml -1282 ml 75 ml medications Current Medications Medications Dose Ordered Sig/Candice Route Start Time Stop Time Status Last Admin Dose Admin Sodium Chloride 10 ml Q8HR IV 03/05/24 22:00 03/16/24 14:00 10 ML Ondansetron HCl 4 mg Q4HP PRN IV 03/05/24 20:45 Acetaminophen 650 mg Q6HP PRN PO 03/05/24 20:45 Nitroglycerin 0.4 mg Q5MINP PRN SL 03/05/24 20:45 Pantoprazole Sodium 40 mg DAILY IV 03/06/24 10:00 03/16/24 09:49 40 MG Tamsulosin HCl 0.4 mg DAILY PO 03/06/24 10:00 03/16/24 09:49 0.4 MG Ipratropium [place] 0.5 mg Q4HPRN PRN NEB 03/06/24 09:45 Cancel Calamine 1 applic QIDP PRN TOP 03/06/24 15:30 03/16/24 05:43 1 APPLIC Diagnostic Test (Pha) 1 strip Q6HR 03/08/24 18:00 03/16/24 18:10 1 STRIP Insulin Human Regular Q6HR SC 03/08/24 18:00 03/12/24 12:20 2 UNITS Dextrose 50 ml UD PRN IV 03/08/24 15:30 Valproate Sodium 125 mg BID PO 03/08/24 15:30 03/16/24 09:50 125 MG Ertapenem 1 gm/ Sodium Chloride 50 ml @ 100 mls/hr DAILY IV 03/11/24 10:00 03/16/24 09:49 100 MLS/HR Nitrofurantoin [place] 100 mg BID PO 03/16/24 22:00 03/26/24 21:59 Examination General Appearance: An old male lying on the bed, alert and able to answer communicate. HEENT: Atraumatic, PERRLA, EOMI, Mucous membrane moist/pink Respiratory: Clear to auscultation, Normal air movement Cardiovascular: Regular rate, Normal S1, Normal S2, No murmurs, no chest wall tenderness Abdominal: Normal bowel sounds, Soft, No tenderness, No hepatospenomegaly, No masses Extremities: No clubbing, No cyanosis, No edema, Normal pulses, No tenderness/swelling Skin: There is a scar tissue on the back of the patient, remnant of healed bedsore laboratory and microbiology Laboratory Tests 03/16/24 08:35 Test 03/16/24 08:35 Range/Units Serum Glucose 88 74-106 mg/dL Microbiology Date/Time Source Procedure Growth Status 03/07/24 13:20 Nose MRSA Screen - Final Complete 03/06/24 09:20 Blood Blood Culture - Final NO GROWTH AFTER 5 DAYS OF INCUBATION. Complete 03/05/24 17:00 Voided Urine Urine Culture - Final Klebsiella pneumoniae - ESBL Complete Problem List/Assessment/Plan Problem List/Assessment/Plan Acute metabolic encephalopathy likely due to UTI/electrolyte imbalance Acute complicated UTI BPH Maryana hematuria Urinalysis shows maryana hematuria Urine culture, shows Klebsiella pneumoniae, ESBL Blood culture results of the 72 hours shows no growth. Continue ertapenem Continue Tamsulosin Consulted Urology, recommended outpatient basis follow up and for cystoscopy MRSA screening negative Hypernatremia: Sodium is normalized;Monitoring Hypokalemia: Supplement hyperkalemia ( New 03/15/2024) Hyperchloremia: Monitor Questionable Rhabdomyolysis, likely due to immobility:IV fluids Severe dementia:Continue home medical Hypotension s/p500 mL normal saline bolus given-Improved Permanent atrial fibrillation Due to hematuria, could not give anticoagulant DVT prophylaxis: SCD Diet: Regular diet Code status: Full code Patient planned to discharge to SNF (as his previous facility, [facility] could not provide IV antibiotic) for IV antibiotic ertapenem 1 g daily for 14 days ( on day 10 today); social worker palliative care on the board for providing the place still waiting for the SNF authorization. Case discussed with Dr. Hough Plan discussed with: Maricruzter Plan discussed with: Other My Orders My Orders Orders - MARC FRANCIS Procedure Category Date Status Time Nitrofurantoin PHA 03/16/24 In Process Capsule (Macrobid) 22:00 Dietary Evaluation Review Comments: 1) Advance pt diet when medically feasible 2) Continue current plan of care Expected Outcomes/Goals: F/U in 3-5 days Date of Service: Mar 16, 2024 Billing Provider: VARSHA MAYERS MD Common Visit Codes: [id number] INP/OBS CARE(HIGH) MARC FRANCIS Mar 16, 2024 18:44 VARSHA MAYERS MD Mar 18, 2024 23:01
[2024-03-16] MEDS: NITROFURANTOIN 100 mg CAP PO SCH (20:40)
[2024-03-17 01:00] VITALS: BP 117/51; PULSE 64; RESP 18; TEMP 98; O2SAT 97
[2024-03-17 05:00] VITALS: BP 109/62; PULSE 65; RESP 18; TEMP 97.4; O2SAT 100
[2024-03-17 08:33] VITALS: BP 140/68; PULSE 69; RESP 18; TEMP 98.8; O2SAT 98
[2024-03-17 08:43] LABS: Chloride 101 mmol/L (98-107); Sodium 138 mmol/L (136-145)
[2024-03-17 08:44] LABS: Anion Gap 5 (5-15); Carbon Dioxide 32 mmol/L (20-31)
[2024-03-17 08:45] LABS: Calcium 10.7 mg/dL (8.7-10.4)
[2024-03-17 08:48] LABS: Potassium 5.6 mmol/L (3.5-5.1)
[2024-03-17 08:50] LABS: BUN/Creatinine Ratio 27.2 (10.0-20.0); Blood Urea Nitrogen 22 mg/dL (9-23); Glucose 97 mg/dL (74-106)
[2024-03-17] MEDS: SODIUM ZIRCONIUM CYCL 10 GM PAK PO ONE (10:15)
[2024-03-17 12:36] VITALS: BP 109/83; PULSE 79; RESP 19; TEMP 98.4; O2SAT 100
--- NOTE | 2024-03-17 16:39 | DVHDSRES ---
Discharge Summary Date of Admission Resident Creating Document: MARC FRANCIS RESIDENT Mar 05, 2024 at 20:35 Date of Discharge: Mar 17, 2024 Admitting Diagnosis Blood in urine and Altered mental status Labs/Diagnostic Data: Laboratory Results Test 03/17/24 11:38 03/17/24 08:13 03/16/24 08:35 03/15/24 05:33 POC Glucose 82 mg/dl (70-106) Sodium Level 138 mmol/L (136-145) Potassium Level 5.6 mmol/L (3.5-5.1) Chloride Level 101 mmol/L (98-107) Carbon Dioxide Level 32 mmol/L (20-31) Anion Gap 5 (5-15) Blood Urea Nitrogen 22 mg/dL (9-23) Creatinine 0.81 mg/dL (0.700-1.30) Glomerular Filtration Rate Calc 89 mL/min (>90) BUN/Creatinine Ratio 27.2 (10.0-20.0) Serum Glucose 97 mg/dL (74-106) Calcium Level 10.7 mg/dL (8.7-10.4) White Blood Count 7.4 10^3/uL (4.4-10.8) Red Blood Count 4.01 10^6/uL (4.5-5.90) Hemoglobin 12.4 g/dL (13.5-17.5) Hematocrit 35.6 % (41.0-53.0) Mean Corpuscular Volume 88.6 fL (80.0-100.0) Mean Corpuscular Hemoglobin 30.8 pg (28.0-32.0) Mean Corpuscular Hemoglobin Concent 34.8 g/dL (32.0-36.0) Red Cell Distribution Width 14.4 % (11.8-14.3) Platelet Count 352 10^3/uL (140-450) Mean Platelet Volume 8.3 fL (6.9-10.8) Neutrophils (%) (Auto) 71.4 % (37.0-80.0) Lymphocytes (%) (Auto) 15.8 % (10.0-50.0) Monocytes (%) (Auto) 7.7 % (0.0-12.0) Eosinophils (%) (Auto) 5.0 % (0.0-7.0) Basophils (%) (Auto) 0.1 % (0.0-2.0) Neutrophils # (Auto) 5.3 10 ^3/uL (1.6-8.6) Lymphocytes # (Auto) 1.2 10 ^3/uL (0.4-5.4) Monocytes # (Auto) 0.6 10 ^3/uL (0-1.3) Eosinophils # (Auto) 0.4 10 ^3/uL (0-0.8) Basophils # (Auto) 0 10 ^3/uL (0-0.2) Nucleated Red Blood Cells 0.0 % Total Bilirubin 0.7 mg/dL (0.2-1.0) Aspartate Amino Transferase (AST) 37 U/L (13-40) Alanine Aminotransferase (ALT) 27 U/L (7-40) Alkaline Phosphatase 110 U/L (46-116) Total Protein 6.4 g/dL (5.7-8.2) Albumin 3.7 g/dL (3.2-4.8) Magnesium Level 2.1 mg/dL (1.6-2.6) Test 03/13/24 03:09 03/09/24 05:40 03/06/24 10:00 03/06/24 05:12 Influenza Type A Antigen Negative (Negative) Influenza Type B Antigen Negative (Negative) SARS-CoV-2 Antigen (Rapid) Negative (NEGATIVE) Creatine Kinase 65 U/L (46-171) Lactic Acid Level 1.0 mmol/L (0.4-2.0) Prothrombin Time 12.9 sec (9.3-11.8) Prothrombin Time INR 1.24 (0.9-1.15) Activated Partial Thromboplast Time 33.1 SEC (24.5-34.5) Test 03/06/24 01:08 03/05/24 23:12 03/05/24 17:00 03/05/24 15:26 Blood Gas Specimen Type Arterial Blood Gas Sample Site Right brachial Blood Gas Patient Temperature 37.0 Arterial Blood Date Drawn Arterial Blood pH 7.462 (7.350-7.450) Arterial Blood Partial Pressure CO2 38.2 mmHg (35.0-48.0) Arterial Blood Partial Pressure O2 139.7 mmHg (83.0-108.0) Arterial Blood HCO3 26.7 mmol/L (21.0-28.0) Arterial Blood Oxygen Saturation 98.4 % (94.0-98.0) Arterial Blood Base Excess 2.9 mmol/L (-2.0-3.0) Arterial Blood Oxyhemoglobin 97.9 % (94.0-98.0) Arterial Blood Carboxyhemoglobin 0.2 % (0.5-1.5) Arterial Blood Methemoglobin 0.3 % (0.0-1.5) Jimmy Test N/a Blood Gas Total Hemoglobin 13.50 g/dL (13.5-17.5) Blood Gas Liter Flow 3.00 Blood Gas Modality Nasal cannula FiO2 % 32.0 Hemoglobin A1c 4.9 % A1C (<5.7) Ammonia < 10 umol/L (11-32) Vitamin B12 Level 1283 pg/mL (211-911) Vitamin D 25-Hydroxy 42.9 ng/mL (30.0-100) Thyroid Stimulating Hormone (TSH) 2.12 uIU/mL (0.55-4.78) Urine Color Dark-red (Yellow) Urine Clarity Ex.turbid (Clear) Urine pH 6.0 (5.0-9.0) Urine Specific [place] 1.030 (1.001-1.035) Urine Protein 2+ (Negative) Urine Ketones Negative (Negative) Urine Blood 3+ /uL (Negative) Urine Nitrite Negative (Negative) Urine Bilirubin 1+ (Negative) Urine Urobilinogen Normal mg/dL (Negative) Urine Leukocyte Esterase Negative /uL (Negative) Urine RBC [id number] /hpf (0 - 3) Urine WBC 8212 /hpf (0 - 3) Urine Squamous Epithelial Cells None seen /hpf (<5) Urine Bacteria None seen /hpf (None Seen) Urine Glucose 3+ mg/dL (Normal) Urine Opiates Screen Neg (NEGATIVE) Urine Fentanyl Screen Neg (NEGATIVE) Urine Barbiturates Screen Neg (NEGATIVE) Urine Phencyclidine Screen Neg (NEGATIVE) Urine Amphetamines Screen Neg (NEGATIVE) Urine Benzodiazepines Screen Neg (NEGATIVE) Urine Cocaine Screen Neg (NEGATIVE) Urine Cannabinoids Screen Neg (NEGATIVE) Troponin I High Sensitivity 13 ng/L (</=54) Other Laboratory Tests 03/17/24 08:13 03/16/24 08:35 Brief Hx & Hospital Course: This is an 83 years old male with PMH of Alzheimer's, COPD, depression who was brought to the ED due to hematuria and altered mental. CT abdomen revealed Possible nonobstructing 2 mm left proximal ureteral calculus which could represent punctate atherosclerotic calcification within the left renal artery. No hydronephrosis was noted. Hypodense foci seen within the bladder, which could represent hemorrhage. Patient was managed for Acute metabolic encephalopathy likely due to UTI/electrolyte imbalance with IV antibiotics and fluids. Electrolytes were corrected accordingly. Currently transitioned to oral nitrofurantion as he is going back to the assisted living. Patient is back to his baseline. Sometimes he communicates other times he does not remember or communicate as well. Patient was seen by the urologist who recommended an outpatient cystoscopy for bladder mass. He is to be maintain a urinary catheter until she follows up with the urologist on outpatient. Consults/Reason for consult Reason for Consultation hematuria History Source: MD Notes Exam Limitations: Clinical condition HPI: 83 yo male with PMH of Alzheimer's, COPD, depression from for [facility] presented to the ED with the chief complaints of blood in urine noted by staff and altered. Patient is poor historian, unable to answer any question. Urine is now clear. family is bedside for visitation Past Medical History:Alzheimer's, COPD, depression Past Surgical History:Unable to obtain Family History: Unable to obtain Past Social History: [facility] Operations or Procedures ORDERING PHYSICIAN: ITZEL KEVIN RESIDENT PROCEDURE(s): ABPL - CT AB PEL WO CON-NO ORAL OR IV REASON: Hematuria,UTi complicated ORDER NUMBER(s): [id number], ACCESSION NUMBER(s): [id number] Exam: CT CT AB PEL WO CON-NO ORAL OR IV History: Hematuria,UTi complicated Comparison Study: None available at time of dictation. TECHNIQUE: Multidetector CT of the abdomen was performed from lung bases to pubic symphysis. Imaging was performed without IV contrast. Axial, coronal and sagittal multiplanar reformats were obtained from the axial data set by the technologist. Radiation Dose Information: CT Dose: CTDI volume is 25 mGy. Dose-length product is 250 mGy*cm FINDINGS: Evaluation of solid organs is limited due to lack of intravenous contrast use. Findings: Lung Bases: No acute or significant lung base finding. Normal heart size. No pleural or pericardial effusion. Liver: Hepatic steatosis. Gallbladder and Biliary Tree: Unremarkable Spleen: Unremarkable Pancreas: The pancreas is grossly normal in appearance. Adrenal Glands: Unremarkable Kidneys: Kidneys are grossly normal without calculi or hydronephrosis. Possible nonobstructing 2 mm left proximal ureteral calculus. This could represent punctate atherosclerotic calcification within the left renal artery alternatively. No hydronephrosis. Bladder: Garza catheter present within the bladder. Hypodense foci seen within the bladder, which could represent hemorrhage. Bowel: The stomach is grossly normal in appearance. Small bowel and colon are normal in caliber and distribution. The appendix is not visualized; however, no secondary findings of acute appendicitis identified. Ascites: Absent Lymphadenopathy: No mesenteric, retroperitoneal or periportal lymphadenopathy. Abdominal Wall and Mesentery: Unremarkable. Vasculature: The visualized abdominal aorta is normal in size and caliber. Evaluation of abdominal and pelvic vessels is limited due to lack of intravenous contrast. Pelvic Organs: Unremarkable Musculoskeletal: No aggressive focal bony lesions, acute fractures or dislocation. Soft tissues: Unremarkable IMPRESSION: Possible nonobstructing 2 mm left proximal ureteral calculus. This could represent punctate atherosclerotic calcification within the left renal artery alternatively. No hydronephrosis. Garza catheter present within the bladder. Hypodense foci seen within the bladder, which could represent hemorrhage. Radiation optimization: All CT scans at this facility use at least one of these dose optimization techniques: automated exposure control mA and/or kV adjustment per patient size (includes targeted exams where dose is matched to clinical indication) or iterative reconstruction. ATED BY: PANFILO RUST MD DICTATED DATE/TIME: 03/06/24407 SIGNED BY: PANFILO RUST MD SIGNED DATE/TIME: 03/06/24407 Condition at Discharge: Stable Final Diagnosis/Problems List UTI, due ESBL K. Pneumonia Acute metabolic encephalopathy Malnutrition Hypernatremia Hypokalemia Alzheimer's Hyperkalemia Discharge Disposition: Assisted Living Facility Discharge Instruct/Medications Diet: Cardiac 2g Na,low cholest Activity: No Restrictions, As Tolerated Follow Up/Referral: Follow up with the PCP within one week after discharge. Follow up with the Urology for cystoscopy at the office within one after discharge. Medications: oral nitrofurantoin resume Discharge Statement: "Patient was advised to return to the ER or call 911 if any headaches, dizziness, shortness of breath, chest pain, abdominal pain, bleeding, fevers, or worsening of medical condition. Patient was counseled about treatment plan, medications, possible side effects, patientverbalized understanding. All questions were answered to the best of my ability. This discharge took greater then 30 minutes in planning, reviewing documentation, counseling the patient, and discussing with other team members." ASSESSMENT ASSESSMENT Assessment UTI, due ESBL K. Pneumonia Alzheimer's Date of Service: Mar 17, 2024 Billing Provider: VARSHA MAYERS MD Common Visit Codes: 70527-UWX/OBS DISCH DAY >30min MARC FRANCIS RESIDENT Mar 17, 2024 16:39 VARSHA MAYERS MD Mar 18, 2024 22:50
[2024-03-17 16:57] VITALS: BP 138/87; PULSE 81; RESP 21; TEMP 97.9; O2SAT 100
[2024-03-17] MEDS ORDERED: NITR-87 PO (17:14)
[2024-03-17] MEDS ORDERED: CALALOT11 TOP (17:14)
== END 2024-03-17 18:45 | disposition home or self-care (01) | DRG 689 ==
LOC: EDBD 14:40 → ER 14:44 → TELE 20:35 → TELE-WESTW 20:38 → TELE-EAST 03-06 16:38 → EAST 03-12 05:57
PROVIDERS: ADMIT Student in an Organized Health Care Education/Training Program; ATTEND Student in an Organized Health Care Education/Training Program
PROC: 05H933Z Insertion of Infusion Device into Right Brachial Vein, Percutaneous Approach (ICD-10-PCS; principal; 2024-03-09)
PROC: B54MZZA Ultrasonography of Right Upper Extremity Veins, Guidance (ICD-10-PCS; 2024-03-09)
DX: N39.0 Urinary tract infection, site not specified (principal); G93.41 Metabolic encephalopathy; Z16.12 Extended spectrum beta lactamase (ESBL) resistance; E87.0 Hyperosmolality and hypernatremia; M62.82 Rhabdomyolysis; I48.21 Permanent atrial fibrillation; E44.1 Mild protein-calorie malnutrition; Z20.822 Contact with and (suspected) exposure to COVID-19; B96.1 Klebsiella pneumoniae [K. pneumoniae] as the cause of diseases classified elsewhere; G30.9 Alzheimer's disease, unspecified; E87.6 Hypokalemia; E87.8 Other disorders of electrolyte and fluid balance, not elsewhere classified; J44.9 Chronic obstructive pulmonary disease, unspecified; F32.A Depression, unspecified; N40.0 Benign prostatic hyperplasia without lower urinary tract symptoms; F02.C0 Dementia in other diseases classified elsewhere, severe, without behavioral disturbance, psychotic disturbance, mood disturbance, and anxiety; Z82.49 Family history of ischemic heart disease and other diseases of the circulatory system; Z79.899 Other long term (current) drug therapy; E73.9 Lactose intolerance, unspecified
CPT/HCPCS: 36415; 70450; 71045; 74176; 80048; 80053; 80307; 81001; 82140; 82306; 82550; 82607; 82962; 83036; 83605; 83735; 84295; 84443; 84484; 85025; 85610; 85730; 87040; 87081; 87086; 87088; 87186; 87426; 87804; 92610; 93005; 97110; 97163; 97530; 99291; G0378; J1335; J1815; J2185; J2470; J3480